=== PATIENT | male | born 1945 | race Caucasian/White ===

== ENCOUNTER 2018-04-29 06:23 | Day surgery (SDC) | payer MEDICARE ==
[2018-04-27 15:38] VITALS: BMI 41.4
[~2018-04-29 06:23] MED LIST: DEXAMETHASONE SOD PHOSPHATE 10 MG/ML 1 ML VIAL IV ONE; LIDOCAINE 1% 20 ML VIAL (10MG/ML) FOR IV START INTRADERMA PRN; ONDANSETRON 4 MG/2 ML VIAL IVP ONE; ONDANSETRON 4 MG/2 ML VIAL IVP PRN; SCOPOLAMINE 1.5MG/72HR PATCH TRANSDERM ONE
[2018-04-29] MEDS ORDERED: LACTATED RINGERS 1,000 ML IV SCH (06:30)
[2018-04-29 07:17] VITALS: RESP 18; TEMP 96.5
[2018-04-29 07:18] LABS: Glucose,Whole Blood 108 mg/dL (75-99)
[2018-04-29] MEDS ORDERED: PROPOFOL 10 MG/ML 20 ML VIAL IV ONE (08:28)
[2018-04-29] MEDS ORDERED: LIDOCAINE 1% INJ 10MG/ML (20 ML MDV) ONE (08:28)
[2018-04-29 09:01] VITALS: BP 126/77; PULSE 65
[2018-04-29 09:03] LABS: Glucose,Whole Blood 112 mg/dL (75-99)
--- NOTE | 2018-04-29 13:59 | P.PCN ---
Date of Procedure: 04/29/18 Procedure(s) Performed: Procedure: Esophagogastroduodenoscopy. Preoperative diagnosis: History of anemia and history of esophageal varices that required band ligation in the past. Postoperative diagnosis: Gastritis consistent with portal gastropathy and small sliding hiatal hernia but no evidence of gastric or esophageal varices or spontaneous bleeding. Preparation and sedation: Was provided by anesthesia. Brief clinical history: The patient is a 72-year-old male with history of diabetes mellitus, stage III chronic kidney disease and chronic congestive heart failure and bilateral lower extremity cellulitis. The patient was initially hospitalized back in early 2015 because of GI bleeding and anemia and was found to have esophageal varices and portal gastropathy. He had band ligation of his varices in August and in September 2015. He has required 5 units of packed cells transfused around the onset of that illness. An EGD and colonoscopy was performed 07/20/[address] Martinez and the patient was referred because of the finding of varices. The patient had the working diagnosis of nonalcoholic fatty liver disease although he did give history of drinking alcohol 6 or 7 years prior. This evaluation today is to assess his varices and initiate band ligation to prevent further bleeding Procedure: With the patient on his left lateral decubitus position and after informed consent and adequate sedation, I passed the Olympus GIF-140 60 video upper endoscope through the cricopharyngeus down the esophagus. The previously described esophageal varices were found well obliterated with no stigmata of bleeding. GE junction was around 42 cm from the incisors and there was a small sliding hiatal hernia. The endoscope was then passed into the stomach which was insufflated with air and inspected in detail including the retroflex view in the cardia. The antrum and immediate prepyloric area showed diffuse submucosal hemorrhages and erythema and some degree of edema as previously described but no ulcers or active bleeding. Pyloric channel, duodenal bulb, post bulbar area and descending duodenum appeared within normal limits. The patient tolerated the procedure well. Plan: The patient was reassured. Will allow regular diet. He'll follow up in the office as planned regarding his liver workup and management and we will keep you updated on his progress.
== END 2018-04-29 09:42 | disposition home or self-care (01) ==
LOC: ORWHC2ENDO 06:23
DX: K29.70 Gastritis, unspecified, without bleeding (principal); K31.89 Other diseases of stomach and duodenum; K44.9 Diaphragmatic hernia without obstruction or gangrene; D50.0 Iron deficiency anemia secondary to blood loss (chronic); I85.00 Esophageal varices without bleeding; K21.9 Gastro-esophageal reflux disease without esophagitis; E11.22 Type 2 diabetes mellitus with diabetic chronic kidney disease; I13.0 Hypertensive heart and chronic kidney disease with heart failure and stage 1 through stage 4 chronic kidney disease, or unspecified chronic kidney disease; N18.3 Chronic kidney disease, stage 3 (moderate); I50.9 Heart failure, unspecified; Z79.84 Long term (current) use of oral hypoglycemic drugs; E78.5 Hyperlipidemia, unspecified; Z79.2 Long term (current) use of antibiotics; Z79.899 Other long term (current) drug therapy; M19.90 Unspecified osteoarthritis, unspecified site; L03.116 Cellulitis of left lower limb; L03.115 Cellulitis of right lower limb
CPT/HCPCS: 43235; J2001; J2704

== ENCOUNTER 2018-08-13 22:09 | Inpatient (IN) | payer MEDICAID, MEDICARE, OTHER ==
[2018-08-13] MEDS ORDERED: SODIUM CHLORIDE 0.9% 500 ML 500 ML IV STA (22:43)
[2018-08-13] MEDS ORDERED: SODIUM CHLORIDE 0.9% 1,000 ML IV STA (22:43)
[2018-08-13] MEDS ORDERED: LACTULOSE 200 GM/300 ML (FROM 1/2 GAL JUG) RECTAL ONE (22:43)
--- NOTE | 2018-08-13 22:49 | ED ---
Altered Mental Status HPI - General Chief Complaint: Recheck/Abnormal Lab/Rx Stated Complaint: lethargic Time Seen by Provider: 08/13/18 22:13 Source: EMS, RN notes reviewed, old records reviewed Mode of arrival: EMS Limitations: altered mental status - History of Present Illness Initial Comments: This is a 72-year-old male except in transfer patient is poor historian history obtained from patient's chart as well as patient's prior medical record. EMS MD Complaint: altered mental status, confusion, weakness -: days(s) Severity: moderate Consistency of Symptoms: waxing and waning, getting worse Context: liver disease Associated Symptoms: denies other symptoms - Related Data Home Medications Medication Instructions Recorded Confirmed Acetaminophen Tab [Tylenol] 650 mg PO TID PRN 08/13/18 08/13/18 Ergocalciferol (Vitamin D2) 50,000 unit PO Q7DAYS 08/13/18 08/13/18 [Drisdol] Famotidine [Pepcid] 20 mg PO HS 08/13/18 08/13/18 HYDROcodone/APAP 5-325MG [[place] 1 tab PO DIRECTED 08/13/18 08/13/18 5-325] Midodrine HCl [ProAmatine] 10 mg PO MOWEFR 08/13/18 08/13/18 Nystatin 100,000Unit/gm Cream 1 applic TOPICAL DIRECTED 08/13/18 08/13/18 [Mycostatin Cream] Petrolatum, White [Aquaphor] 1 applic TOPICAL DAILY 08/13/18 08/13/18 Pravastatin Sodium [Pravachol] 40 mg PO HS 08/13/18 08/13/18 Propranolol HCl [Inderal] 60 mg PO TID 08/13/18 08/13/18 Simethicone 80 mg PO Q6HR 08/13/18 08/13/18 guaiFENesin [Diabetic Tussin Ex] 200 mg PO Q4HR PRN 08/13/18 08/13/18 Allergies Allergy/AdvReac Type Severity Reaction Status Date / Time No Known Allergies Allergy Verified 08/13/18 23:37 Review of Systems ROS Statement: Those systems with pertinent positive or pertinent negative responses have been documented in the HPI. ROS Other: All systems not noted in ROS Statement are negative. Past Medical History Past Medical History: Diabetes Mellitus, Eye Disorder, GERD/Reflux, GI Bleed, Hyperlipidemia, Hypertension, Osteoarthritis (OA), Skin Disorder Additional Past Medical History / Comment(s): HX GI BLEEDING. esophageal varicies History of Any Multi-Drug Resistant Organisms: None Reported Past Surgical History: Cholecystectomy, Heart Catheterization, Orthopedic Surgery, Tonsillectomy Additional Past Surgical History / Comment(s): colonoscopy, right kneerepair 3, . esophoheal varicies banding Past Anesthesia/Blood Transfusion Reactions: No Reported Reaction Past Psychological History: No Psychological Hx Reported Smoking Status: Never smoker Past Alcohol Use History: None Reported Past Drug Use History: None Reported - Past Family History Mother Family Medical History: Hypertension, Myocardial Infarction ([place]) Father Family Medical History: Hypertension, Myocardial Infarction ([place]) General Exam Limitations: altered mental status General appearance: alert, in no apparent distress, lethargic Head exam: Present: atraumatic, normocephalic, normal inspection Eye exam: Present: normal appearance, PERRL, EOMI. Absent: scleral icterus, conjunctival injection, periorbital swelling ENT exam: Present: normal exam, mucous membranes moist Neck exam: Present: normal inspection. Absent: tenderness, meningismus, lymphadenopathy Respiratory exam: Present: normal lung sounds bilaterally. Absent: respiratory distress, wheezes, rales, rhonchi, stridor Cardiovascular Exam: Present: regular rate, normal rhythm, normal heart sounds. Absent: systolic murmur, diastolic murmur, rubs, gallop, clicks GI/Abdominal exam: Present: soft, normal bowel sounds. Absent: distended, tenderness, guarding, rebound, rigid Extremities exam: Present: normal inspection, full ROM, normal capillary refill. Absent: tenderness, pedal edema, joint swelling, calf tenderness Back exam: Present: normal inspection Neurological exam: Present: alert, oriented X3, CN II-XII intact Psychiatric exam: Present: normal affect, normal mood Skin exam: Present: warm, dry, intact, normal color. Absent: rash Course Vital Signs 08/13/18 08/13/18 08/13/18 22:12 22:35 23:00 Temperature 98.2 F Pulse Rate 63 61 63 Respiratory 20 18 21 Rate Blood Pressure 109/79 88/51 91/57 O2 Sat by Pulse 98 93 L 92 L Oximetry 08/13/18 08/14/18 23:38 00:33 Temperature Pulse Rate 62 60 Respiratory 21 15 Rate Blood Pressure 96/42 102/46 O2 Sat by Pulse 96 94 L Oximetry - Reevaluation(s) Reevaluation #1: 08/13/18 22:49 Medical and transfer paperwork are reviewed Reevaluation #2: 08/13/18 22:49 Patient was accepted in transfer from [facility] Patient has multiple recurrences of similar similar complaints, encephalopathy Medical Decision Making - Medical Decision Making 73 male coming in with multiple complaints, sepsis, hepatic encephalopathy as well as chronic renal failure. Patient unresponsive which at this time is baseline. We'll admit for further evaluation management - Lab Data Result diagrams: 08/14/18 07:55 08/14/18 07:55 Disposition Clinical Impression: Weakness, Fever, UTI (urinary tract infection), Encephalopathy, Hyperammonemia , Diabetes Disposition: ADMITTED IP TO THIS HOSP Condition: Fair Is patient prescribed a controlled substance at d/c from ED?: No
[2018-08-13] MEDS: SODIUM CHLORIDE 0.9% 1,000 ML IV SCH (22:58)
[2018-08-14] MEDS: LACTULOSE 200 GM/300 ML (FROM 1/2 GAL JUG) RECTAL SCH ×5 (00:31→23:22)
[2018-08-14 01:50] LABS: Glucose,Whole Blood 108 mg/dL (75-99)
[2018-08-14 01:52] LABS: ABG Base Excess 6.1 mmol/L; ABG HCO3 32 mmol/L (21-25); ABG Oxygen Saturation 93.1 % (94-97); ABG PCO2 62 mmHg (35-45); ABG PH 7.32 (7.35-7.45); ABG PO2 67 mmHg (83-108); ABG TCO2 34 mmol/L (19-24)
[2018-08-14 02:08] LABS: Anisocytosis Slight; HCT 31.8 % (39.0-53.0); HGB 9.2 gm/dL (13.0-17.5); Hypochromasia Marked; MCH 30.8 pg (25.0-35.0); MCHC 29.1 g/dL (31.0-37.0); MCV 105.8 fL (80.0-100.0); Macrocytosis Marked; Mean Platelet Volume 7.4; Platelet Count 100 k/uL (150-450); Poikilocytosis Slight; RDW 19.6 % (11.5-15.5); WBC 4.8 k/uL (3.8-10.6)
--- NOTE | 2018-08-14 02:19 | XR ---
EXAMINATION TYPE: XR chest 1V portable DATE OF EXAM: 08/14/2018 COMPARISON: 01/17/2016 HISTORY: Congestion TECHNIQUE: Single frontal view of the chest is obtained. FINDINGS: There is pulmonary edema. Heart is enlarged. There is blunting of right costophrenic angle . There is right central venous catheter with the tip in the superior vena cava. IMPRESSION: Congestive heart failure with right pleural effusion that is new compared to old exam. C ardiomegaly unchanged.
[2018-08-14 02:20] LABS: Albumin 2.5 g/dL (3.5-5.0); Calcium 8.7 mg/dL (8.4-10.2); Magnesium 1.9 mg/dL (1.6-2.3); Phosphorus 4.7 mg/dL (2.5-4.5); Potassium 3.5 mmol/L (3.5-5.1); Total Bilirubin 1.2 mg/dL (0.2-1.3); Total Protein 7.1 g/dL (6.3-8.2)
[2018-08-14 02:36] LABS: Lactic Acid, Venous 2.4 mmol/L (0.7-2.0)
[2018-08-14 02:48] LABS: Band Neutrophils % 3 %; Eosinophils # (M) 0.19 k/uL (0-0.7); Lymphocytes # (M) 0.91 k/uL (1.0-4.8); Monocytes # (M) 0.24 k/uL (0-1.0); Neutrophils % (M) 70 %; Nucleated Red Blood Cells 1 /100 WBC (0-0); Total Cells Counted 200
[2018-08-14] MEDS ORDERED: SODIUM CHLORIDE 0.9% 1,000 ML IV ONE (03:00)
[2018-08-14] MEDS ORDERED: NALOXONE 0.4 MG/ML 1 ML VIAL IV PRN (03:51)
[2018-08-14] MEDS: SODIUM CHLORIDE 0.9% 1,000 ML IV SCH ×2 (04:00→20:19)
[2018-08-14 06:19] LABS: Glucose,Whole Blood 99 mg/dL (75-99)
--- NOTE | 2018-08-14 07:13 | XR ---
EXAMINATION TYPE: XR chest 1V DATE OF EXAM: 08/14/2018 CLINICAL HISTORY: Difficulty breathing progress study. TECHNIQUE: Single AP portable semiupright view of the chest is obtained. COMPARISON: Chest x-ray from earlier today and older studies. FINDINGS: There is stable right internal jugular dual-lumen dialysis catheter. There is persistent c ardiomegaly. There is bilateral reticulonodular change with more prominent right basilar opacity. The re is right-sided volume loss with mediastinal shift. There is ectatic thoracic aorta. IMPRESSION: Overall stable findings from x-ray earlier today, there is cardiomegaly with moderate siz e right pleural effusion and associated right basilar atelectasis and/or infiltrate. New reticular no dular opacities bilaterally could reflect background of diffuse edema and/or infiltrates but nodulari ty is concerning. Metastatic disease and septic emboli are in the differential. Correlate clinically.
[2018-08-14 08:23] LABS: Calcium 9.1 mg/dL (8.4-10.2); Potassium 3.5 mmol/L (3.5-5.1)
[2018-08-14 08:29] LABS: Anisocytosis Slight; Basophils % (A) 1 %; Eosinophils # (A) 0.1 k/uL (0-0.7); Eosinophils % (A) 3 %; HCT 31.1 % (39.0-53.0); Hypochromasia Marked; Lymphocytes # (A) 0.8 k/uL (1.0-4.8); Lymphocytes % (A) 18 %; MCH 30.1 pg (25.0-35.0); MCHC 28.9 g/dL (31.0-37.0); MCV 104.1 fL (80.0-100.0); Macrocytosis Marked; Mean Platelet Volume 7.7; Monocytes # (A) 0.4 k/uL (0-1.0); Monocytes % (A) 9 %; Neutrophils # (A) 2.8 k/uL (1.3-7.7); Neutrophils % (A) 66 %; RBC 2.99 m/uL (4.30-5.90); RDW 19.5 % (11.5-15.5); WBC 4.3 k/uL (3.8-10.6)
[2018-08-14] MEDS ORDERED: ENOXAPARIN 40 MG/0.4 ML SYRINGE SQ SCH (09:00)
[2018-08-14] MEDS: PANTOPRAZOLE 40 MG/10 ML VIAL IV SCH (09:43)
[2018-08-14] MEDS ORDERED: RX INFO: IV CONTRAST WAS GIVEN 1 EACH MISC MISCELLANE PRN (09:55)
--- NOTE | 2018-08-14 10:08 | P.CNPUL ---
History of Present Illness Consult date: 08/14/18 Requesting physician: Brandee Thrasher Reason for consult: other (Critical care management) Chief complaint: Altered mental status History of present illness: This is a 72-year-old gentleman who follows with Dr. Hayden as his primary care physician. He has a history of end-stage renal disease receiving hemodialysis on Thursday, previous alcohol abuse, previous GI bleeding, hypertension, hyperlipidemia, diabetes mellitus. He was transferred here to the regular medical floor from [facility] yesterday due to altered mental status. He was found to have a fever of unknown origin and elevated ammonia levels. He subsequently developed hypotension and respiratory distress and an A team was called and he was transferred here to the intensive care unit. He is seen today in consultation. He is currently on BiPAP 14/5 and 50% FiO2 to maintain O2 saturations in the 90s. He is currently quite weak and obtunded. Difficult to arouse. He currently has a 0.9 normal saline at 100 MLS per hour. No urine output currently. Chest x-ray shows evidence of cardiomegaly with moderate size right pleural effusion and associated right basilar atelectasis and/or infiltrate. Reticular nodular opacities bilaterally possibly reflecting diffuse edema and/or infiltrates but nodularity is concerning. Metastatic disease and septic emboli air in the differential. White count 4.8. Hemoglobin 9.2. Platelet count 100,000 and creatinine 2.05. Initial lactic acid 2.4 currently 2.1. Current ammonia level 27. He did receive lactulose. He does have multiple open wounds on the lower extremities and sacral area. He'll be initiated on Unasyn. Review of Systems ROS unobtainable: due to mental status Past Medical History Past Medical History: Diabetes Mellitus, Eye Disorder, GERD/Reflux, GI Bleed, Hyperlipidemia, Hypertension, Osteoarthritis (OA), Skin Disorder Additional Past Medical History / Comment(s): HX GI BLEEDING. esophageal varicies History of Any Multi-Drug Resistant Organisms: None Reported Past Surgical History: Cholecystectomy, Heart Catheterization, Orthopedic Surgery, Tonsillectomy Additional Past Surgical History / Comment(s): colonoscopy, right kneerepair 3, . esophoheal varicies banding Past Anesthesia/Blood Transfusion Reactions: No Reported Reaction Smoking Status: Never smoker - Past Family History Mother Family Medical History: Hypertension, Myocardial Infarction ([place]) Father Family Medical History: Hypertension, Myocardial Infarction ([place]) Medications and Allergies Home Medications Medication Instructions Recorded Confirmed Type Acetaminophen Tab [Tylenol] 650 mg PO TID PRN 08/13/18 08/13/18 History Ergocalciferol (Vitamin D2) 50,000 unit PO Q7DAYS 08/13/18 08/13/18 History [Drisdol] Famotidine [Pepcid] 20 mg PO HS 08/13/18 08/13/18 History HYDROcodone/APAP 5-325MG [[place] 1 tab PO DIRECTED 08/13/18 08/13/18 History 5-325] Midodrine HCl [ProAmatine] 10 mg PO MOWEFR 08/13/18 08/13/18 History Nystatin 100,000Unit/gm Cream 1 applic TOPICAL DIRECTED 08/13/18 08/13/18 History [Mycostatin Cream] Petrolatum, White [Aquaphor] 1 applic TOPICAL DAILY 08/13/18 08/13/18 History Pravastatin Sodium [Pravachol] 40 mg PO HS 08/13/18 08/13/18 History Propranolol HCl [Inderal] 60 mg PO TID 08/13/18 08/13/18 History Simethicone 80 mg PO Q6HR 08/13/18 08/13/18 History guaiFENesin [Diabetic Tussin Ex] 200 mg PO Q4HR PRN 08/13/18 08/13/18 History Allergies Allergy/AdvReac Type Severity Reaction Status Date / Time No Known Allergies Allergy Verified 08/13/18 23:37 Physical Exam Vitals: Vital Signs Temp Pulse Pulse Resp BP BP Pulse Ox 08/14/18 06:00 56 L 16 90/50 93 L 08/14/18 05:30 56 L 14 91/44 93 L 08/14/18 05:00 56 L 14 86/45 94 L 08/14/18 04:46 53 L 14 78/38 93 L 08/14/18 04:00 97.8 F 57 L 14 86/42 94 L 08/14/18 03:30 56 L 14 78/58 93 L 08/14/18 03:00 57 L 14 80/48 99 08/14/18 02:30 60 14 87/48 94 L 08/14/18 02:15 97.7 F 61 16 86/56 89 L 02/02/19 00:33 60 15 102/46 94 L 08/13/18 23:38 62 21 96/42 96 08/13/18 23:00 63 21 91/57 92 L 08/13/18 22:35 61 18 88/51 93 L 08/13/18 22:12 98.2 F 63 20 109/79 98 Intake and Output 08/13/18 08/14/18 08/14/18 22:59 06:59 14:59 Intake Total 1200 200 Output Total 0 0 Balance 1200 200 Intake: Intake, IV Titration 1200 200 Amount Sodium Chloride 0.9% 1, 200 200 000 ml @ 100 mls/hr IV . Q10H STA Rx#:[id number] Sodium Chloride 0.9% 1, 1000 000 ml @ 999 mls/hr IV . Q1H1M ONE Rx#:[id number] Output: Urine 0 0 Stool 0 Other: Voiding Method Indwelling Catheter Weight 127.006 kg - Constitutional General appearance: disheveled, mild distress, morbidly obese - EENT Eyes: EOMI, PERRLA ENT: hearing grossly normal Ears: bilateral: normal - Neck Neck: normal ROM Carotids: bilateral: upstroke normal Thyroid: bilateral: normal size - Respiratory Respiratory: bilateral: rales, rhonchi, prolonged expiration - Cardiovascular Rhythm: regular Heart sounds: normal: S1, S2 - Gastrointestinal General gastrointestinal: normal bowel sounds - Integumentary Integumentary: cellulitis, ulcer - Neurologic Obtunded. - Musculoskeletal Musculoskeletal: generalized weakness - Psychiatric Unable to assess. Results - Laboratory Findings CBC and BMP: 08/14/18 07:55 08/14/18 07:55 ABG ABG pH 7.32 (7.35-7.45) L 08/14/18 01:47 ABG pCO2 62 mmHg (35-45) H 08/14/18 01:47 ABG pO2 67 mmHg (83-108) L 08/14/18 01:47 ABG O2 Saturation 93.1 % (94-97) L 08/14/18 01:47 Abnormal lab findings: Abnormal Labs 08/14/18 08/14/18 08/14/18 01:38 01:47 01:53 RBC 3.00 L Hgb 9.2 L Hct 31.8 L MCV 105.8 H MCHC 29.1 L RDW 19.6 H Plt Count 100 L Lymphocytes # (Manual) 0.91 L Nucleated RBCs 1 H ABG pH 7.32 L ABG pCO2 62 H ABG pO2 67 L ABG HCO3 32 H ABG Total CO2 34 H ABG O2 Saturation 93.1 L BUN Creatinine Glucose POC Glucose (mg/dL) 108 H Plasma Lactic Acid Lucio Phosphorus AST Alkaline Phosphatase Albumin 08/14/18 08/14/18 08/14/18 01:53 01:53 05:51 RBC Hgb Hct MCV MCHC RDW Plt Count Lymphocytes # (Manual) Nucleated RBCs ABG pH ABG pCO2 ABG pO2 ABG HCO3 ABG Total CO2 ABG O2 Saturation BUN Creatinine 2.05 H Glucose 113 H POC Glucose (mg/dL) Plasma Lactic Acid Lucio 2.4 H* 2.1 H* Phosphorus 4.7 H AST 94 H Alkaline Phosphatase 252 H Albumin 2.5 L 08/14/18 08/14/18 07:55 07:55 RBC 2.99 L Hgb 9.0 L Hct 31.1 L MCV 104.1 H MCHC 28.9 L RDW 19.5 H Plt Count Lymphocytes # (Manual) Nucleated RBCs ABG pH ABG pCO2 ABG pO2 ABG HCO3 ABG Total CO2 ABG O2 Saturation BUN 21 H Creatinine 2.16 H Glucose 103 H POC Glucose (mg/dL) Plasma Lactic Acid Lucio Phosphorus 5.0 H AST Alkaline Phosphatase Albumin - Diagnostic Findings Chest x-ray: image reviewed Assessment and Plan Assessment: Impression: #1 Altered mental status of unclear etiology. Suspect metabolic encephalopathy secondary to suspected sepsis. #2 Lactic acidosis contrary to suspected sepsis possibly cellulitis from the lower extremities and coccyx area wounds. #3 Acute hypoxic/hypercapnic respiratory failure secondary to fluid volume overload and possible septic emboli, right pleural effusion with infiltrate. Currently requiring BiPAP support. #4 Morbid obesity. #5 Previous history of alcoholism. #6 Anemia secondary to above. #7 Thrombocytopenia secondary to above. #8 Acute on chronic renal failure with end-stage renal disease receiving renal replacement therapy with hemodialysis Thursday. #9 Diabetes mellitus #10 Hypertension, history of. #11 Hyperlipidemia. #12 History of GI bleed and esophageal varices status post banding. Plan: The patient was seen and evaluated by Dr. Matamoros. Chest x-ray and labs were reviewed. There is some component of fluid volume overload including a right pleural effusion and possible infiltrate with some nodular densities and possible septic emboli. We'll obtain a computed tomography scan of the chest today. Added Unasyn. Nephrology consult. He did speak with the patient's power of city attorney, his brother Daniel Morales regarding the multiple comorbidities and poor prognosis at this point. The patient is a DO NOT INTUBATE CODE STATUS. We'll continue with full supportive care for now. He may benefit from a hospice/comfort care consult once the family agrees. We will continue to follow and make further recommendations based on his clinical status. I, the cosigning physician, performed a history & physical examination of the patient. Lungs sounds with few scattered rhonchi, crackles in the right posterior base, diminished. Maintaining good O2 saturations in the 90s on BiPAP 14/5 with FiO2 at 50%. I discussed the assessment and plan of care with my nurse practitioner, Estrellita Sinha. I attest to the above consultation as dictated by her. Time with Patient: Greater than 30
--- NOTE | 2018-08-14 10:22 | P.CNNES ---
History of Present Illness Consult date: 08/14/18 Chief complaint: Altered mental status, transferred from [facility] History of Present Illness: Gentleman from [facility] currently on dialysis via right jugular permacath, unclear how long. As per paper chart started somewhere end of June 2018 and July 2018. Unable to provide any history currently on BiPAP. Hypotensive with systolics in 80s to 90s. He has elevated ammonia and wound infections. Started on antibiotics in ICU currently not on pressors. 15 mL of urine output since last night via Davies catheter. Chest x-ray shows right pleural effusion with pneumonia versus septic emboli. He takes midodrine at home. Review of Systems ROS unobtainable: due to mental status (Unable to obtain at this point) Past Medical History Past Medical History: Diabetes Mellitus, Eye Disorder, GERD/Reflux, GI Bleed, Hyperlipidemia, Hypertension, Osteoarthritis (OA), Skin Disorder Additional Past Medical History / Comment(s): HX GI BLEEDING. esophageal varicies History of Any Multi-Drug Resistant Organisms: None Reported Past Surgical History: Cholecystectomy, Heart Catheterization, Orthopedic Surgery, Tonsillectomy Additional Past Surgical History / Comment(s): colonoscopy, right kneerepair 3, . esophoheal varicies banding Past Anesthesia/Blood Transfusion Reactions: No Reported Reaction Smoking Status: Never smoker - Past Family History Mother Family Medical History: Hypertension, Myocardial Infarction ([place]) Father Family Medical History: Hypertension, Myocardial Infarction ([place]) Medications and Allergies Home Medications Medication Instructions Recorded Confirmed Type Acetaminophen Tab [Tylenol] 650 mg PO TID PRN 08/13/18 08/13/18 History Ergocalciferol (Vitamin D2) 50,000 unit PO Q7DAYS 08/13/18 08/13/18 History [Drisdol] Famotidine [Pepcid] 20 mg PO HS 08/13/18 08/13/18 History HYDROcodone/APAP 5-325MG [[place] 1 tab PO DIRECTED 08/13/18 08/13/18 History 5-325] Midodrine HCl [ProAmatine] 10 mg PO MOWEFR 08/13/18 08/13/18 History Nystatin 100,000Unit/gm Cream 1 applic TOPICAL DIRECTED 08/13/18 08/13/18 History [Mycostatin Cream] Petrolatum, White [Aquaphor] 1 applic TOPICAL DAILY 08/13/18 08/13/18 History Pravastatin Sodium [Pravachol] 40 mg PO HS 08/13/18 08/13/18 History Propranolol HCl [Inderal] 60 mg PO TID 08/13/18 08/13/18 History Simethicone 80 mg PO Q6HR 08/13/18 08/13/18 History guaiFENesin [Diabetic Tussin Ex] 200 mg PO Q4HR PRN 08/13/18 08/13/18 History Allergies Allergy/AdvReac Type Severity Reaction Status Date / Time No Known Allergies Allergy Verified 08/13/18 23:37 Physical Examination - Vital Signs Vital Signs: Vital Signs Temp Pulse Pulse Resp BP BP Pulse Ox 08/14/18 09:30 54 L 8 L 103/91 98 08/14/18 09:00 55 L 11 L 83/42 94 L 08/14/18 08:30 55 L 11 L 86/52 96 08/14/18 08:01 97.5 F L 56 L 11 L 81/45 92 L 08/14/18 07:30 53 L 9 L 87/42 95 08/14/18 06:00 56 L 16 90/50 93 L 08/14/18 05:30 56 L 14 91/44 93 L 08/14/18 05:00 56 L 14 86/45 94 L 08/14/18 04:46 53 L 14 78/38 93 L 08/14/18 04:00 97.8 F 57 L 14 86/42 94 L 08/14/18 03:30 56 L 14 78/58 93 L 08/14/18 03:00 57 L 14 80/48 99 08/14/18 02:30 60 14 87/48 94 L 08/14/18 02:15 97.7 F 61 16 86/56 89 L 08/14/18 00:33 60 15 102/46 94 L 08/13/18 23:38 62 21 96/42 96 08/13/18 23:00 63 21 91/57 92 L 08/13/18 22:35 61 18 88/51 93 L 08/13/18 22:12 98.2 F 63 20 109/79 98 Intake and Output 08/13/18 08/14/18 08/14/18 22:59 06:59 14:59 Intake Total 1200 300 Output Total 0 15 Balance 1200 285 Intake: IV 100 Sodium Chloride 0.9% 1, 100 000 ml @ 100 mls/hr IV . Q10H DANIEL Rx#:[id number] Intake, IV Titration 1200 200 Amount Sodium Chloride 0.9% 1, 200 200 000 ml @ 100 mls/hr IV . Q10H STA Rx#:[id number] Sodium Chloride 0.9% 1, 1000 000 ml @ 999 mls/hr IV . Q1H1M ONE Rx#:[id number] Output: Urine 0 15 Stool 0 Other: Voiding Method Indwelling Catheter Weight 127.006 kg No acute distress Right jugular permacath S1-S2 heard Diminished breath sounds Edema. Results - Laboratory Findings CBC and BMP: 08/14/18 07:55 08/14/18 07:55 Abnormal Lab Findings: Abnormal Labs 08/14/18 08/14/18 08/14/18 01:38 01:47 01:53 RBC 3.00 L Hgb 9.2 L Hct 31.8 L MCV 105.8 H MCHC 29.1 L RDW 19.6 H Plt Count 100 L Lymphocytes # (Manual) 0.91 L Nucleated RBCs 1 H ABG pH 7.32 L ABG pCO2 62 H ABG pO2 67 L ABG HCO3 32 H ABG Total CO2 34 H ABG O2 Saturation 93.1 L BUN Creatinine Glucose POC Glucose (mg/dL) 108 H Plasma Lactic Acid Lucio Phosphorus AST Alkaline Phosphatase Albumin 08/14/18 08/14/18 08/14/18 01:53 01:53 05:51 RBC Hgb Hct MCV MCHC RDW Plt Count Lymphocytes # (Manual) Nucleated RBCs ABG pH ABG pCO2 ABG pO2 ABG HCO3 ABG Total CO2 ABG O2 Saturation BUN Creatinine 2.05 H Glucose 113 H POC Glucose (mg/dL) Plasma Lactic Acid Lucio 2.4 H* 2.1 H* Phosphorus 4.7 H AST 94 H Alkaline Phosphatase 252 H Albumin 2.5 L 08/14/18 08/14/18 07:55 07:55 RBC 2.99 L Hgb 9.0 L Hct 31.1 L MCV 104.1 H MCHC 28.9 L RDW 19.5 H Plt Count Lymphocytes # (Manual) Nucleated RBCs ABG pH ABG pCO2 ABG pO2 ABG HCO3 ABG Total CO2 ABG O2 Saturation BUN 21 H Creatinine 2.16 H Glucose 103 H POC Glucose (mg/dL) Plasma Lactic Acid Lucio Phosphorus 5.0 H AST Alkaline Phosphatase Albumin Assessment and Plan Assessment: #1 encephalopathy suspected sepsis and hypotension. #2 ESRD/HERMELINDO on HD, unclear based on the paper chart. #3 severe sepsis with marginal blood pressures. #4 pleural effusion with septic emboli #5 anemia #6 edema Plan: #1 no acute indication for hemodialysis today. Agree with IV fluids for now. #[address] chest with contrast. #3 antibiotics per primary team #4 restart midodrine #5 prognosis guarded with multiple comorbid conditions.
[2018-08-14 10:59] LABS: Platelet Count 74 k/uL (150-450)
[2018-08-14] MEDS: AMPICILLIN-SULBACTAM 3 GM in SODIUM CHLORIDE 0.9% 100 ML IVPB SCH ×3 (11:20→23:22)
[2018-08-14] MEDS: IPRATROPIUM-ALBUTEROL 3 ML NEB INHALATION SCH ×4 (12:16→23:30)
[2018-08-14 12:21] LABS: Glucose,Whole Blood 111 mg/dL (75-99)
--- NOTE | 2018-08-14 12:32 | CT ---
EXAMINATION TYPE: CT chest w con DATE OF EXAM: 08/14/2018 COMPARISON: Chest x-ray earlier today and older studies HISTORY: Resp. failure, nodular density. Abno rmal chest x-ray. CT DLP: 846.3 mGycm. Automated Exposure Control for Dose Reduction was Utilized. TECHNIQUE: CT scan of the thorax is performed following with IV Contrast, patient injected with 100 mL of Isovue 300. FINDINGS: LUNGS: There is only small right pleural fluid collection which does not completely layer dependently . There is more prominent central right lung atelectasis and/or consolidation with relative sparing o f the right upper lobe and the anterior mid lung. Elevated right hemidiaphragm is noted. Correspondin g to chest x-ray there are scattered small nodules and nodular consolidation seen bilaterally for ref erence is 1.3 x 1.1 cm right middle lobe nodule axial image 20, nodules are seen bilaterally involvin g upper and lower lungs. Majority are subcentimeter in size. There is dependent atelectasis in the le ft lung base. No cavitary lesions are present bilaterally. MEDIASTINUM: There are no greater than 1 cm hilar or mediastinal lymph nodes. Prominent but subcentim eter lymph nodes in the paratracheal region and prevascular region are noted No pericardial effusio n is seen. Main pulmonary artery is dilated at 4.2 cm image 18, CT findings consistent with underlyi ng pulmonary artery hypertension. Right internal jugular dialysis catheter terminates in SVC. There i s right-sided volume loss with mediastinal shift to the right. Coronary artery calcification is prese nt which is noted marker for coronary artery disease. Heart size is perhaps mildly enlarged with ante rior rotation of cardiac apex. Prominence of intra-arterial fat is present in the interarterial septu m. OTHER: There is heterogeneous liver with lobulated peripheral margin with focal right hepatic dome ir regular hypodense mass measuring approximately 10 x 9.1 cm axial image 34, surrounding ascites is pre sent. Spleen is mildly enlarged 14.0 cm coronal image 72 with mild surrounding ascites. Cholecystecto my clips are present. IMPRESSION: 1. Suspect cirrhotic liver with suspicious right hepatic dome mass worrisome for focal HCC. There is hepatosplenomegaly with mild surrounding ascites. 2. Scattered bilateral pulmonary nodules suspicious for diffuse metastatic disease given suspicion fo r focal HCC. Correlate clinically. 3. Small nondependent right pleural fluid collection. No moderate-sized pleural effusion is noted.
[2018-08-14] MEDS ORDERED: SODIUM CHLORIDE 0.9% 500 ML 500 ML IV ONE ×2 (13:44)
--- NOTE | 2018-08-14 15:40 | P.HPIM ---
History of Present Illness H&P Date: 08/14/18 Chief Complaint: Altered mental status 72-year-old gentleman with a past medical history significant for ESRD on dialysis Thursday and Thursday history of hypertension, hyperlipidemia, diabetes history please GI bleed and alcohol abuse comes in to the hospital for above-mentioned complaints. Patient apparently was initially admitted to [facility] for altered mental status. His blood pressures were on the lower side and 80s and 90s and the family wanted the patient be transferred to [facility]. He was initially admitted to [facility] on Gen. medical floor but since his blood pressures were low , A team was called and patient was transferred to ICU. At the time examination the patient was awake but minimally responsive and drowsy. He is answering only one-word sentences. He opens his eyes to be calling his name tries to answer but doesn't answer much. He did not complain of any chest pain racing heart when I asked him. He was complaining of shortness of breath but no cough, no abdominal pain he was moving his upper and lower extremities to command. he is currently put on BiPAP and is managed ICU. Nephrology also consulted. Review of Systems All systems: negative Past Medical History Past Medical History: Diabetes Mellitus, Eye Disorder, GERD/Reflux, GI Bleed, Hyperlipidemia, Hypertension, Osteoarthritis (OA), Skin Disorder Additional Past Medical History / Comment(s): HX GI BLEEDING. esophageal varicies History of Any Multi-Drug Resistant Organisms: None Reported Past Surgical History: Cholecystectomy, Heart Catheterization, Orthopedic Surgery, Tonsillectomy Additional Past Surgical History / Comment(s): colonoscopy, right kneerepair 3, . esophoheal varicies banding Past Anesthesia/Blood Transfusion Reactions: No Reported Reaction Smoking Status: Never smoker - Past Family History Mother Family Medical History: Hypertension, Myocardial Infarction ([place]) Father Family Medical History: Hypertension, Myocardial Infarction ([place]) Medications and Allergies Home Medications Medication Instructions Recorded Confirmed Type Acetaminophen Tab [Tylenol] 650 mg PO TID PRN 08/13/18 08/13/18 History Ergocalciferol (Vitamin D2) 50,000 unit PO Q7DAYS 08/13/18 08/13/18 History [Drisdol] Famotidine [Pepcid] 20 mg PO HS 08/13/18 08/13/18 History HYDROcodone/APAP 5-325MG [Mentor 1 tab PO DIRECTED 08/13/18 08/13/18 History 5-325] Midodrine HCl [ProAmatine] 10 mg PO MOWEFR 08/13/18 08/13/18 History Nystatin 100,000Unit/gm Cream 1 applic TOPICAL DIRECTED 08/13/18 08/13/18 History [Mycostatin Cream] Petrolatum, White [Aquaphor] 1 applic TOPICAL DAILY 08/13/18 08/13/18 History Pravastatin Sodium [Pravachol] 40 mg PO HS 08/13/18 08/13/18 History Propranolol HCl [Inderal] 60 mg PO TID 08/13/18 08/13/18 History Simethicone 80 mg PO Q6HR 08/13/18 08/13/18 History guaiFENesin [Diabetic Tussin Ex] 200 mg PO Q4HR PRN 08/13/18 08/13/18 History Allergies Allergy/AdvReac Type Severity Reaction Status Date / Time No Known Allergies Allergy Verified 08/13/18 23:37 Physical Exam Vitals: Vital Signs Temp Pulse Pulse Resp BP BP Pulse Ox 08/14/18 13:30 57 L 8 L 81/47 95 08/14/18 13:00 59 L 9 L 85/46 90 L 08/14/18 12:30 65 11 L 102/64 91 L 08/14/18 12:00 97.8 F 70 12 114/66 100 08/14/18 11:30 64 12 91/51 96 08/14/18 11:00 54 L 11 L 85/58 93 L 08/14/18 10:30 56 L 12 87/48 92 L 08/14/18 10:00 56 L 12 103/52 93 L 08/14/18 09:30 54 L 8 L 103/91 98 08/14/18 09:00 55 L 11 L 83/42 94 L 08/14/18 08:30 55 L 11 L 86/52 96 08/14/18 08:01 97.5 F L 56 L 11 L 81/45 92 L 08/14/18 07:30 53 L 9 L 87/42 95 08/14/18 06:00 56 L 16 90/50 93 L 08/14/18 05:30 56 L 14 91/44 93 L 08/14/18 05:00 56 L 14 86/45 94 L 08/14/18 04:46 53 L 14 78/38 93 L 08/14/18 04:00 97.8 F 57 L 14 86/42 94 L 08/14/18 03:30 56 L 14 78/58 93 L 08/14/18 03:00 57 L 14 80/48 99 08/14/18 02:30 60 14 87/48 94 L 08/14/18 02:15 97.7 F 61 16 86/56 89 L 08/14/18 00:33 60 15 102/46 94 L 08/13/18 23:38 62 21 96/42 96 08/13/18 23:00 63 21 91/57 92 L 08/13/18 22:35 61 18 88/51 93 L 08/13/18 22:12 98.2 F 63 20 109/79 98 Intake and Output 08/14/18 08/14/18 08/14/18 06:59 14:59 22:59 Intake Total 1200 900 Output Total 0 15 Balance 1200 885 Intake: IV 700 Ampicillin-Sulbactam 3 gm 100 In Sodium Chloride 0.9% 100 ml @ 200 mls/hr IVPB Q6HR DANIEL Rx#:[id number] Sodium Chloride 0.9% 1, 600 000 ml @ 100 mls/hr IV . Q10H DANIEL Rx#:[id number] Intake, IV Titration 1200 200 Amount Sodium Chloride 0.9% 1, 200 200 000 ml @ 100 mls/hr IV . Q10H STA Rx#:[id number] Sodium Chloride 0.9% 1, 1000 000 ml @ 999 mls/hr IV . Q1H1M ONE Rx#:[id number] Output: Urine 0 15 Stool 0 Other: Voiding Method Indwelling Catheter On exam, he is awake but drowsy. Responding to command at this stage HEENT: Conjunctivae normal. eyes normal. NECK: No JVD. No thyroid enlargement. No LNs CARDIOVASCULAR: S1, S2 RESPIRATION: Breath sounds diminished in the bases. I'm not able to appreciate any abnormal sounds ABDOMEN: Soft, nontender . No guarding. no masses palpable. LEGS: Patient is having cellulitis bilaterally. He also has a wound VAC in his left NERVOUS SYSTEM: Patient is drowsy. He is moving all of his upper and lower extremities to command Joints: Patient is having wound VAC of the left hip. Results CBC & Chem 7: 08/14/18 07:55 08/14/18 07:55 Labs: Abnormal Lab Results - Last 24 Hours (Table) 08/14/18 08/14/18 08/14/18 Range/Units 01:38 01:47 01:53 RBC 3.00 L (4.30-5.90) m/uL Hgb 9.2 L (13.0-17.5) gm/dL Hct 31.8 L (39.0-53.0) % MCV 105.8 H (80.0-100.0) fL MCHC 29.1 L (31.0-37.0) g/dL RDW 19.6 H (11.5-15.5) % Plt Count 100 L (150-450) k/uL Lymphocytes # (1.0-4.8) k/uL Lymphocytes # (Manual) 0.91 L (1.0-4.8) k/uL Nucleated RBCs 1 H (0-0) /100 WBC ABG pH 7.32 L (7.35-7.45) ABG pCO2 62 H (35-45) mmHg ABG pO2 67 L (83-108) mmHg ABG HCO3 32 H (21-25) mmol/L ABG Total CO2 34 H (19-24) mmol/L ABG O2 Saturation 93.1 L (94-97) % BUN (9-20) mg/dL Creatinine (0.66-1.25) mg/dL Glucose (74-99) mg/dL POC Glucose (mg/dL) 108 H (75-99) mg/dL Plasma Lactic Acid Lucio (0.7-2.0) mmol/L Phosphorus (2.5-4.5) mg/dL AST (17-59) U/L Alkaline Phosphatase (38-126) U/L Albumin (3.5-5.0) g/dL 08/14/18 08/14/18 08/14/18 Range/Units 01:53 01:53 05:51 RBC (4.30-5.90) m/uL Hgb (13.0-17.5) gm/dL Hct (39.0-53.0) % MCV (80.0-100.0) fL MCHC (31.0-37.0) g/dL RDW (11.5-15.5) % Plt Count (150-450) k/uL Lymphocytes # (1.0-4.8) k/uL Lymphocytes # (Manual) (1.0-4.8) k/uL Nucleated RBCs (0-0) /100 WBC ABG pH (7.35-7.45) ABG pCO2 (35-45) mmHg ABG pO2 (83-108) mmHg ABG HCO3 (21-25) mmol/L ABG Total CO2 (19-24) mmol/L ABG O2 Saturation (94-97) % BUN (9-20) mg/dL Creatinine 2.05 H (0.66-1.25) mg/dL Glucose 113 H (74-99) mg/dL POC Glucose (mg/dL) (75-99) mg/dL Plasma Lactic Acid Lucio 2.4 H* 2.1 H* (0.7-2.0) mmol/L Phosphorus 4.7 H (2.5-4.5) mg/dL AST 94 H (17-59) U/L Alkaline Phosphatase 252 H (38-126) U/L Albumin 2.5 L (3.5-5.0) g/dL 08/14/18 08/14/18 08/14/18 Range/Units 07:55 07:55 12:18 RBC 2.99 L (4.30-5.90) m/uL Hgb 9.0 L (13.0-17.5) gm/dL Hct 31.1 L (39.0-53.0) % MCV 104.1 H (80.0-100.0) fL MCHC 28.9 L (31.0-37.0) g/dL RDW 19.5 H (11.5-15.5) % Plt Count 74 L (150-450) k/uL Lymphocytes # 0.8 L (1.0-4.8) k/uL Lymphocytes # (Manual) (1.0-4.8) k/uL Nucleated RBCs (0-0) /100 WBC ABG pH (7.35-7.45) ABG pCO2 (35-45) mmHg ABG pO2 (83-108) mmHg ABG HCO3 (21-25) mmol/L ABG Total CO2 (19-24) mmol/L ABG O2 Saturation (94-97) % BUN 21 H (9-20) mg/dL Creatinine 2.16 H (0.66-1.25) mg/dL Glucose 103 H (74-99) mg/dL POC Glucose (mg/dL) 111 H (75-99) mg/dL Plasma Lactic Acid Lucio (0.7-2.0) mmol/L Phosphorus 5.0 H (2.5-4.5) mg/dL AST (17-59) U/L Alkaline Phosphatase (38-126) U/L Albumin (3.5-5.0) g/dL Assessment and Plan Assessment: - Acute encephalopathy need to rule out the cause - Possible sepsis due to cellulitis in the lower extremities. - Hypertension - Acute respiratory failure - History of end-stage renal disease on dialysis - Anemia - History of diabetes mellitus - History of hypertension - Hyperlipidemia - History of GI bleed and esophageal paresis status post banding Plan - Patient was admitted to ICU - Discussed with the nephew regarding his grave prognosis and also the new computed tomography scan finding of possible hepatocellular carcinoma and also up pulmonary metastases. Discussed with him about his wishes as to how we wish to be treated in this situation. Nephew is to talk with the rest of the family members and let is no decision - Depending on what family decides we will discuss with the family and the nephew about a possible hospice consult which was also recommended by pulmonology - For now we'll continue the antibiotics - We'll consult infectious disease for their recommendations - Nephrology on board - Continue rest of the medical care as of now - DVT and GI prophylaxis - We will also order for lab work in the morning - Expected length of stay more than 2 midnights - Patient is DO NOT RESUSCITATE Time with Patient: Greater than 30
[2018-08-14 17:15] LABS: Amorphous Sediment,Urine Rare /hpf; Appearance,Urine Turbid (Clear); Bilirubin,Urine 1+ (Negative); Blood,Urine Large (Negative); Color,Urine Red; Glucose,Urine (UA) Negative (Negative); Hyaline Casts,Urine 31 /lpf (0-2); Ketones,Urine Negative (Negative); Leukocyte Esterase,Urine Moderate (Negative); Mucus,Urine Rare /hpf; Nitrite,Urine Negative (Negative); Protein,Urine 2+ (Negative); RBC,Urine 99 /hpf (0-5); Specific Gravity,Urine 1.024 (1.001-1.035); Urobilinogen,Urine <2.0 mg/dL (<2.0); WBC,Urine 28 /hpf (0-5)
[2018-08-14 17:50] LABS: Glucose,Whole Blood 136 mg/dL (75-99)
[2018-08-14 19:27] LABS: Hemoglobin A1C 4.8 % (4.0-6.0)
[2018-08-15 00:17] LABS: Glucose,Whole Blood 72 mg/dL (75-99)
[2018-08-15 03:21] LABS: Glucose,Whole Blood 71 mg/dL (75-99)
--- NOTE | 2018-08-15 03:22 | CONS ---
CONSULTATION DATE OF SERVICE: 08/14/2018. REASON FOR CONSULTATION: Bilateral lower extremity wound cellulitis and a sacral pressure ulcer. HISTORY OF PRESENT ILLNESS: The patient is a 72-year-old male with a past medical history significant for end-stage renal disease on hemodialysis right subclavian [id number]. The patient apparently did have a stage III wound to the left hip area that was being treated with wound VAC. Apparently for 2 weeks as per the nurse's report. However when the dressing was removed today, no wound was noticed. The patient apparently was taken to the [facility] for evaluation of mental status changes and fever with elevated ammonia levels. The patient subsequently was transferred to the [facility] for further evaluation of fever. The patient was on the medical floor. The patient did develop respiratory distress and hypertension. A-Team was called and the patient was subsequently transferred to the ICU. The patient has been started on a BiPAP and a fluid bolus. Currently not on any pressor support. He was noticed to have multiple wounds to the lower extremities. possible cellulitis. The patient was started on Unasyn. Infectious disease was consulted for further recommendation of antibiotic therapy. Most of the information has been obtained from prior review of the chart and talking to the nursing staff. The patient currently on a BiPAP and unable to provide any history. Since the patient has been admitted in the hospital, no fever has been recorded. The patient's white count has been normal at 4.8 and 4.3. Did have a UA that is positive. However, the patient is a dialysis patient and hardly makes any urine. REVIEW OF SYSTEMS: Could not be reliably obtained though the positive points have been mentioned in HPI. PAST MEDICAL HISTORY: Diabetes mellitus, CAD, gastroesophageal reflux disease, GI bleed, hypertension, hyperlipidemia, osteoarthritis, history of esophageal varices. PAST SURGERY HISTORY: Cholecystectomy, heart catheterization, tonsillectomy. SOCIAL HISTORY: No history of smoking, drinking or drug use. FAMILY HISTORY: Mother with history of hypertension and PR. Father with history of hypertension and PR as well. ALLERGIES: No known drug allergies. MEDICATION: The patient is currently on Unasyn 3 g q.6 hours, DuoNeb, Lovenox, lactulose, Narcan and Protonix. PHYSICAL EXAMINATION: Blood pressure is 93/59 with a pulse of 57, temp is 97.3. He is 94% on 50% FIO2. General description is an elderly male lying in bed in no distress. No tachypnea or accessory muscles of respiration use. HEENT: Shows pallor. No scleral icterus. Oral mucosal membranes are dry. No pharyngeal erythema or thrush. Neck: Trachea central. No thyromegaly. Lungs unlabored breathing with decreased breath sounds in the bases. No wheeze or crackles. Heart S1, S2. Regular rate and rhythm. ABDOMEN: Soft, no tenderness. No guarding or rigidity. Extremities: The patient did have some superficial laceration of the wound. No significant slough tissue. No swelling or redness. No foul smell or drainage. He also has a stage II pressure ulcer, sacral area with no significant slough tissue. Neurological: The patient is currently awake, slightly lethargic. . LABS: Hemoglobin 9, white count 4.3, BUN of 21, creatinine 2.16. Electrolytes have been normal. UA was positive. DIAGNOSTIC IMPRESSION AND PLAN: Patient currently admitted to the hospital with mental status changes. The patient also has a lower extremity wound with secondary cellulitis urinary tract infection in this patient who did have a CT of the chest that did not show any pneumonia however did show suspected cirrhotic liver with mass and carcinoma with possible diffuse metastatic disease. PLAN: 1. Local wound care with Aquacel Silver dressing followed by Ronaldo wrap to keep the swelling down. 2. Unasyn to continue, however, dose to be adjusted to 2 g q.12 because of his kidney function. 3. We will follow up on his clinical condition and culture to further adjust medication if needed. Thank you for this consultation. We will follow this patient along with you. MMODL / IJN: [id number] /
[2018-08-15] MEDS: IPRATROPIUM-ALBUTEROL 3 ML NEB INHALATION SCH ×6 (03:24→23:25)
[2018-08-15] MEDS ORDERED: DEXTROSE 50%-WATER 50 ML SYRINGE IVP STA (03:26)
[2018-08-15] MEDS: SODIUM CHLORIDE 0.9% 1,000 ML IV SCH ×2 (03:34→09:52)
[2018-08-15 04:07] LABS: Glucose,Whole Blood 150 mg/dL (75-99)
[2018-08-15 05:51] LABS: Anisocytosis Slight; Basophils % (A) 1 %; Eosinophils # (A) 0.2 k/uL (0-0.7); Eosinophils % (A) 4 %; HCT 31.5 % (39.0-53.0); HGB 9.2 gm/dL (13.0-17.5); Hypochromasia Marked; Lymphocytes % (A) 23 %; MCH 30.7 pg (25.0-35.0); MCHC 29.3 g/dL (31.0-37.0); MCV 105.1 fL (80.0-100.0); Mean Platelet Volume 7.1; Monocytes # (A) 0.4 k/uL (0-1.0); Monocytes % (A) 8 %; Neutrophils # (A) 2.7 k/uL (1.3-7.7); Neutrophils % (A) 63 %; RDW 19.8 % (11.5-15.5); WBC 4.2 k/uL (3.8-10.6)
[2018-08-15] MEDS: AMPICILLIN-SULBACTAM 3 GM in SODIUM CHLORIDE 0.9% 100 ML IVPB SCH ×3 (05:56→16:46)
[2018-08-15 06:01] LABS: Calcium 9.4 mg/dL (8.4-10.2); Phosphorus 5.5 mg/dL (2.5-4.5); Potassium 3.4 mmol/L (3.5-5.1)
[2018-08-15 06:07] LABS: Glucose,Whole Blood 81 mg/dL (75-99)
[2018-08-15 06:14] LABS: Macrocytosis Marked; Platelet Count 65 k/uL (150-450)
[2018-08-15 07:09] LABS: Polychromasia Present; Target Cells Present
[2018-08-15] MEDS: LACTULOSE 200 GM/300 ML (FROM 1/2 GAL JUG) RECTAL SCH (07:10)
--- NOTE | 2018-08-15 07:21 | XR ---
EXAMINATION TYPE: XR chest 1V DATE OF EXAM: 08/15/2018 HISTORY: Shortness of breath. COMPARISON: The second 19 TECHNIQUE: Single view of the chest is submitted. FINDINGS: Demonstrated are scattered senescent parenchymal change. Diffuse reticulonodular pattern persists. Stable right lower lobe atelectasis or pneumonia. Central v enous line unchanged in position. The heart is stable. Hilar and mediastinal structures are within normal limits. Degenerative changes are seen of the dorsal spine. IMPRESSION: 1. Stable chest.
--- NOTE | 2018-08-15 08:30 | P.PN ---
Subjective Progress Note Date: 08/15/18 Principal diagnosis: Altered mental status, lactic acidosis, suspect sepsis, acute hypoxic/ hypercapnic respiratory failure, hepatocellular carcinoma with metastases This is a 72-year-old gentleman who follows with Dr. Hayden as his primary care physician. He has a history of end-stage renal disease receiving hemodialysis on Thursday, previous alcohol abuse, previous GI bleeding, hypertension, hyperlipidemia, diabetes mellitus. He was transferred here to the regular medical floor from [facility] yesterday due to altered mental status. He was found to have a fever of unknown origin and elevated ammonia levels. He subsequently developed hypotension and respiratory distress and an A team was called and he was transferred here to the intensive care unit. He is seen today in consultation. He is currently on BiPAP 14/5 and 50% FiO2 to maintain O2 saturations in the 90s. He is currently quite weak and obtunded. Difficult to arouse. He currently has a 0.9 normal saline at 100 MLS per hour. No urine output currently. Chest x-ray shows evidence of cardiomegaly with moderate size right pleural effusion and associated right basilar atelectasis and/or infiltrate. Reticular nodular opacities bilaterally possibly reflecting diffuse edema and/or infiltrates but nodularity is concerning. Metastatic disease and septic emboli air in the differential. White count 4.8. Hemoglobin 9.2. Platelet count 100,000 and creatinine 2.05. Initial lactic acid 2.4 currently 2.1. Current ammonia level 27. He did receive lactulose. He does have multiple open wounds on the lower extremities and sacral area. He'll be initiated on Unasyn. On 08/15/2018 patient seen in follow-up in the intensive care unit. He is awake and alert, oriented 2, to person and place, extremely weak, he had been on BiPAP with pressures of 14 and 5 and FiO2 of 50%, and he has been given a trial of nasal cannula, and is currently on 15 L high flow. No fever, no chills , hemodynamically patient is stable, IV fluids 0.9 normal saline at a rate of 100 ML per hour, no other drips. CT chest was done yesterday, and showed a spec cirrhotic liver with suspicious right hepatic dome mass, possible hepatocellular carcinoma, hepatosplenomegaly with mild surrounding ascites. There were scattered bilateral pulmonary nodules suspicious for diffuse metastatic disease, small right pleural fluid collection. Patient had elevated ammonia, and bilateral lower extremity wound infections. Blood and urine cultures show no growth to date. Final cultures are pending, patient was fluid resuscitated, his blood pressures have improved, today's lab work shows white blood cell count of 4.2, hemoglobin of 9.2, serum sodium is 138, potassium is 3.4, chloride is 104, B1 is 27 and creatinine is 2.54. Nephrology is following , hemodialysis had been held in view of patient's hypotension, patient is on Midrin. And his extremely weak, has a weak congested nonproductive cough. Lung sounds are positive for diffuse rhonchi. Abdomen is obese, but nontender and soft. There is lower extremity edema, lower extremities are wrapped with dressings. ID service is following, and current antibiotic coverage includes Unasyn. We'll status has been discussed with the patient, patient's CODE STATUS is DO NOT RESUSCITATE. Objective - Vital Signs Vital signs: Vital Signs Temp 97.3 F L 08/15/18 04:00 Pulse 63 08/15/18 07:30 Resp 15 08/15/18 07:00 BP 117/55 08/15/18 07:00 Pulse Ox 94 L 08/15/18 07:00 Intake & Output 08/14/18 08/15/18 08/15/18 18:59 06:59 18:59 Intake Total 1400 1400 100 Output Total 21 39 0 Balance 1379 1361 100 Weight 140.6 kg Intake: IV 1200 1400 100 Ampicillin-Sulbactam 3 gm 100 200 In Sodium Chloride 0.9% 100 ml @ 200 mls/hr IVPB Q6HR DANIEL Rx#:[id number] Sodium Chloride 0.9% 1, 1100 1200 100 000 ml @ 100 mls/hr IV . Q10H DANIEL Rx#:[id number] Intake, IV Titration 200 Amount Sodium Chloride 0.9% 1, 200 000 ml @ 100 mls/hr IV . Q10H STA Rx#:[id number] Output: Urine 21 39 0 Other: Voiding Method Indwelling Catheter Indwelling Catheter # Bowel Movements 1 - Exam GENERAL EXAM: Alert, 72-year-old obese white male, and 15 L per high flow nasal cannula comfortable in no apparent distress. HEAD: Normocephalic/atraumatic. EYES: Normal reaction of pupils, equal size. Conjunctiva pink, sclera white. NOSE: Clear with pink turbinates. THROAT: No erythema or exudates. NECK: No masses, no JVD, no thyroid enlargement, no adenopathy. CHEST: No chest wall deformity. Symmetrical expansion. LUNGS: Equal air entry with diffuse rhonchi, patient has a weak nonproductive congested cough CVS: Regular rate and rhythm, normal S1 and S2, no gallops, no murmurs, no rubs ABDOMEN: Soft, nontender. No hepatosplenomegaly, normal bowel sounds, no guarding or rigidity. EXTREMITIES: No clubbing, 2+ lower extremity edema, bilateral lower extremity wounds, covered with dressings, no cyanosis, 2+ pulses and upper and lower extremities. MUSCULOSKELETAL: Muscle strength and tone normal. SPINE: No scoliosis or deformity SKIN: No rashes CENTRAL NERVOUS SYSTEM: Alert and oriented -2. No focal deficits, tone is normal in all 4 extremities. - Labs CBC & Chem 7: 08/15/18 05:34 08/15/18 05:34 Labs: Abnormal Lab Results - Last 24 Hours (Table) 08/14/18 08/14/18 08/14/18 Range/Units 07:55 07:55 12:18 RBC 2.99 L (4.30-5.90) m/uL Hgb 9.0 L (13.0-17.5) gm/dL Hct 31.1 L (39.0-53.0) % MCV 104.1 H (80.0-100.0) fL MCHC 28.9 L (31.0-37.0) g/dL RDW 19.5 H (11.5-15.5) % Plt Count 74 L (150-450) k/uL Lymphocytes # 0.8 L (1.0-4.8) k/uL Potassium (3.5-5.1) mmol/L BUN 21 H (9-20) mg/dL Creatinine 2.16 H (0.66-1.25) mg/dL Glucose 103 H (74-99) mg/dL POC Glucose (mg/dL) 111 H (75-99) mg/dL Phosphorus 5.0 H (2.5-4.5) mg/dL Ammonia (<30) umol/L Urine Protein (Negative) Urine Blood (Negative) Urine Bilirubin (Negative) Ur Leukocyte Esterase (Negative) Urine RBC (0-5) /hpf Urine WBC (0-5) /hpf Amorphous Sediment (None) /hpf Hyaline Casts (0-2) /lpf Urine Mucus (None) /hpf 08/14/18 08/14/18 08/14/18 Range/Units 16:48 17:22 18:35 RBC (4.30-5.90) m/uL Hgb (13.0-17.5) gm/dL Hct (39.0-53.0) % MCV (80.0-100.0) fL MCHC (31.0-37.0) g/dL RDW (11.5-15.5) % Plt Count (150-450) k/uL Lymphocytes # (1.0-4.8) k/uL Potassium (3.5-5.1) mmol/L BUN (9-20) mg/dL Creatinine (0.66-1.25) mg/dL Glucose (74-99) mg/dL POC Glucose (mg/dL) 136 H (75-99) mg/dL Phosphorus (2.5-4.5) mg/dL Ammonia 46 H (<30) umol/L Urine Protein 2+ H (Negative) Urine Blood Large H (Negative) Urine Bilirubin 1+ H (Negative) Ur Leukocyte Esterase Moderate H (Negative) Urine RBC 99 H (0-5) /hpf Urine WBC 28 H (0-5) /hpf Amorphous Sediment Rare H (None) /hpf Hyaline Casts 31 H (0-2) /lpf Urine Mucus Rare H (None) /hpf 08/15/18 08/15/18 08/15/18 Range/Units 00:05 03:10 03:55 RBC (4.30-5.90) m/uL Hgb (13.0-17.5) gm/dL Hct (39.0-53.0) % MCV (80.0-100.0) fL MCHC (31.0-37.0) g/dL RDW (11.5-15.5) % Plt Count (150-450) k/uL Lymphocytes # (1.0-4.8) k/uL Potassium (3.5-5.1) mmol/L BUN (9-20) mg/dL Creatinine (0.66-1.25) mg/dL Glucose (74-99) mg/dL POC Glucose (mg/dL) 72 L 71 L 150 H (75-99) mg/dL Phosphorus (2.5-4.5) mg/dL Ammonia (<30) umol/L Urine Protein (Negative) Urine Blood (Negative) Urine Bilirubin (Negative) Ur Leukocyte Esterase (Negative) Urine RBC (0-5) /hpf Urine WBC (0-5) /hpf Amorphous Sediment (None) /hpf Hyaline Casts (0-2) /lpf Urine Mucus (None) /hpf 08/15/18 08/15/18 08/15/18 Range/Units 05:34 05:34 05:34 RBC 3.00 L (4.30-5.90) m/uL Hgb 9.2 L (13.0-17.5) gm/dL Hct 31.5 L (39.0-53.0) % MCV 105.1 H (80.0-100.0) fL MCHC 29.3 L (31.0-37.0) g/dL RDW 19.8 H (11.5-15.5) % Plt Count 65 L (150-450) k/uL Lymphocytes # (1.0-4.8) k/uL Potassium 3.4 L (3.5-5.1) mmol/L BUN 27 H (9-20) mg/dL Creatinine 2.54 H (0.66-1.25) mg/dL Glucose (74-99) mg/dL POC Glucose (mg/dL) (75-99) mg/dL Phosphorus 5.5 H (2.5-4.5) mg/dL Ammonia 39 H (<30) umol/L Urine Protein (Negative) Urine Blood (Negative) Urine Bilirubin (Negative) Ur Leukocyte Esterase (Negative) Urine RBC (0-5) /hpf Urine WBC (0-5) /hpf Amorphous Sediment (None) /hpf Hyaline Casts (0-2) /lpf Urine Mucus (None) /hpf Microbiology - Last 24 Hours (Table) 08/14/18 01:53 Blood Culture - Preliminary Blood No Growth after 24 hours 08/14/18 16:48 Urine Culture - Preliminary Urine,Catheterized Assessment and Plan Plan: #1 Altered mental status of unclear etiology. Suspect metabolic encephalopathy secondary to suspected sepsis. The source could be related to wounds, urinary tract infection #2 Lactic acidosis contrary to suspected sepsis possibly cellulitis from the lower extremities and coccyx area wounds. #3 Acute hypoxic/hypercapnic respiratory failure secondary to fluid volume overload and possible septic emboli, right pleural effusion with infiltrate. Currently requiring BiPAP support. #4 Cirrhotic of liver with suspicious right hepatic dome mass, suspected hepatocellular carcinoma, with scattered bilateral pulmonary nodules suspicious for diffuse metastatic disease #5 Morbid obesity. #6 Previous history of alcoholism. #7 Anemia secondary to above. #8 Thrombocytopenia secondary to above. #9 Acute on chronic renal failure with end-stage renal disease receiving renal replacement therapy with hemodialysis Thursday. #10 Diabetes mellitus #11 Hypertension, history of. #12 Hyperlipidemia. #13 History of GI bleed and esophageal varices status post banding. Plan: Continue current abiotic coverage, patient was given a trial of nasal cannula, tolerating it well so far, extremely weak, is unable to clear secretions. Continue with nebulized bronchodilators, CT of the chest showed possibility of hepatocellular carcinoma with diffuse metastatic disease to the lungs. Overall patient is quite debilitated, with multiple comorbidities, as well as acute medical problems. Hemodynamically he is more stable, nephrology is on the case , infectious disease following. Overall prognosis is poor, patient's CODE STATUS is DO NOT RESUSCITATE. We'll continue with supportive adequate treatment I performed a history & physical examination of the patient and discussed their management with my nurse practitioner, Erica Wyman. I reviewed the nurse practitioner's note and agree with the documented findings and plan of care. Lung sounds are positive for diffuse rhonchi. The findings and the impression was discussed with the patient. I attest to the documentation by the nurse practitioner. Time with Patient: Greater than 30
[2018-08-15] MEDS: PANTOPRAZOLE 40 MG/10 ML VIAL IV SCH (08:38)
[2018-08-15] MEDS: ACETAMINOPHEN TAB 325 MG TAB PO PRN ×2 (10:21→22:01)
--- NOTE | 2018-08-15 10:27 | P.PN ---
Subjective Progress Note Date: 08/15/18 Seen and examined for the follow-up of HERMELINDO on hemodialysis. Admitted to the hospital with altered mental status from [facility]. He was on BiPAP yesterday today off BiPAP but high flow oxygen. Workup including CAT scan of the abdomen and chest showed suspicious for hepatocellular carcinoma with metastases to the lung. Also on antibiotic for cellulitis. Blood pressure is still soft. Oliguric with 15 ML's of urine output in the last 24 hours. Objective - Vital Signs Vital signs: Vital Signs Temp 97.6 F 08/15/18 08:00 Pulse 66 08/15/18 08:00 Resp 21 08/15/18 08:00 BP 126/63 08/15/18 08:00 Pulse Ox 93 L 08/15/18 08:00 Intake & Output 08/14/18 08/15/18 08/15/18 18:59 06:59 18:59 Intake Total 1400 1400 200 Output Total 21 39 10 Balance 1379 1361 190 Weight 140.6 kg Intake: IV 1200 1400 200 Ampicillin-Sulbactam 3 gm 100 200 In Sodium Chloride 0.9% 100 ml @ 200 mls/hr IVPB Q6HR DANIEL Rx#:[id number] Sodium Chloride 0.9% 1, 1100 1200 200 000 ml @ 100 mls/hr IV . Q10H DANIEL Rx#:[id number] Intake, IV Titration 200 Amount Sodium Chloride 0.9% 1, 200 000 ml @ 100 mls/hr IV . Q10H STA Rx#:[id number] Output: Urine 21 39 10 Other: Voiding Method Indwelling Catheter Indwelling Catheter # Bowel Movements 1 - Exam No acute distress S1-S2 heard Right jugular permacath Abdomen distended Edema. - Labs CBC & Chem 7: 08/15/18 05:34 08/15/18 05:34 Labs: Abnormal Lab Results - Last 24 Hours (Table) 08/14/18 08/14/18 08/14/18 Range/Units 07:55 12:18 16:48 RBC 2.99 L (4.30-5.90) m/uL Hgb 9.0 L (13.0-17.5) gm/dL Hct 31.1 L (39.0-53.0) % MCV 104.1 H (80.0-100.0) fL MCHC 28.9 L (31.0-37.0) g/dL RDW 19.5 H (11.5-15.5) % Plt Count 74 L (150-450) k/uL Lymphocytes # 0.8 L (1.0-4.8) k/uL Potassium (3.5-5.1) mmol/L BUN (9-20) mg/dL Creatinine (0.66-1.25) mg/dL POC Glucose (mg/dL) 111 H (75-99) mg/dL Phosphorus (2.5-4.5) mg/dL Ammonia (<30) umol/L Urine Protein 2+ H (Negative) Urine Blood Large H (Negative) Urine Bilirubin 1+ H (Negative) Ur Leukocyte Esterase Moderate H (Negative) Urine RBC 99 H (0-5) /hpf Urine WBC 28 H (0-5) /hpf Amorphous Sediment Rare H (None) /hpf Hyaline Casts 31 H (0-2) /lpf Urine Mucus Rare H (None) /hpf 08/14/18 08/14/18 08/15/18 Range/Units 17:22 18:35 00:05 RBC (4.30-5.90) m/uL Hgb (13.0-17.5) gm/dL Hct (39.0-53.0) % MCV (80.0-100.0) fL MCHC (31.0-37.0) g/dL RDW (11.5-15.5) % Plt Count (150-450) k/uL Lymphocytes # (1.0-4.8) k/uL Potassium (3.5-5.1) mmol/L BUN (9-20) mg/dL Creatinine (0.66-1.25) mg/dL POC Glucose (mg/dL) 136 H 72 L (75-99) mg/dL Phosphorus (2.5-4.5) mg/dL Ammonia 46 H (<30) umol/L Urine Protein (Negative) Urine Blood (Negative) Urine Bilirubin (Negative) Ur Leukocyte Esterase (Negative) Urine RBC (0-5) /hpf Urine WBC (0-5) /hpf Amorphous Sediment (None) /hpf Hyaline Casts (0-2) /lpf Urine Mucus (None) /hpf 08/15/18 08/15/18 08/15/18 Range/Units 03:10 03:55 05:34 RBC 3.00 L (4.30-5.90) m/uL Hgb 9.2 L (13.0-17.5) gm/dL Hct 31.5 L (39.0-53.0) % MCV 105.1 H (80.0-100.0) fL MCHC 29.3 L (31.0-37.0) g/dL RDW 19.8 H (11.5-15.5) % Plt Count 65 L (150-450) k/uL Lymphocytes # (1.0-4.8) k/uL Potassium (3.5-5.1) mmol/L BUN (9-20) mg/dL Creatinine (0.66-1.25) mg/dL POC Glucose (mg/dL) 71 L 150 H (75-99) mg/dL Phosphorus (2.5-4.5) mg/dL Ammonia (<30) umol/L Urine Protein (Negative) Urine Blood (Negative) Urine Bilirubin (Negative) Ur Leukocyte Esterase (Negative) Urine RBC (0-5) /hpf Urine WBC (0-5) /hpf Amorphous Sediment (None) /hpf Hyaline Casts (0-2) /lpf Urine Mucus (None) /hpf 08/15/18 08/15/18 Range/Units 05:34 05:34 RBC (4.30-5.90) m/uL Hgb (13.0-17.5) gm/dL Hct (39.0-53.0) % MCV (80.0-100.0) fL MCHC (31.0-37.0) g/dL RDW (11.5-15.5) % Plt Count (150-450) k/uL Lymphocytes # (1.0-4.8) k/uL Potassium 3.4 L (3.5-5.1) mmol/L BUN 27 H (9-20) mg/dL Creatinine 2.54 H (0.66-1.25) mg/dL POC Glucose (mg/dL) (75-99) mg/dL Phosphorus 5.5 H (2.5-4.5) mg/dL Ammonia 39 H (<30) umol/L Urine Protein (Negative) Urine Blood (Negative) Urine Bilirubin (Negative) Ur Leukocyte Esterase (Negative) Urine RBC (0-5) /hpf Urine WBC (0-5) /hpf Amorphous Sediment (None) /hpf Hyaline Casts (0-2) /lpf Urine Mucus (None) /hpf Microbiology - Last 24 Hours (Table) 08/14/18 01:53 Blood Culture - Preliminary Blood No Growth after 24 hours 08/14/18 16:48 Urine Culture - Preliminary Urine,Catheterized Assessment and Plan Assessment: #1 encephalopathy suspected sepsis and hypotension. #2 HERMELINDO on HD, at [facility] unit under the care of Dr. Esposito. #3 severe sepsis with marginal blood pressures. #4 pleural effusion #5 CT scan suspicious for hepatocellular carcinoma with lung metastases #6 anemia multifactorial Plan: #1 no acute indication for hemodialysis today. Continue with IV fluids and decrease the rate to 50 ML's per hour. #2 antibiotics per infectious disease #3 restart midodrine 10 mg 3 times a day for hemodynamic support #4 consider oncology evaluation.
[2018-08-15] MEDS: MIDODRINE 5 MG TAB PO SCH ×3 (11:56→16:47)
[2018-08-15 12:02] LABS: Glucose,Whole Blood 82 mg/dL (75-99)
--- NOTE | 2018-08-15 14:01 | P.PN ---
Subjective Progress Note Date: 08/15/18 72-year-old gentleman with a past medical history significant for end-stage renal disease on dialysis comes in for altered mental status 08/15/2018 Patient was more awake and oriented today and he was interacting much better. He says that he feels better. He does not complain of any chest pain racing heart, no cough no shortness of breath Does complain of abdominal pain in the right upper quadrant. Objective - Vital Signs Vital signs: Vital Signs Temp 97.6 F 08/15/18 08:00 Pulse 68 08/15/18 11:11 Resp 19 08/15/18 11:00 BP 114/90 08/15/18 11:00 Pulse Ox 96 08/15/18 11:00 Intake & Output 08/14/18 08/15/18 08/15/18 18:59 06:59 18:59 Intake Total 1400 1400 400 Output Total 21 39 10 Balance 1379 1361 390 Weight 140.6 kg Intake: IV 1200 1400 400 Ampicillin-Sulbactam 3 gm 100 200 In Sodium Chloride 0.9% 100 ml @ 200 mls/hr IVPB Q6HR DANIEL Rx#:[id number] Sodium Chloride 0.9% 1, 1100 1200 400 000 ml @ 100 mls/hr IV . Q10H DANIEL Rx#:[id number] Intake, IV Titration 200 Amount Sodium Chloride 0.9% 1, 200 000 ml @ 100 mls/hr IV . Q10H STA Rx#:[id number] Output: Urine 21 39 10 Other: Voiding Method Indwelling Catheter Indwelling Catheter Indwelling Catheter # Bowel Movements 1 - Exam On exam, alert and oriented x3. HEENT: Conjunctivae normal. eyes normal. NECK: No JVD. No thyroid enlargement. No LNs CARDIOVASCULAR: S1, S2 muffled. No murmur RESPIRATION: Breath sounds diminished in the bases. No rhonchi or crackles. No bronchial breathing. ABDOMEN: Soft, tenderness in the right upper quadrant . No guarding. LEGS: No edema. no swelling NERVOUS SYSTEM: Cranial N 2-12 grossly normal. Moves all 4 limbs. No focal deficits. No sensory deficit. No signs of cerebellar dysfucntion. Skin: no ulcer no rash Joints: No active swelling. No inflammation. Lymphatic system. No LN neck axilla or groin. - Labs CBC & Chem 7: 08/15/18 05:34 08/15/18 05:34 Labs: Abnormal Lab Results - Last 24 Hours (Table) 08/14/18 08/14/18 08/14/18 Range/Units 16:48 17:22 18:35 RBC (4.30-5.90) m/uL Hgb (13.0-17.5) gm/dL Hct (39.0-53.0) % MCV (80.0-100.0) fL MCHC (31.0-37.0) g/dL RDW (11.5-15.5) % Plt Count (150-450) k/uL Potassium (3.5-5.1) mmol/L BUN (9-20) mg/dL Creatinine (0.66-1.25) mg/dL POC Glucose (mg/dL) 136 H (75-99) mg/dL Phosphorus (2.5-4.5) mg/dL Ammonia 46 H (<30) umol/L Urine Protein 2+ H (Negative) Urine Blood Large H (Negative) Urine Bilirubin 1+ H (Negative) Ur Leukocyte Esterase Moderate H (Negative) Urine RBC 99 H (0-5) /hpf Urine WBC 28 H (0-5) /hpf Amorphous Sediment Rare H (None) /hpf Hyaline Casts 31 H (0-2) /lpf Urine Mucus Rare H (None) /hpf 08/15/18 08/15/18 08/15/18 Range/Units 00:05 03:10 03:55 RBC (4.30-5.90) m/uL Hgb (13.0-17.5) gm/dL Hct (39.0-53.0) % MCV (80.0-100.0) fL MCHC (31.0-37.0) g/dL RDW (11.5-15.5) % Plt Count (150-450) k/uL Potassium (3.5-5.1) mmol/L BUN (9-20) mg/dL Creatinine (0.66-1.25) mg/dL POC Glucose (mg/dL) 72 L 71 L 150 H (75-99) mg/dL Phosphorus (2.5-4.5) mg/dL Ammonia (<30) umol/L Urine Protein (Negative) Urine Blood (Negative) Urine Bilirubin (Negative) Ur Leukocyte Esterase (Negative) Urine RBC (0-5) /hpf Urine WBC (0-5) /hpf Amorphous Sediment (None) /hpf Hyaline Casts (0-2) /lpf Urine Mucus (None) /hpf 08/15/18 08/15/18 08/15/18 Range/Units 05:34 05:34 05:34 RBC 3.00 L (4.30-5.90) m/uL Hgb 9.2 L (13.0-17.5) gm/dL Hct 31.5 L (39.0-53.0) % MCV 105.1 H (80.0-100.0) fL MCHC 29.3 L (31.0-37.0) g/dL RDW 19.8 H (11.5-15.5) % Plt Count 65 L (150-450) k/uL Potassium 3.4 L (3.5-5.1) mmol/L BUN 27 H (9-20) mg/dL Creatinine 2.54 H (0.66-1.25) mg/dL POC Glucose (mg/dL) (75-99) mg/dL Phosphorus 5.5 H (2.5-4.5) mg/dL Ammonia 39 H (<30) umol/L Urine Protein (Negative) Urine Blood (Negative) Urine Bilirubin (Negative) Ur Leukocyte Esterase (Negative) Urine RBC (0-5) /hpf Urine WBC (0-5) /hpf Amorphous Sediment (None) /hpf Hyaline Casts (0-2) /lpf Urine Mucus (None) /hpf Microbiology - Last 24 Hours (Table) 08/14/18 01:53 Blood Culture - Preliminary Blood No Growth after 24 hours 08/14/18 16:48 Urine Culture - Preliminary Urine,Catheterized Assessment and Plan Assessment: - Acute encephalopathy need to rule out the cause- improved - Possible sepsis due to cellulitis in the lower extremities. - Hypertension - Acute respiratory failure - History of end-stage renal disease on dialysis - Anemia - History of diabetes mellitus - History of hypertension - Hyperlipidemia - History of GI bleed and esophageal paresis status post banding Plan - Patient was admitted to ICU - Patient much more alert oriented today - Continue antivirals as per pulmonology and ID recommendations - Nephrology on board for ESRD. Midodrine added by nephrology - Computed tomography scan of the chest done yesterday showed a similar liver mass and lung metastases. Patient wants to pursue further diagnosis and management of this. We'll consult Dr. Saenz - DVT and GI prophylaxis - We'll order for lab work in the morning - We'll continue to follow the patient Time with Patient: Greater than 30
[2018-08-15] MEDS: LACTULOSE 20 GM/30 ML CUP PO SCH ×2 (16:46→21:02)
[2018-08-15 17:23] LABS: Glucose,Whole Blood 152 mg/dL (75-99)
[2018-08-15] MEDS: INSULIN ASPART (NovoLOG) 100 UNIT/ML VIAL SQ SCH ×2 (17:45→21:01)
[2018-08-15 21:03] LABS: Glucose,Whole Blood 176 mg/dL (75-99)
--- NOTE | 2018-08-15 23:29 | PN ---
PROGRESS NOTE DATE OF SERVICE: 08/15/2018. REASON FOR FOLLOW UP: Wound and cellulitis with possible UTI. INTERVAL HISTORY: The patient is afebrile. He is more awake and oriented today. The patient is currently not requiring BiPAP and is on significant oxygen. Remains to be slightly lethargic, but did not produce significant . No nausea, no vomiting or diarrhea according to nursing staff. EXAMINATION: Blood pressure 124/58 with a pulse of 61, temperature 97.7. He is 94% on 7 liters nasal cannula. GENERAL DESCRIPTION: An elderly male lying in bed in no distress. RESPIRATORY SYSTEM: Unlabored breathing. Clear to auscultation anteriorly. HEART: S1, S2. Regular rate and rhythm. ABDOMEN: Soft, no tenderness. EXTREMITIES: No obvious drainage on the dressing. LABS: Hemoglobin 9.1, . BUN of 27, creatinine 0.54. DIAGNOSTIC IMPRESSION AND PLAN: Patient with bilateral lower extremity secondary cellulitis, patient is currently on Unasyn dose adjusted to kidney function every 12 hours. Local wound care with Aquacel Silver dressing and an Ronaldo wrap to keep the swelling down. Reevaluate the patient tomorrow. Continue supportive care. MMODL / IJN: [id number] /
[2018-08-16] MEDS: IPRATROPIUM-ALBUTEROL 3 ML NEB INHALATION SCH ×5 (03:24→20:43)
[2018-08-16] MEDS: SODIUM CHLORIDE 0.9% 1,000 ML IV SCH (03:56)
[2018-08-16 05:24] LABS: Anisocytosis Slight; HCT 30.9 % (39.0-53.0); HGB 9.2 gm/dL (13.0-17.5); Hypochromasia Marked; MCH 31.4 pg (25.0-35.0); MCHC 29.9 g/dL (31.0-37.0); MCV 105.2 fL (80.0-100.0); Macrocytosis Marked; Mean Platelet Volume 7.8; RBC 2.93 m/uL (4.30-5.90); RDW 19.6 % (11.5-15.5); WBC 4.8 k/uL (3.8-10.6)
[2018-08-16 05:28] LABS: Platelet Count 76 k/uL (150-450)
[2018-08-16 05:44] LABS: Calcium 9.7 mg/dL (8.4-10.2); Magnesium 2.2 mg/dL (1.6-2.3); Phosphorus 6.1 mg/dL (2.5-4.5); Potassium 3.5 mmol/L (3.5-5.1)
[2018-08-16 06:02] LABS: Band Neutrophils % 2 %; Eosinophils # (M) 0.58 k/uL (0-0.7); Lymphocytes # (M) 0.72 k/uL (1.0-4.8); Monocytes # (M) 0.48 k/uL (0-1.0); Myelocytes # (M) 0.05 k/uL (0); Myelocytes % 1 %; Neutrophils % (M) 61 %; Nucleated Red Blood Cells 0 /100 WBC (0-0); Total Cells Counted 200
[2018-08-16 07:15] LABS: Glucose,Whole Blood 83 mg/dL (75-99)
[2018-08-16] MEDS: INSULIN ASPART (NovoLOG) 100 UNIT/ML VIAL SQ SCH ×4 (08:01→21:45)
[2018-08-16] MEDS: AMPICILLIN-SULBACTAM 3 GM in SODIUM CHLORIDE 0.9% 100 ML IVPB SCH ×2 (08:06→21:42)
[2018-08-16] MEDS: MIDODRINE 5 MG TAB PO SCH ×3 (08:06→17:34)
[2018-08-16] MEDS: PANTOPRAZOLE 40 MG/10 ML VIAL IV SCH (08:09)
--- NOTE | 2018-08-16 09:02 | XR ---
EXAMINATION TYPE: XR chest 1V DATE OF EXAM: 08/16/2018 COMPARISON: 08/15/2018 HISTORY: Shortness of breath TECHNIQUE: Single frontal view of the chest is obtained. FINDINGS: Demonstrated are scattered senescent parenchymal change. Diffuse reticulonodular pattern p ersists. Stable right lower lobe atelectasis or pneumonia. Central venous line unchanged in position. The heart is stable. Hilar and mediastinal structures are within normal limits. Degenerative changes are seen of the dorsal spine. IMPRESSION: Stable right-sided consolidation and pleural effusion with diffuse interstitial pattern. Bilateral pulmonary nodules may represent interstitial pattern with small numerous pulmonary nodules .
[2018-08-16] MEDS: LACTULOSE 20 GM/30 ML CUP PO SCH ×3 (12:09→22:40)
[2018-08-16 12:11] LABS: Glucose,Whole Blood 90 mg/dL (75-99)
--- NOTE | 2018-08-16 15:30 | PN ---
PROGRESS NOTE Patient is seen for followup for hemodialysis dependent acute kidney injury. He is maintained on a Thursday, Thursday, Thursday schedule. Patient does not have much urine output. He is currently maintained on BiPAP. The Davies catheter was removed this morning. PHYSICAL EXAMINATION: This afternoon, blood pressure was 117/63, heart rate about 72 per minute. Patient is afebrile. Examination of the heart S1, S2. Examination of the lungs, bilateral breath sounds are heard. Decreased breath sounds bases. Abdomen is soft, nontender. Examination of the lower extremities shows significant edema with significant chronic skin changes. Bilateral extremities are wrapped. INCLUSION SPECIALIST examination, patient is lethargic. He has been moving all 4 extremities. LAB: Show sodium 138, potassium 3.5, chloride 105, BUN 30, serum creatinine 3.03, hemoglobin 9.2 g/per dL, phosphorus. 6.1.ASSESSMENT: 1. Hemodialysis dependent acute kidney injury. Will maintain patient on a Thursday, Thursday, Thursday schedule for dialysis. 2. Volume overload. Expect improvement with dialysis. Chest x-ray shows interstitial pattern which may be partly fluid and partly related to infection versus metastasis. 3. Liver mass suspicious for hepatocellular carcinoma with metastasis and diffuse metastatic disease. 4. Acute hypoxic hypercapnic respiratory failure, currently on BiPAP. 5. Previous history of gastroinsetinal bleed. 6. Lower extremity cellulitis, maintained on antibiotics. PLAN: Continue with midodrine. I will discontinue the IV fluids. We will plan for hemodialysis today. Repeat labs in a.m. Continue to encourage increased oral intake. MMODL / IJN: [id number] /
--- NOTE | 2018-08-16 16:09 | P.PN ---
Subjective Progress Note Date: 08/16/18 Altered mental status, lactic acidosis, suspect sepsis, acute hypoxic/ hypercapnic respiratory failure, hepatocellular carcinoma with metastases This is a 72-year-old gentleman who follows with Dr. Hayden as his primary care physician. He has a history of end-stage renal disease receiving hemodialysis on Thursday, previous alcohol abuse, previous GI bleeding, hypertension, hyperlipidemia, diabetes mellitus. He was transferred here to the regular medical floor from [facility] yesterday due to altered mental status. He was found to have a fever of unknown origin and elevated ammonia levels. He subsequently developed hypotension and respiratory distress and an A team was called and he was transferred here to the intensive care unit. He is seen today in consultation. He is currently on BiPAP 14/5 and 50% FiO2 to maintain O2 saturations in the 90s. He is currently quite weak and obtunded. Difficult to arouse. He currently has a 0.9 normal saline at 100 MLS per hour. No urine output currently. Chest x-ray shows evidence of cardiomegaly with moderate size right pleural effusion and associated right basilar atelectasis and/or infiltrate. Reticular nodular opacities bilaterally possibly reflecting diffuse edema and/or infiltrates but nodularity is concerning. Metastatic disease and septic emboli air in the differential. White count 4.8. Hemoglobin 9.2. Platelet count 100,000 and creatinine 2.05. Initial lactic acid 2.4 currently 2.1. Current ammonia level 27. He did receive lactulose. He does have multiple open wounds on the lower extremities and sacral area. He'll be initiated on Unasyn. On 08/15/2018 patient seen in follow-up in the intensive care unit. He is awake and alert, oriented 2, to person and place, extremely weak, he had been on BiPAP with pressures of 14 and 5 and FiO2 of 50%, and he has been given a trial of nasal cannula, and is currently on 15 L high flow. No fever, no chills , hemodynamically patient is stable, IV fluids 0.9 normal saline at a rate of 100 ML per hour, no other drips. CT chest was done yesterday, and showed a spec cirrhotic liver with suspicious right hepatic dome mass, possible hepatocellular carcinoma, hepatosplenomegaly with mild surrounding ascites. There were scattered bilateral pulmonary nodules suspicious for diffuse metastatic disease, small right pleural fluid collection. Patient had elevated ammonia, and bilateral lower extremity wound infections. Blood and urine cultures show no growth to date. Final cultures are pending, patient was fluid resuscitated, his blood pressures have improved, today's lab work shows white blood cell count of 4.2, hemoglobin of 9.2, serum sodium is 138, potassium is 3.4, chloride is 104, B1 is 27 and creatinine is 2.54. Nephrology is following , hemodialysis had been held in view of patient's hypotension, patient is on Midrin. And his extremely weak, has a weak congested nonproductive cough. Lung sounds are positive for diffuse rhonchi. Abdomen is obese, but nontender and soft. There is lower extremity edema, lower extremities are wrapped with dressings. ID service is following, and current antibiotic coverage includes Unasyn. We'll status has been discussed with the patient, patient's CODE STATUS is DO NOT RESUSCITATE. On 08/16/2098 seeing this patient for a follow-up. His condition is essentially unchanged. He is doing poorly. He seems to be more so BiPAP dependent and BiPAP was restarted at a pressure of 14/5 cm of water with an FiO2 of 50%. The patient was unable to tolerate the high flow oxygen. Meanwhile, I reviewed his CAT scan of the chest and there is obviously metastatic pulmonary deposits which makes me think that is very much likely the patient has metastatic liver cancer, probably of a hepatocellular carcinoma type knowing that his previous alpha fetoprotein level was quite elevated and this was from 2015. A repeat FLP total protein level will be obtained. Meanwhile, the patient chest x-ray from today shows stable consolidation and pleural effusion and increased interstitial markings bilaterally. There is also small and multiple pulmonary nodules consistent with metastases. The patient was also started hemodialysis regarding an acute kidney injury. He is receiving hemodialysis Thursday and Thursday. He has some signs of volume overload. This is supposed improved with hemodialysis. Davies catheter has been removed this morning. No fever. No chills. No hematemesis. He is quite lethargic and his C-reactive significant amount of motor weakness related to his above-mentioned comorbidities. There may be an underlying component of encephalopathy knowing that the patient's ammonia level was also elevated. He is currently on lactulose 20 mg 3 times a day. He is on midodrine for blood pressure control. IV antibiotics with Unasyn Objective - Vital Signs Vital signs: Vital Signs Temp 97.8 F 08/16/18 12:00 Pulse 74 08/16/18 14:00 Resp 11 L 08/16/18 14:00 BP 124/62 08/16/18 14:00 Pulse Ox 94 L 08/16/18 14:00 Intake & Output 08/15/18 08/16/18 08/16/18 18:59 06:59 18:59 Intake Total 1570 600 500 Output Total 11 1 Balance 1559 599 500 Weight 141.3 kg 141.3 kg Intake: IV 850 600 500 Ampicillin-Sulbactam 3 gm 100 100 In Sodium Chloride 0.9% 100 ml @ 200 mls/hr IVPB Q6HR [facility] Rx#:[id number] Sodium Chloride 0.9% 1, 750 600 400 000 ml @ 50 mls/hr IV . Q20H [facility] Rx#:[id number] Oral 720 Output: Urine 10 0 Stool 1 Urine/Stool Mix 1 Other: Voiding Method Indwelling Catheter Incontinent Incontinent # Voids 1 # Bowel Movements 1 1 - Exam GENERAL EXAM: Alert, 72-year-old obese white male, currently on BiPAP for respiratory support and the patient seems to be synchronous with the BiPAP mask. He is lethargic and sleepy yet arousable. There may be an underlying component of encephalopathy. HEAD: Normocephalic/atraumatic. EYES: Normal reaction of pupils, equal size. Conjunctiva pink, sclera white. NOSE: Clear with pink turbinates. THROAT: No erythema or exudates. NECK: No masses, no JVD, no thyroid enlargement, no adenopathy. CHEST: No chest wall deformity. Symmetrical expansion. LUNGS: Equal air entry with diffuse rhonchi, patient has a weak nonproductive congested cough CVS: Regular rate and rhythm, normal S1 and S2, no gallops, no murmurs, no rubs ABDOMEN: Soft, nontender. No hepatosplenomegaly, normal bowel sounds, no guarding or rigidity. EXTREMITIES: No clubbing, 2+ lower extremity edema, bilateral lower extremity wounds, covered with dressings, no cyanosis, 2+ pulses and upper and lower extremities. MUSCULOSKELETAL: Muscle strength and tone normal. SPINE: No scoliosis or deformity SKIN: No rashes CENTRAL NERVOUS SYSTEM: Alert and oriented -2. No focal deficits, tone is normal in all 4 extremities, however there is considerable amount of motor weakness in all 4 extremities. - Labs CBC & Chem 7: 08/16/18 04:25 08/16/18 04:25 Labs: Abnormal Lab Results - Last 24 Hours (Table) 08/15/18 08/15/18 08/16/18 Range/Units 17:10 20:52 04:25 RBC 2.93 L (4.30-5.90) m/uL Hgb 9.2 L (13.0-17.5) gm/dL Hct 30.9 L (39.0-53.0) % MCV 105.2 H (80.0-100.0) fL MCHC 29.9 L (31.0-37.0) g/dL RDW 19.6 H (11.5-15.5) % Plt Count 76 L (150-450) k/uL Lymphocytes # (Manual) 0.72 L (1.0-4.8) k/uL Myelocytes # (Manual) 0.05 H (0) k/uL BUN (9-20) mg/dL Creatinine (0.66-1.25) mg/dL POC Glucose (mg/dL) 152 H 176 H (75-99) mg/dL Phosphorus (2.5-4.5) mg/dL Ammonia (<30) umol/L 08/16/18 08/16/18 Range/Units 04:25 04:25 RBC (4.30-5.90) m/uL Hgb (13.0-17.5) gm/dL Hct (39.0-53.0) % MCV (80.0-100.0) fL MCHC (31.0-37.0) g/dL RDW (11.5-15.5) % Plt Count (150-450) k/uL Lymphocytes # (Manual) (1.0-4.8) k/uL Myelocytes # (Manual) (0) k/uL BUN 30 H (9-20) mg/dL Creatinine 3.03 H (0.66-1.25) mg/dL POC Glucose (mg/dL) (75-99) mg/dL Phosphorus 6.1 H (2.5-4.5) mg/dL Ammonia 53 H (<30) umol/L Microbiology - Last 24 Hours (Table) 08/14/18 01:53 Blood Culture - Preliminary Blood No Growth after 48 hours 08/14/18 16:48 Urine Culture - Final Urine,Catheterized Assessment and Plan Plan: #1 Altered mental status of unclear etiology. This is likely an encephalopathy which is probably a combination of metabolic and septic encephalopathy. The patient's ammonia level was elevated and this obviously raises the concern for hepatic insufficiency and patient is currently on lactulose. Patient is also on broad-spectrum antibiotics with Unasyn. #2 Lactic acidosis contrary to suspected sepsis possibly cellulitis from the lower extremities and coccyx area wounds. The patient remains on IV Unasyn. #3 Acute hypoxic/hypercapnic respiratory failure secondary to fluid volume overload , right pleural effusion with infiltrate. Currently requiring BiPAP support. The patient is to undergo hemodialysis today. #4 Cirrhotic of liver with suspicious right hepatic dome mass, suspected hepatocellular carcinoma, with scattered bilateral pulmonary nodules suspicious for diffuse metastatic disease, with a previous alpha-fetoprotein levels being quite elevated supporting the diagnosis. The patient will need a hematology oncology evaluation. #5 Morbid obesity. #6 Previous history of alcoholism. #7 Anemia secondary to above. #8 Thrombocytopenia secondary to above. #9 Acute on chronic renal failure with end-stage renal disease receiving renal replacement therapy with hemodialysis Thursday. #10 Diabetes mellitus #11 Hypertension, history of. #12 Hyperlipidemia. #13 History of GI bleed and esophageal varices status post banding. Plan This is an extremely debilitated 72-year-old male patient with multiple medical problems and comorbidities most significant of which is the liver finding which is highly suggestive of the sella carcinoma. I'm going to repeat alpha- fetoprotein level. I reviewed the CAT scan of the abdomen and the chest and there is a liver mass with multiple pulmonary nodules scattered throughout the lung his bilaterally. I'm going to discuss the findings with hematology oncology and get their opinion regarding prognosis regarding this issue. Meanwhile, continue hemodialysis, continue lactulose, continue IV Unasyn, continue BiPAP for respiratory support, and the prognosis remains poor baseline above-mentioned comorbidities. This evaluation was done and more than 30 minutes including time down to discussed the findings with the power of utilization engineer Is to be a nephew. Time with Patient: Greater than 30
[2018-08-16 17:42] LABS: Glucose,Whole Blood 89 mg/dL (75-99)
--- NOTE | 2018-08-16 18:29 | P.CONS ---
History of Present Illness - Reason for Consult Consult date: 08/16/18 liver mass Requesting physician: Jose Vázquez - Chief Complaint AMS - History of Present Illness Pt has bi-pap on, lethargic, not responding to questions. Information taken from the chart, case discussed with nephew at bedside who is POA, unfortunately he does not know much of the medical history. Case reviewed with Pulmonary Pt was seen a few years ago by Dr. Saenz for anemia secondary to bleeding esophageal varices. At that time pt was diagnosed with cirrhosis and was referred to Branch Office Administrator but, he was unable to keep those appts. He was lost to any f/u. Pt presents now with AMS, he has large liver mass and bilateral lung nodules on imaging, he is in real failure requiring dialysis. Review of Systems ROS unobtainable: due to mental status Past Medical History Past Medical History: Diabetes Mellitus, Eye Disorder, GERD/Reflux, GI Bleed, Hyperlipidemia, Hypertension, Osteoarthritis (OA), Skin Disorder Additional Past Medical History / Comment(s): HX GI BLEEDING. esophageal varicies History of Any Multi-Drug Resistant Organisms: None Reported Past Surgical History: Cholecystectomy, Heart Catheterization, Orthopedic Surgery, Tonsillectomy Additional Past Surgical History / Comment(s): colonoscopy, right kneerepair 3, . esophoheal varicies banding Past Anesthesia/Blood Transfusion Reactions: No Reported Reaction Past Psychological History: No Psychological Hx Reported Smoking Status: Never smoker Past Alcohol Use History: None Reported Past Drug Use History: None Reported - Past Family History Mother Family Medical History: Hypertension, Myocardial Infarction (AL) Father Family Medical History: Hypertension, Myocardial Infarction (AL) Medications and Allergies Home Medications Medication Instructions Recorded Confirmed Type Acetaminophen Tab [Tylenol] 650 mg PO TID PRN 08/13/18 08/13/18 History Ergocalciferol (Vitamin D2) 50,000 unit PO Q7DAYS 08/13/18 08/13/18 History [Drisdol] Famotidine [Pepcid] 20 mg PO HS 08/13/18 08/13/18 History HYDROcodone/APAP 5-325MG [Lamar 1 tab PO DIRECTED 08/13/18 08/13/18 History 5-325] Midodrine HCl [ProAmatine] 10 mg PO MOWEFR 08/13/18 08/13/18 History Nystatin 100,000Unit/gm Cream 1 applic TOPICAL DIRECTED 08/13/18 08/13/18 History [Mycostatin Cream] Petrolatum, White [Aquaphor] 1 applic TOPICAL DAILY 08/13/18 08/13/18 History Pravastatin Sodium [Pravachol] 40 mg PO HS 08/13/18 08/13/18 History Propranolol HCl [Inderal] 60 mg PO TID 08/13/18 08/13/18 History Simethicone 80 mg PO Q6HR 08/13/18 08/13/18 History guaiFENesin [Diabetic Tussin Ex] 200 mg PO Q4HR PRN 08/13/18 08/13/18 History Allergies Allergy/AdvReac Type Severity Reaction Status Date / Time No Known Allergies Allergy Verified 08/13/18 23:37 Physical Exam Vitals: Vital Signs Temp Pulse Resp BP Pulse Ox 08/16/18 17:30 75 08/16/18 17:00 78 18 126/115 93 L 08/16/18 16:00 97.8 F 78 21 97/70 95 08/16/18 15:00 70 10 L 92/56 95 08/16/18 14:00 74 11 L 124/62 94 L 08/16/18 13:00 64 15 125/64 96 08/16/18 12:08 72 08/16/18 12:00 97.8 F 72 41 H 117/63 95 08/16/18 11:56 70 08/16/18 11:00 61 17 111/59 92 L 08/16/18 10:00 64 16 105/53 93 L 08/16/18 09:00 65 12 131/61 92 L 08/16/18 08:43 66 08/16/18 08:31 68 90 L 08/16/18 08:00 97.6 F 71 15 107/52 91 L 08/16/18 07:00 65 10 L 117/71 92 L 08/16/18 06:00 69 16 114/59 92 L 08/16/18 05:00 72 18 123/58 92 L 08/16/18 04:00 96.9 F L 73 19 107/59 92 L 08/16/18 03:38 69 08/16/18 03:24 71 08/16/18 03:00 68 16 130/70 92 L 08/16/18 02:00 70 28 H 131/69 92 L 08/16/18 01:00 69 18 117/61 91 L 08/16/18 00:00 97.8 F 69 14 127/69 92 L 08/15/18 23:37 68 08/15/18 23:25 68 08/15/18 23:00 70 15 113/56 93 L 08/15/18 22:00 67 15 116/61 94 L 08/15/18 21:00 61 12 124/58 94 L 08/15/18 20:09 66 08/15/18 20:00 97.7 F 70 15 112/69 98 08/15/18 19:58 70 08/15/18 19:00 73 20 103/68 93 L Intake and Output 08/16/18 08/16/18 08/16/18 06:59 14:59 22:59 Intake Total 350 500 150 Output Total 1 Balance 349 500 150 Intake: IV 350 500 150 Ampicillin-Sulbactam 3 gm 100 In Sodium Chloride 0.9% 100 ml @ 200 mls/hr IVPB Q6HR [facility] Rx#:[id number] Sodium Chloride 0.9% 1, 350 400 150 000 ml @ 50 mls/hr IV . Q20H [facility] Rx#:[id number] Output: Stool 1 Other: Voiding Method Incontinent Incontinent Incontinent # Voids 1 # Bowel Movements 1 1 Weight 141.3 kg 141.3 kg - Constitutional General appearance: mild distress, morbidly obese - EENT Eyes: anicteric sclerae, EOMI - Neck Neck: no lymphadenopathy - Respiratory Respiratory: bilateral: diminished - Cardiovascular Heart sounds: normal: S1, S2 leg Peripheral Edema: bilateral: 1+ - Gastrointestinal General gastrointestinal: no absent bowel sounds, no decreased bowel sounds, distended, no hyperactive bowel sounds, normal bowel sounds, organomegaly, no rigid, no scaphoid, soft, no tenderness, no umbilical hernia, no ventral hernia - Integumentary BLE bronzing of skin suggestive of venous statsis, PVD - Musculoskeletal Musculoskeletal: generalized weakness - Psychiatric opens eyes to voice, drifts off to sleep, did not answer any questions Psychiatric: no appropriate affect, no intact judgment & insight Results CBC & Chem 7: 08/16/18 04:25 08/16/18 04:25 Labs: Abnormal Lab Results - Last 24 Hours (Table) 08/15/18 08/16/18 08/16/18 Range/Units 20:52 04:25 04:25 RBC 2.93 L (4.30-5.90) m/uL Hgb 9.2 L (13.0-17.5) gm/dL Hct 30.9 L (39.0-53.0) % MCV 105.2 H (80.0-100.0) fL MCHC 29.9 L (31.0-37.0) g/dL RDW 19.6 H (11.5-15.5) % Plt Count 76 L (150-450) k/uL Lymphocytes # (Manual) 0.72 L (1.0-4.8) k/uL Myelocytes # (Manual) 0.05 H (0) k/uL BUN 30 H (9-20) mg/dL Creatinine 3.03 H (0.66-1.25) mg/dL POC Glucose (mg/dL) 176 H (75-99) mg/dL Phosphorus 6.1 H (2.5-4.5) mg/dL Ammonia (<30) umol/L 08/16/18 Range/Units 04:25 RBC (4.30-5.90) m/uL Hgb (13.0-17.5) gm/dL Hct (39.0-53.0) % MCV (80.0-100.0) fL MCHC (31.0-37.0) g/dL RDW (11.5-15.5) % Plt Count (150-450) k/uL Lymphocytes # (Manual) (1.0-4.8) k/uL Myelocytes # (Manual) (0) k/uL BUN (9-20) mg/dL Creatinine (0.66-1.25) mg/dL POC Glucose (mg/dL) (75-99) mg/dL Phosphorus (2.5-4.5) mg/dL Ammonia 53 H (<30) umol/L Microbiology - Last 24 Hours (Table) 08/14/18 01:53 Blood Culture - Preliminary Blood No Growth after 48 hours 08/14/18 16:48 Urine Culture - Final Urine,Catheterized CT scan - chest: report reviewed, image reviewed Assessment and Plan (1) Liver mass Current Visit: Yes Status: Acute Priority: High Code(s): R16.0 - HEPATOMEGALY, NOT ELSEWHERE CLASSIFIED SNOMED Code(s): 477867045 (2) Lung nodules Current Visit: Yes Status: Acute Priority: High Code(s): R91.8 - OTHER NONSPECIFIC ABNORMAL FINDING OF LUNG FIELD SNOMED Code(s): 131519684 Plan: In 2016 pt had an AFP>3000, AFP has been ordered Case discussed with Pulmonary and POA. Concern is for risk to pt trying to perform a biopsy for diagnosis. The liver is risky as pt is a bleeding risk due to liver disease. Biopsy of the lung nodules is risky because of poor respiratory status. Pt is currently on dialysis with other co-morbid conditions, all of which make him a very challenging, high risk patient for biopsy at this time. No biopsies planned for now. The diagnosis of HCC can be made clinically-suspicious imaging, history of diagnosed liver disease/cirrhosis and a significantly elevated AFP. If the pt clinically has HCC he is in no condition to tolerate therapy at this time. Unfortunately, the treatment options are very limited to begin with and most are hard to tolerate but, we will cont to follow and monitor pt progress. For now, goal is to stabilize pt, give dialysis and see if his condition improves. Attests: I have performed H&P and developed impression and plan of care of patient, discussed with dictator. I agree with dictated note, documented as a scribe.
[2018-08-16 20:57] LABS: Glucose,Whole Blood 100 mg/dL (75-99)
--- NOTE | 2018-08-16 21:44 | P.PN ---
Subjective this is a pleasant 72 yo M with pmh of diabetes mellitus, hypertension and hyperlipidemia , Gi bleed and esophageal varices , he is more awake today , he denies chest pain or dyspnea, his oxygen saturation is 92% on 12 L oxygen via high flow [place] pt is currently on bipap. rest of vitals are stable. hemoglobin 9.2, creatinine 3.0 which is slightly increased from 2.5 , glucose at 100 mg/dl. chest xray showing stable right side consolidation and pleural effusion with multiple bilateral pulmonary nodules . pt is currently on unasyn and lactulose 20 mg three times a day. CONSTITUTIONAL: No fever, no malaise, no fatigue. HEENT: No recent visual problems or hearing problems. Denied any sore throat. CARDIOVASCULAR: No orthopnea, PND, no palpitations, no syncope. PULMONARY: No shortness of breath, no cough, no hemoptysis. GASTROINTESTINAL: No diarrhea, no nausea, no vomiting, no abdominal pain. Normoactive bowel sounds. NEUROLOGICAL: No headaches, no weakness, no numbness. HEMATOLOGICAL: Denies any bleeding or petechiae. GENITOURINARY: Denies any burning micturition, frequency, or urgency. MUSCULOSKELETAL/RHEUMATOLOGICAL: Denies any joint pain, swelling, or any muscle pain. ENDOCRINE: Denies any polyuria or polydipsia. medication: Tylenol , unasyn , protonix, insulin, ultram , lactulose, midodrine , and albuterol Objective - Vital Signs Vital signs: Vital Signs Temp 97.8 F 08/16/18 12:00 Pulse 72 08/16/18 12:08 Resp 41 H 08/16/18 12:00 BP 117/63 08/16/18 12:00 Pulse Ox 95 08/16/18 12:00 Intake & Output 08/15/18 08/16/18 08/16/18 18:59 06:59 18:59 Intake Total 1570 600 350 Output Total 11 1 Balance 1559 599 350 Weight 141.3 kg 141.3 kg Intake: IV 850 600 350 Ampicillin-Sulbactam 3 gm 100 100 In Sodium Chloride 0.9% 100 ml @ 200 mls/hr IVPB Q6HR DANIEL Rx#:[id number] Sodium Chloride 0.9% 1, 750 600 250 000 ml @ 50 mls/hr IV . Q20H DANIEL Rx#:[id number] Oral 720 Output: Urine 10 0 Stool 1 Urine/Stool Mix 1 Other: Voiding Method Indwelling Catheter Incontinent Incontinent # Voids 1 # Bowel Movements 1 1 - Exam GENERAL: The patient is alert and oriented x3, not in any acute distress. Well developed, well nourished. HEENT: Pupils are round and equally reacting to light. EOMI. No scleral icterus. No conjunctival pallor. Normocephalic, atraumatic. No pharyngeal erythema. No thyromegaly. CARDIOVASCULAR: S1 and S2 present. No murmurs, rubs, or gallops. PULMONARY: Chest is clear to auscultation, no wheezing or crackles. ABDOMEN: Soft, nontender, nondistended, normoactive bowel sounds. No palpable organomegaly. MUSCULOSKELETAL: No joint swelling or deformity. EXTREMITIES: No cyanosis, clubbing, or pedal edema. NEUROLOGICAL: Gross neurological examination did not reveal any focal deficits. SKIN: No rashes. - Labs CBC & Chem 7: 08/16/18 04:25 08/16/18 04:25 Labs: Abnormal Lab Results - Last 24 Hours (Table) 08/15/18 08/15/18 08/16/18 Range/Units 17:10 20:52 04:25 RBC 2.93 L (4.30-5.90) m/uL Hgb 9.2 L (13.0-17.5) gm/dL Hct 30.9 L (39.0-53.0) % MCV 105.2 H (80.0-100.0) fL MCHC 29.9 L (31.0-37.0) g/dL RDW 19.6 H (11.5-15.5) % Plt Count 76 L (150-450) k/uL Lymphocytes # (Manual) 0.72 L (1.0-4.8) k/uL Myelocytes # (Manual) 0.05 H (0) k/uL BUN (9-20) mg/dL Creatinine (0.66-1.25) mg/dL POC Glucose (mg/dL) 152 H 176 H (75-99) mg/dL Phosphorus (2.5-4.5) mg/dL Ammonia (<30) umol/L 08/16/18 08/16/18 Range/Units 04:25 04:25 RBC (4.30-5.90) m/uL Hgb (13.0-17.5) gm/dL Hct (39.0-53.0) % MCV (80.0-100.0) fL MCHC (31.0-37.0) g/dL RDW (11.5-15.5) % Plt Count (150-450) k/uL Lymphocytes # (Manual) (1.0-4.8) k/uL Myelocytes # (Manual) (0) k/uL BUN 30 H (9-20) mg/dL Creatinine 3.03 H (0.66-1.25) mg/dL POC Glucose (mg/dL) (75-99) mg/dL Phosphorus 6.1 H (2.5-4.5) mg/dL Ammonia 53 H (<30) umol/L Microbiology - Last 24 Hours (Table) 08/14/18 01:53 Blood Culture - Preliminary Blood No Growth after 48 hours 08/14/18 16:48 Urine Culture - Final Urine,Catheterized Assessment and Plan Assessment: metabolic encephalopathy , improving bilateral cellulitis bilateral pulmonary nodules suspicious for metastatic disease metastatic liver cancer, possible hepatocellular carcinoma. High AFP thrombcytopenia high ammonia level history of diabetes mellitus essential hypertension history of hyperlipidemia history of GI bleed and esophageal varices history of alcohol abuse Plan: this is a pleasant 72 yo M who presents with metabolic encephalopathy , continue in the ICU with pulmonary/critical care team monitoring the pt closely . contineu with unasyn antibiotic , lactulose therapy with monitoring how many bowel movements each day.hematology/oncology consult is appreciated continue with the same treatment , continue with symptomatic treatment , resume home medication , monitor lytes and vitals including glucose , c/w iv fluids, cardiology consult is appreciated. infectious disease consult is appreciated . c /w same antibioitc . GI and DVT prophylaxis , further recommendation based upon pt clinical course and progress DVT px : no heparin due to low platelet count, hematology team on the case GI px protonix Prognosis is guarded
--- NOTE | 2018-08-16 23:23 | PN ---
PROGRESS NOTE DATE OF SERVICE: 08/16/2018. REASON FOR FOLLOW UP: Lower extremity wound cellulitis. INTERVAL HISTORY: The patient is currently afebrile. He is hemodynamically stable, not on any pressor support. He is breathing comfortably. Did require a BiPAP. . No diarrhea per the nursing staff. PHYSICAL EXAMINATION: Blood pressure 97/70 with a pulse of 70, temperature 97.8, she is 95%. GENERAL DESCRIPTION: An elderly male lying in bed in no distress. RESPIRATORY SYSTEM: Unlabored breathing with decreased breath sounds at the bases. No wheezes. HEART: S1, S2. Regular rate and rhythm. ABDOMEN: Soft, no tenderness. EXTREMITIES: Minimal redness noted. LABS: Hemoglobin 9.1, white count 4.8 with a BUN of 30, creatinine 3.03. Blood cultures have been negative. DIAGNOSTIC IMPRESSION AND PLAN: Patient with bilateral lower extremity wound with secondary cellulitis. Local care to continue with Aquacel Silver dressing along with Unasyn. Reevaluate leg wound tomorrow. Continue supportive care. MMODL / IJN: [id number] /
[2018-08-17] MEDS: IPRATROPIUM-ALBUTEROL 3 ML NEB INHALATION SCH ×6 (00:16→20:57)
[2018-08-17 05:48] LABS: Calcium 9.5 mg/dL (8.4-10.2); Potassium 3.8 mmol/L (3.5-5.1)
[2018-08-17 06:05] LABS: Anisocytosis Slight; Basophils % (A) 1 %; Eosinophils # (A) 0.3 k/uL (0-0.7); Eosinophils % (A) 6 %; HCT 32.5 % (39.0-53.0); HGB 9.5 gm/dL (13.0-17.5); Lymphocytes # (A) 0.9 k/uL (1.0-4.8); Lymphocytes % (A) 16 %; MCHC 29.1 g/dL (31.0-37.0); MCV 103.2 fL (80.0-100.0); Macrocytosis Marked; Mean Platelet Volume 7.9; Monocytes # (A) 0.5 k/uL (0-1.0); Monocytes % (A) 8 %; Neutrophils # (A) 3.7 k/uL (1.3-7.7); Neutrophils % (A) 68 %; RBC 3.15 m/uL (4.30-5.90); RDW 19.8 % (11.5-15.5); WBC 5.5 k/uL (3.8-10.6)
[2018-08-17 07:20] LABS: Hypochromasia Marked; Polychromasia Present; Target Cells Present
[2018-08-17 07:21] LABS: Platelet Count 64 k/uL (150-450)
[2018-08-17 07:30] LABS: Glucose,Whole Blood 99 mg/dL (75-99)
[2018-08-17] MEDS: INSULIN ASPART (NovoLOG) 100 UNIT/ML VIAL SQ SCH ×4 (07:48→20:43)
[2018-08-17] MEDS: PANTOPRAZOLE 40 MG TABLET PO SCH (08:02)
[2018-08-17] MEDS: MIDODRINE 5 MG TAB PO SCH ×3 (08:02→18:40)
[2018-08-17] MEDS: AMPICILLIN-SULBACTAM 3 GM in SODIUM CHLORIDE 0.9% 100 ML IVPB SCH ×2 (08:02→21:35)
--- NOTE | 2018-08-17 08:21 | XR ---
EXAMINATION TYPE: XR chest 1V DATE OF EXAM: 08/17/2018 COMPARISON: Prior chest x-ray 08/16/[address] chest 08/14/2018 HISTORY: Shortness of breath TECHNIQUE: Single frontal view of the chest is obtained. FINDINGS: Right jugular central venous catheter is present, tip is overlying the region of the super ior vena cava which shows a slight bend. There is elevation of the right hemidiaphragm. Bilateral nod ularity scattered throughout the lungs. No evident pneumothorax. Heart is enlarged. Patient is rotate d, there are cardiac leads. IMPRESSION: Pleural effusion, hepatomegaly with elevated right hemidiaphragm. Cardiomegaly. Multiple pulmonary nodules suspicious for metastatic disease.
[2018-08-17] MEDS ORDERED: LACTULOSE 20 GM/30 ML CUP PO SCH (09:00)
--- NOTE | 2018-08-17 10:58 | P.PN ---
Subjective Progress Note Date: 08/17/18 Altered mental status, lactic acidosis, suspect sepsis, acute hypoxic/ hypercapnic respiratory failure, hepatocellular carcinoma with metastases This is a 72-year-old gentleman who follows with Dr. Hayden as his primary care physician. He has a history of end-stage renal disease receiving hemodialysis on Thursday, previous alcohol abuse, previous GI bleeding, hypertension, hyperlipidemia, diabetes mellitus. He was transferred here to the regular medical floor from [facility] yesterday due to altered mental status. He was found to have a fever of unknown origin and elevated ammonia levels. He subsequently developed hypotension and respiratory distress and an A team was called and he was transferred here to the intensive care unit. He is seen today in consultation. He is currently on BiPAP 14/5 and 50% FiO2 to maintain O2 saturations in the 90s. He is currently quite weak and obtunded. Difficult to arouse. He currently has a 0.9 normal saline at 100 MLS per hour. No urine output currently. Chest x-ray shows evidence of cardiomegaly with moderate size right pleural effusion and associated right basilar atelectasis and/or infiltrate. Reticular nodular opacities bilaterally possibly reflecting diffuse edema and/or infiltrates but nodularity is concerning. Metastatic disease and septic emboli air in the differential. White count 4.8. Hemoglobin 9.2. Platelet count 100,000 and creatinine 2.05. Initial lactic acid 2.4 currently 2.1. Current ammonia level 27. He did receive lactulose. He does have multiple open wounds on the lower extremities and sacral area. He'll be initiated on Unasyn. On 08/15/2018 patient seen in follow-up in the intensive care unit. He is awake and alert, oriented 2, to person and place, extremely weak, he had been on BiPAP with pressures of 14 and 5 and FiO2 of 50%, and he has been given a trial of nasal cannula, and is currently on 15 L high flow. No fever, no chills , hemodynamically patient is stable, IV fluids 0.9 normal saline at a rate of 100 ML per hour, no other drips. CT chest was done yesterday, and showed a spec cirrhotic liver with suspicious right hepatic dome mass, possible hepatocellular carcinoma, hepatosplenomegaly with mild surrounding ascites. There were scattered bilateral pulmonary nodules suspicious for diffuse metastatic disease, small right pleural fluid collection. Patient had elevated ammonia, and bilateral lower extremity wound infections. Blood and urine cultures show no growth to date. Final cultures are pending, patient was fluid resuscitated, his blood pressures have improved, today's lab work shows white blood cell count of 4.2, hemoglobin of 9.2, serum sodium is 138, potassium is 3.4, chloride is 104, B1 is 27 and creatinine is 2.54. Nephrology is following , hemodialysis had been held in view of patient's hypotension, patient is on Midrin. And his extremely weak, has a weak congested nonproductive cough. Lung sounds are positive for diffuse rhonchi. Abdomen is obese, but nontender and soft. There is lower extremity edema, lower extremities are wrapped with dressings. ID service is following, and current antibiotic coverage includes Unasyn. We'll status has been discussed with the patient, patient's CODE STATUS is DO NOT RESUSCITATE. On 08/16/2098 seeing this patient for a follow-up. His condition is essentially unchanged. He is doing poorly. He seems to be more so BiPAP dependent and BiPAP was restarted at a pressure of 14/5 cm of water with an FiO2 of 50%. The patient was unable to tolerate the high flow oxygen. Meanwhile, I reviewed his CAT scan of the chest and there is obviously metastatic pulmonary deposits which makes me think that is very much likely the patient has metastatic liver cancer, probably of a hepatocellular carcinoma type knowing that his previous alpha fetoprotein level was quite elevated and this was from 2015. A repeat FLP total protein level will be obtained. Meanwhile, the patient chest x-ray from today shows stable consolidation and pleural effusion and increased interstitial markings bilaterally. There is also small and multiple pulmonary nodules consistent with metastases. The patient was also started hemodialysis regarding an acute kidney injury. He is receiving hemodialysis Thursday and Thursday. He has some signs of volume overload. This is supposed improved with hemodialysis. Davies catheter has been removed this morning. No fever. No chills. No hematemesis. He is quite lethargic and his C-reactive significant amount of motor weakness related to his above-mentioned comorbidities. There may be an underlying component of encephalopathy knowing that the patient's ammonia level was also elevated. He is currently on lactulose 20 mg 3 times a day. He is on midodrine for blood pressure control. IV antibiotics with Unasyn On 08/17/2018, I'm seeing this patient for a follow-up. Patient is still in intensive care unit. The patient underwent dialysis yesterday and another session of ultrafiltration with him today. The patient's overall pulmonary status is stable. The patient is currently off the BiPAP. Chest x-ray findings essentially unchanged. There is pleural effusion on the right along with hepatomegaly and elevation of the right hemidiaphragm and the patient has multiple bilateral pulmonary nodules more so on the left consistent with metastatic disease. The repeat alpha-fetoprotein level is still pending for now. The overall picture is consistent with metastatic hepatocellular carcinoma. The patient also has an incisional disease and currently is on hemodialysis. He is weak. A swallow evaluation was done today and I would suggest repeating a swallow evaluation knowing that the patient is able to swallow contrary to the recommendations made by the speech pathologist. The patient is taking lactulose. Is having adequate bowel movements. Lactulose and those has been drop to once a day. The patient is on IV Unasyn as an empiric antibiotic coverage. The patient is on no pressors for now. Mental status is adequate. The patient is able to follow some simple commands and answers some simple questions. No signs of any apparent respiratory distress at this point in time. No fever. No chills. No aspiration. No leukocytosis. He was stable at 9.5. Creatinine is down to 2.49 as the patient underwent dialysis yesterday. CODE STATUS is DO NOT RESUSCITATE Objective - Vital Signs Vital signs: Vital Signs Temp 97.5 F L 08/17/18 08:00 Pulse 90 08/17/18 10:00 Resp 18 08/17/18 10:00 BP 123/85 08/17/18 10:00 Pulse Ox 93 L 08/17/18 10:00 Intake & Output 08/16/18 08/17/18 08/17/18 18:59 06:59 18:59 Intake Total 750 1010 300 Output Total 4 Balance 750 1006 300 Weight 141.3 kg 142 kg Intake: IV 750 550 300 Ampicillin-Sulbactam 3 gm 100 100 In Sodium Chloride 0.9% 100 ml @ 200 mls/hr IVPB Q6HR DANIEL Rx#:[id number] Sodium Chloride 0.9% 1, 650 550 200 000 ml @ 50 mls/hr IV . Q20H DANIEL Rx#:[id number] Intake, IV Titration 100 Amount Ampicillin-Sulbactam 3 gm 100 In Sodium Chloride 0.9% 100 ml @ 200 mls/hr IVPB Q12HR DANIEL Rx#:[id number] Oral 360 Output: Urine 0 Stool 2 Urine/Stool Mix 2 Other: Voiding Method Incontinent Incontinent Incontinent # Voids 1 # Bowel Movements 1 1 - Exam GENERAL EXAM: Alert, 72-year-old obese white male, currently on BiPAP for respiratory support and the patient seems to be more awake compared to yesterday. He is currently off the BiPAP and oxygen by nasal cannula high flow at 10 L per minute to maintain a saturation of 93%. HEAD: Normocephalic/atraumatic. EYES: Normal reaction of pupils, equal size. Conjunctiva pink, sclera white. NOSE: Clear with pink turbinates. THROAT: No erythema or exudates. NECK: No masses, no JVD, no thyroid enlargement, no adenopathy. CHEST: No chest wall deformity. Symmetrical expansion. LUNGS: Equal air entry with diffuse rhonchi, patient has a weak nonproductive congested cough CVS: Regular rate and rhythm, normal S1 and S2, no gallops, no murmurs, no rubs ABDOMEN: Soft, nontender. No hepatosplenomegaly, normal bowel sounds, no guarding or rigidity. EXTREMITIES: No clubbing, 2+ lower extremity edema, bilateral lower extremity wounds, covered with dressings, no cyanosis, 2+ pulses and upper and lower extremities. Extremity edema is improving as the patient is undergoing dialysis with ultrafiltration. MUSCULOSKELETAL: Muscle strength and tone normal. SPINE: No scoliosis or deformity SKIN: No rashes CENTRAL NERVOUS SYSTEM: Alert and oriented -2. No focal deficits, tone is normal in all 4 extremities, however there is considerable amount of motor weakness in all 4 extremities. - Labs CBC & Chem 7: 08/17/18 04:43 08/17/18 04:43 Labs: Abnormal Lab Results - Last 24 Hours (Table) 08/16/18 08/17/18 08/17/18 Range/Units 20:45 04:43 04:43 RBC 3.15 L (4.30-5.90) m/uL Hgb 9.5 L (13.0-17.5) gm/dL Hct 32.5 L (39.0-53.0) % MCV 103.2 H (80.0-100.0) fL MCHC 29.1 L (31.0-37.0) g/dL RDW 19.8 H (11.5-15.5) % Plt Count 64 L (150-450) k/uL Lymphocytes # 0.9 L (1.0-4.8) k/uL Carbon Dioxide 21 L (22-30) mmol/L BUN 22 H (9-20) mg/dL Creatinine 2.49 H (0.66-1.25) mg/dL POC Glucose (mg/dL) 100 H (75-99) mg/dL Phosphorus 5.0 H (2.5-4.5) mg/dL Microbiology - Last 24 Hours (Table) 08/14/18 01:53 Blood Culture - Preliminary Blood No Growth after 72 hours Assessment and Plan Plan: #1 Altered mental status likely secondary to metabolic encephalopathy/hepatic encephalopathy which is improved with lactulose and the dose has been drop to once a day. #2 Lactic acidosis contrary to suspected sepsis possibly cellulitis from the lower extremities and coccyx area wounds. The patient remains on IV Unasyn. #3 Acute hypoxic/hypercapnic respiratory failure secondary to fluid volume overload , right pleural effusion with infiltrate. In addition, the patient had diffuse metastatic pulmonary nodules scattered throughout the lung macario and there is also elevation of the right hemidiaphragm. The patient is currently off the BiPAP. The patient is on high flow oxygen 10 L per minute to maintain a saturation above 90%. #4 Cirrhotic of liver with suspicious right hepatic dome mass, suspected hepatocellular carcinoma, with scattered bilateral pulmonary nodules suspicious for diffuse metastatic disease, with a previous alpha-fetoprotein levels being quite elevated supporting the diagnosis. The patient had an oncology evaluation was support the findings. #5 Morbid obesity. #6 Previous history of alcoholism. #7 Anemia secondary to above. #8 Thrombocytopenia secondary to above. #9 Acute on chronic renal failure with end-stage renal disease receiving renal replacement therapy with hemodialysis Thursday. #10 Diabetes mellitus #11 Hypertension, history of. #12 Hyperlipidemia. #13 History of GI bleed and esophageal varices status post banding. Plan The prognosis extremely poor. The patient has metastatic carcinoma with seems to be better cellular carcinoma. We will going to repeat the alpha-fetoprotein level and the level is still pending for now. Continue hemodialysis to optimize the condition. The patient is currently off the BiPAP. The patient on high flow oxygen. Wean down the lactulose. I don't think that the patient cannot swallow. I'm going to repeat a swallow evaluation. He had a full breakfast this morning without any major difficulties. No signs of any GI bleed. Hemodynamically stable on no pressors. We'll discuss the case with oncology. My overall recommendation that the patient has a very poor prognosis pressure with his metastatic cancer and ultimately will need a cause status change probably due to comfort care measures and hospice. We'll discuss this again with the power of managing attorney. The patient will be kept in ICU for today.
[2018-08-17 12:32] LABS: Glucose,Whole Blood 124 mg/dL (75-99)
[2018-08-17 13:05] LABS: Reticulocyte % 3.7 % (0.5-2.0)
[2018-08-17 15:47] LABS: Iron Saturation 28.4 (15.00-50.00)
[2018-08-17 18:54] LABS: Glucose,Whole Blood 141 mg/dL (75-99)
--- NOTE | 2018-08-17 19:58 | PN ---
PROGRESS NOTE The patient is seen for followup for dialysis dependent renal failure. The patient is maintained on hemodialysis. He did have an extra treatment and mainly for ultrafiltration this morning. He is doing better. There has been discussion regarding hospice and discontinuation of renal replacement therapy. However, this is not decided yet and there will be further discussion later this evening with the rest of the other family members and the patient. PHYSICAL EXAMINATION: This morning, blood pressure was 114/89, heart rate about 80 per minute. Patient is afebrile. Examination of the heart S1, S2. Examination of the lungs, decreased breath sounds at bases. Abdomen is soft, obese, distended, nontender. Examination of lower extremity shows chronic skin changes, chronic edema about 3+ bilaterally. LAMP SHADE SEWER exam shows patient is moving all 4 extremities. LABS SHOW: Sodium 138, potassium 3.8, hemoglobin 9.5 g/dL. ASSESSMENT: 1. Dialysis dependent renal failure with poor urine output, status post hemodialysis yesterday. The patient had ultrafiltration again this morning, which he tolerated well. 2. Volume overload, somewhat improved. 3. Acute hypoxic and hypercapnic respiratory failure, maintained on BiPAP. Etiology is volume overload as well as possible metastasis or infection. 4. Liver mass suspicious for hepatocellular carcinoma with pulmonary nodules suggestive of metastatic disease. 5. Type 2 diabetes. PLAN: Hemodialysis in a.m. Overall prognosis is guarded. We will try to increase UF as tolerated. MMODL / IJN: [id number] /
[2018-08-17 20:46] LABS: Glucose,Whole Blood 105 mg/dL (75-99)
--- NOTE | 2018-08-17 23:40 | PN ---
PROGRESS NOTE DATE OF SERVICE: 08/17/2018 REASON FOR FOLLOWUP: Bilateral lower extremity venous stasis ulcer and cellulitis. INTERVAL HISTORY: The patient is currently afebrile, has been breathing comfortably. No chest pain. No cough. No abdominal pain. Only pain to the leg area. EXAMINATION: Blood pressure 130/78, pulse of 79, temperature 98.1. He is 99% on BiPAP. General description is an elderly male lying in bed in no distress. Respiratory system: Unlabored breathing. Decreased breath sounds in the bases. No wheeze. Heart S1, S2. Regular rate and rhythm. ABDOMEN: Soft, no tenderness. LUNGS: With swelling, the left leg did have two ulcers with slight bleeding at the time of dressing changes, but no slough tissue. Overall redness has decreased. LABS: Hemoglobin 9.5, white count 5.5, BUN of 22, creatinine of 2.49. Blood culture has been negative. DIAGNOSTIC IMPRESSION AND PLAN: Patient with bilateral lower extremity venous stasis ulcers and secondary cellulitis. The patient is currently covered on Unasyn. Continue local wound care with Aquacel Silver dressing and an Ronaldo wrap to keep the swelling down. Continue supportive care. MMODL / IJN: [id number] /
--- NOTE | 2018-08-17 23:50 | P.PN ---
Subjective Progress Note Date: 08/17/18 Principal diagnosis: Acute metabolic encephalopathy Hepatic encephalopathy ESRD on hemodialysis Bilateral lower extremities cellulitis this is a pleasant 72 yo M with pmh of diabetes mellitus, hypertension and hyperlipidemia , Gi bleed and esophageal varices , he is more awake today , he denies chest pain or dyspnea, his oxygen saturation is 92% on 12 L oxygen via high flow [place] pt is currently on bipap. rest of vitals are stable. hemoglobin 9.2, creatinine 3.0 which is slightly increased from 2.5 , glucose at 100 mg/dl. chest xray showing stable right side consolidation and pleural effusion with multiple bilateral pulmonary nodules . pt is currently on unasyn and lactulose 20 mg three times a day. 08/17/2018 Patient is awake alert but seems very lethargic and confused. Patient did have hemodialysis yesterday and today. Currently saturating on nausea cannula oxygen. Chest x-ray showed pleural effusion, hepatomegaly with elevated right hemidiaphragm. Cardiomegaly. Multiple pulmonary nodules suspicious for metastatic disease. Patient failed swallow evaluation as per speech pathology. Patient otherwise is taking lactulose. Patient is being continued on antibiotics in the form of Unasyn for cellulitis. Bilateral lower extremities swelling and redness is improving. No fever no chills. Hemoglobin is stable at 9.5. Creatinine trending down to 2.49. Complete review of systems could not be obtained from the patient Current medications reviewed. Objective - Vital Signs Vital signs: Vital Signs Temp 97.8 F 08/17/18 16:00 Pulse 92 08/17/18 16:00 Resp 19 08/17/18 16:00 BP 115/59 08/17/18 16:00 Pulse Ox 91 L 08/17/18 16:00 Intake & Output 08/16/18 08/17/18 08/17/18 18:59 06:59 18:59 Intake Total 750 1010 550 Output Total 4 1 Balance 750 1006 549 Weight 141.3 kg 142 kg Intake: IV 750 550 300 Ampicillin-Sulbactam 3 gm 100 100 In Sodium Chloride 0.9% 100 ml @ 200 mls/hr IVPB Q6HR [facility] Rx#:[id number] Sodium Chloride 0.9% 1, 650 550 200 000 ml @ 50 mls/hr IV . Q20H [facility] Rx#:[id number] Intake, IV Titration 100 Amount Ampicillin-Sulbactam 3 gm 100 In Sodium Chloride 0.9% 100 ml @ 200 mls/hr IVPB Q12HR [facility] Rx#:[id number] Oral 360 250 Output: Urine 0 0 Stool 2 1 Urine/Stool Mix 2 Other: Voiding Method Incontinent Incontinent Incontinent # Voids 1 # Bowel Movements 1 1 - Exam GENERAL: The patient is alert and oriented x2-3, not in any acute distress. Well developed, well nourished. Lethargic and confused HEENT: Pupils are round and equally reacting to light. EOMI. No scleral icterus. No conjunctival pallor. Normocephalic, atraumatic. No pharyngeal erythema. No thyromegaly. CARDIOVASCULAR: S1 and S2 present. No murmurs, rubs, or gallops. PULMONARY: Bibasilar diminished air entry, no wheezing or crackles. ABDOMEN: Soft, nontender, distended, normoactive bowel sounds. No palpable organomegaly. MUSCULOSKELETAL: No joint swelling or deformity. EXTREMITIES: Lower extremities 3+ edema and cellulitis with redness and warmth up to below knee area and. NEUROLOGICAL: Gross neurological examination did not reveal any focal deficits. SKIN: No rashes except above. - Labs CBC & Chem 7: 08/17/18 04:43 08/17/18 04:43 Labs: Abnormal Lab Results - Last 24 Hours (Table) 08/16/18 08/16/18 08/17/18 Range/Units 06:00 20:45 04:43 RBC 3.15 L (4.30-5.90) m/uL Hgb 9.5 L (13.0-17.5) gm/dL Hct 32.5 L (39.0-53.0) % MCV 103.2 H (80.0-100.0) fL MCHC 29.1 L (31.0-37.0) g/dL RDW 19.8 H (11.5-15.5) % Plt Count 64 L (150-450) k/uL Lymphocytes # 0.9 L (1.0-4.8) k/uL Retic Count (0.5-2.0) % Carbon Dioxide (22-30) mmol/L BUN (9-20) mg/dL Creatinine (0.66-1.25) mg/dL POC Glucose (mg/dL) 100 H (75-99) mg/dL Phosphorus (2.5-4.5) mg/dL Ferritin (22.0-322.0) ng/mL Tumor Marker AFP >382829.0 H (0.0-7.9) ng/mL Vitamin B12 (200.0-944.0) pg/mL 08/17/18 08/17/18 08/17/18 Range/Units 04:43 04:43 04:43 RBC (4.30-5.90) m/uL Hgb (13.0-17.5) gm/dL Hct (39.0-53.0) % MCV (80.0-100.0) fL MCHC (31.0-37.0) g/dL RDW (11.5-15.5) % Plt Count (150-450) k/uL Lymphocytes # (1.0-4.8) k/uL Retic Count 3.7 H (0.5-2.0) % Carbon Dioxide 21 L (22-30) mmol/L BUN 22 H (9-20) mg/dL Creatinine 2.49 H (0.66-1.25) mg/dL POC Glucose (mg/dL) (75-99) mg/dL Phosphorus 5.0 H (2.5-4.5) mg/dL Ferritin 414.5 H (22.0-322.0) ng/mL Tumor Marker AFP (0.0-7.9) ng/mL Vitamin B12 3548.0 H (200.0-944.0) pg/mL 08/17/18 Range/Units 12:21 RBC (4.30-5.90) m/uL Hgb (13.0-17.5) gm/dL Hct (39.0-53.0) % MCV (80.0-100.0) fL MCHC (31.0-37.0) g/dL RDW (11.5-15.5) % Plt Count (150-450) k/uL Lymphocytes # (1.0-4.8) k/uL Retic Count (0.5-2.0) % Carbon Dioxide (22-30) mmol/L BUN (9-20) mg/dL Creatinine (0.66-1.25) mg/dL POC Glucose (mg/dL) 124 H (75-99) mg/dL Phosphorus (2.5-4.5) mg/dL Ferritin (22.0-322.0) ng/mL Tumor Marker AFP (0.0-7.9) ng/mL Vitamin B12 (200.0-944.0) pg/mL Microbiology - Last 24 Hours (Table) 08/14/18 01:53 Blood Culture - Preliminary Blood No Growth after 72 hours Assessment and Plan Assessment: Altered mental status secondary to metabolic and hepatic encephalopathy. Ammonia level normalized now. Bilateral lower extremity cellulitis and wounds in the coccyx area. With possible sepsis Acute hypoxic and hypercapnic respiratory failure secondary to fluid overload and right pleural effusion. Metastatic pulmonary nodules Liver cirrhosis with suspicious right hepatic dome mass. Suspected hepatocellular carcinoma. Oncology on board. Morbid obesity BMI 44.9 History of alcohol abuse Chronic anemia possibly anemia of chronic disease Acute on chronic kidney disease. Currently ESRD on hemodialysis Diabetes type 2 Hypertension Hyperlipidemia History of GI bleed and is available basis status post banding Plan: Patient will be continued on antibiotics no cough Unasyn. Continued on midodrine for blood pressure. Hemodialysis as per nephrology. Bilateral lower extremity significant swelling seems to be slightly improved compared to yesterday. Pulmonary and ID is following. Oncology was consulted due to suspicious metastatic pulmonary nodules with possible hepatocellular carcinoma. Repeat AFP level is pending. Further recommendations based on the clinical course. Prognosis is poor. Time with Patient: Greater than 30
[2018-08-18] MEDS: IPRATROPIUM-ALBUTEROL 3 ML NEB INHALATION SCH ×6 (00:21→20:42)
[2018-08-18 05:02] LABS: Calcium 10.1 mg/dL (8.4-10.2); Magnesium 2.2 mg/dL (1.6-2.3); Potassium 3.6 mmol/L (3.5-5.1)
[2018-08-18 06:52] LABS: Anisocytosis Slight; HCT 32.6 % (39.0-53.0); HGB 9.5 gm/dL (13.0-17.5); Hypochromasia Marked; MCH 30.9 pg (25.0-35.0); MCHC 29.1 g/dL (31.0-37.0); MCV 106.1 fL (80.0-100.0); Macrocytosis Marked; Mean Platelet Volume 7.4; RBC 3.07 m/uL (4.30-5.90); RDW 19.5 % (11.5-15.5); WBC 4.7 k/uL (3.8-10.6)
[2018-08-18 06:53] LABS: Platelet Count 64 k/uL (150-450)
[2018-08-18] MEDS: INSULIN ASPART (NovoLOG) 100 UNIT/ML VIAL SQ SCH ×4 (07:14→20:17)
[2018-08-18 07:25] LABS: Glucose,Whole Blood 91 mg/dL (75-99)
--- NOTE | 2018-08-18 09:19 | XR ---
EXAMINATION TYPE: XR chest 1V DATE OF EXAM: 08/18/2018 COMPARISON: Prior chest x-ray 08/17/2018 HISTORY: Shortness of breath TECHNIQUE: Single frontal view of the chest is obtained. FINDINGS: Interstitium may be increased in the interval, question progression of airspace disease. H eart remains enlarged. Catheter is stable. No pneumothorax. IMPRESSION: Correlate for pulmonary edema, volume overload
[2018-08-18] MEDS: AMPICILLIN-SULBACTAM 3 GM in SODIUM CHLORIDE 0.9% 100 ML IVPB SCH ×2 (09:32→21:05)
[2018-08-18] MEDS: LACTULOSE 20 GM/30 ML CUP PO SCH (09:32)
[2018-08-18 10:37] LABS: Band Neutrophils % 1 %; Eosinophils # (M) 0.24 k/uL (0-0.7); Lymphocytes # (M) 0.42 k/uL (1.0-4.8); Monocytes # (M) 0.33 k/uL (0-1.0); Myelocytes # (M) 0.05 k/uL (0); Myelocytes % 1 %; Neutrophils % (M) 78 %; Nucleated Red Blood Cells 0 /100 WBC (0-0); Total Cells Counted 200
[2018-08-18 10:39] LABS: Polychromasia Present
[2018-08-18 10:40] LABS: Poikilocytosis (M) Present
[2018-08-18] MEDS: PANTOPRAZOLE 40 MG TABLET PO SCH (11:48)
[2018-08-18] MEDS: MIDODRINE 5 MG TAB PO SCH ×3 (11:48→17:49)
[2018-08-18 12:24] LABS: Glucose,Whole Blood 77 mg/dL (75-99)
--- NOTE | 2018-08-18 15:05 | PN ---
PROGRESS NOTE Patient is seen for followup for dialysis dependent renal failure. He was dialyzed today. Patient is awake, comfortable. He is not in any acute distress. He failed his swallowing test and currently we are waiting to get in touch with the power of [place] attorney. PHYSICAL EXAMINATION: Blood pressure was 112/78, heart rate 86 per minute. He is afebrile. Examination of the heart, S1, S2. Examination of the lungs, bilateral breath sounds are heard. Abdomen is soft, nontender, obese. Examination of the lower extremities shows chronic skin changes, chronic edema. VP MEDICAL exam is grossly intact. LABS: Show sodium 138, potassium 3.6, hemoglobin 9.5, BUN of 27, serum creatinine 3.15. ASSESSMENT: 1. Dialysis-dependent renal failure, maintained on hemodialysis. Patient had ultrafiltration done yesterday. He is on the schedule for regular dialysis today. We will assess his volume status again tomorrow for possible need for UF only. 2. Volume overload, currently improving. 3. Acute hypoxic and hypercapnic respiratory failure secondary to congestive heart failure and possible metastasis, currently improved. The patient had been maintained on BiPAP. 4. Liver mass suspicious for hepatocellular carcinoma with pulmonary nodules suggestive of metastatic disease. 5. Type 2 diabetes. PLAN: Hemodialysis today and UF only tomorrow for volume overload. MMODL / IJN: [id number] /
--- NOTE | 2018-08-18 15:14 | P.PN ---
Subjective Progress Note Date: 08/18/18 Principal diagnosis: DID, AMS, liver mass, lung nodules Today in f/u pt is getting dialysis, he shakes his head no to nausea, hunger, pain or need to go to the bathroom. Pt voice is weak and barely a whisper Objective - Vital Signs Vital signs: Vital Signs Temp 98.1 F 08/18/18 08:00 Pulse 91 08/18/18 12:05 Resp 12 08/18/18 10:00 BP 128/78 08/18/18 10:00 Pulse Ox 95 08/18/18 10:00 Intake & Output 08/17/18 08/18/18 08/18/18 18:59 06:59 18:59 Intake Total 550 100 100 Output Total 1 1 0 Balance 549 99 100 Weight 138.9 kg Intake: IV 300 100 100 Ampicillin-Sulbactam 3 gm 100 100 In Sodium Chloride 0.9% 100 ml @ 200 mls/hr IVPB Q12HR [facility] Rx#:[id number] Ampicillin-Sulbactam 3 gm 100 In Sodium Chloride 0.9% 100 ml @ 200 mls/hr IVPB Q6HR [facility] Rx#:[id number] Sodium Chloride 0.9% 1, 200 000 ml @ 50 mls/hr IV . Q20H [facility] Rx#:[id number] Oral 250 Output: Urine 0 0 0 Stool 1 1 Other: Voiding Method Incontinent Incontinent # Bowel Movements 1 ABP, PAP, CO, CI - Last Documented Cardiac Output 6.5 Cardiac Index 2.8 - Constitutional General appearance: Present: cooperative, morbidly obese, no acute distress - EENT Eyes: Present: anicteric sclerae, EOMI ENT: Present: hearing grossly normal - Respiratory Respiratory: bilateral: diminished, wheezing (scattered) - Cardiovascular Rhythm: regular Heart sounds: normal: S1, S2 Abnormal Heart Sounds: Absent: systolic murmur, diastolic murmur, rub, S3 Gallop , S4 Gallop, click, other - Peripheral edema leg Peripheral Edema: bilateral: 3+ (non-pitting) - Gastrointestinal General gastrointestinal: Present: distended, normal bowel sounds, soft - Neurologic Neurologic Comment(s): no gross unilateral deficits noted - Musculoskeletal Musculoskeletal: Present: generalized weakness - Psychiatric Psychiatric Comment(s): Alert, NAD, respirations are unlabored, on O2, no cyanosis of the mouth noted, trying to communicate, voice is weak, barely audible whisper. I do not think he understands our discussion - Labs CBC & Chem 7: 08/18/18 04:12 08/18/18 04:12 Labs: Abnormal Lab Results - Last 24 Hours (Table) 08/17/18 08/17/18 08/17/18 Range/Units 04:43 18:42 20:35 RBC (4.30-5.90) m/uL Hgb (13.0-17.5) gm/dL Hct (39.0-53.0) % MCV (80.0-100.0) fL MCHC (31.0-37.0) g/dL RDW (11.5-15.5) % Plt Count (150-450) k/uL Lymphocytes # (Manual) (1.0-4.8) k/uL Myelocytes # (Manual) (0) k/uL BUN (9-20) mg/dL Creatinine (0.66-1.25) mg/dL POC Glucose (mg/dL) 141 H 105 H (75-99) mg/dL Phosphorus (2.5-4.5) mg/dL Ferritin 414.5 H (22.0-322.0) ng/mL Ammonia (<30) umol/L Vitamin B12 3548.0 H (200.0-944.0) pg/mL 08/18/18 08/18/18 08/18/18 Range/Units 04:12 04:12 04:12 RBC 3.07 L (4.30-5.90) m/uL Hgb 9.5 L (13.0-17.5) gm/dL Hct 32.6 L (39.0-53.0) % MCV 106.1 H (80.0-100.0) fL MCHC 29.1 L (31.0-37.0) g/dL RDW 19.5 H (11.5-15.5) % Plt Count 64 L (150-450) k/uL Lymphocytes # (Manual) 0.42 L (1.0-4.8) k/uL Myelocytes # (Manual) 0.05 H (0) k/uL BUN 27 H (9-20) mg/dL Creatinine 3.15 H (0.66-1.25) mg/dL POC Glucose (mg/dL) (75-99) mg/dL Phosphorus 6.0 H (2.5-4.5) mg/dL Ferritin (22.0-322.0) ng/mL Ammonia 30 H (<30) umol/L Vitamin B12 (200.0-944.0) pg/mL Microbiology - Last 24 Hours (Table) 08/14/18 01:53 Blood Culture - Preliminary Blood No Growth after 96 hours Assessment and Plan (1) Liver mass Current Visit: Yes Status: Acute Priority: High Code(s): R16.0 - HEPATOMEGALY, NOT ELSEWHERE CLASSIFIED SNOMED Code(s): 295492530 (2) Lung nodules Current Visit: Yes Status: Acute Priority: High Code(s): R91.8 - OTHER NONSPECIFIC ABNORMAL FINDING OF LUNG FIELD SNOMED Code(s): 768080165 Plan: Patient's nephew was not available today. I discussed with pt the "tumor marker " that was just over 3,000 in 2016 that is now >100,000. I explained to him that with his history of liver disease, high AFP and mass on the liver that clinically he does have liver cancer. I told him that we think the spots in his lungs might be cancer too. I told him that he needs to be in better shape before we can do anything else about the cancer. Reviewed renal failure, dialysis and respiratory impairment. We reviewed that treatment for hepatocellular carcinoma is not an option due to poor performance status. Dr. Saenz reviewed patient records from 2016, the liver mass was present. Patient was referred at that time for further workup he did not pursue that. Surprisingly, it does not appear that the liver mass has grown substantially in almost 3 years but there are new lung nodules. The most optimal scenario would be for biopsy of the liver for diagnosis and a PET scan to evaluate the lung nodules. There is the ability to diagnose hepatocellular carcinoma with a significantly elevated AFP (patient's AFP was just over 3000 and 2016, his most recent lab draw it is greater than 100,000), positive imaging and a history of liver disease-all of which patient has. For now we will just follow pt hospital course. I was asked by Case Management if hospice is an option. Hospice is a reasonable choice especially if pt condition does not improve or deteriorates.
[2018-08-18 17:03] LABS: Glucose,Whole Blood 75 mg/dL (75-99)
--- NOTE | 2018-08-18 18:05 | P.PN ---
Subjective Progress Note Date: 08/18/18 Principal diagnosis: Altered mental status secondary to acute sepsis with acute hypoxic/hypercapnic respiratory failure. Altered mental status, lactic acidosis, suspect sepsis, acute hypoxic/ hypercapnic respiratory failure, hepatocellular carcinoma with metastases This is a 72-year-old gentleman who follows with Dr. Hayden as his primary care physician. He has a history of end-stage renal disease receiving hemodialysis on Thursday, previous alcohol abuse, previous GI bleeding, hypertension, hyperlipidemia, diabetes mellitus. He was transferred here to the regular medical floor from [facility] yesterday due to altered mental status. He was found to have a fever of unknown origin and elevated ammonia levels. He subsequently developed hypotension and respiratory distress and an A team was called and he was transferred here to the intensive care unit. He is seen today in consultation. He is currently on BiPAP 14/5 and 50% FiO2 to maintain O2 saturations in the 90s. He is currently quite weak and obtunded. Difficult to arouse. He currently has a 0.9 normal saline at 100 MLS per hour. No urine output currently. Chest x-ray shows evidence of cardiomegaly with moderate size right pleural effusion and associated right basilar atelectasis and/or infiltrate. Reticular nodular opacities bilaterally possibly reflecting diffuse edema and/or infiltrates but nodularity is concerning. Metastatic disease and septic emboli air in the differential. White count 4.8. Hemoglobin 9.2. Platelet count 100,000 and creatinine 2.05. Initial lactic acid 2.4 currently 2.1. Current ammonia level 27. He did receive lactulose. He does have multiple open wounds on the lower extremities and sacral area. He'll be initiated on Unasyn. On 08/15/2018 patient seen in follow-up in the intensive care unit. He is awake and alert, oriented 2, to person and place, extremely weak, he had been on BiPAP with pressures of 14 and 5 and FiO2 of 50%, and he has been given a trial of nasal cannula, and is currently on 15 L high flow. No fever, no chills , hemodynamically patient is stable, IV fluids 0.9 normal saline at a rate of 100 ML per hour, no other drips. CT chest was done yesterday, and showed a spec cirrhotic liver with suspicious right hepatic dome mass, possible hepatocellular carcinoma, hepatosplenomegaly with mild surrounding ascites. There were scattered bilateral pulmonary nodules suspicious for diffuse metastatic disease, small right pleural fluid collection. Patient had elevated ammonia, and bilateral lower extremity wound infections. Blood and urine cultures show no growth to date. Final cultures are pending, patient was fluid resuscitated, his blood pressures have improved, today's lab work shows white blood cell count of 4.2, hemoglobin of 9.2, serum sodium is 138, potassium is 3.4, chloride is 104, B1 is 27 and creatinine is 2.54. Nephrology is following , hemodialysis had been held in view of patient's hypotension, patient is on Midrin. And his extremely weak, has a weak congested nonproductive cough. Lung sounds are positive for diffuse rhonchi. Abdomen is obese, but nontender and soft. There is lower extremity edema, lower extremities are wrapped with dressings. ID service is following, and current antibiotic coverage includes Unasyn. We'll status has been discussed with the patient, patient's CODE STATUS is DO NOT RESUSCITATE. On 08/16/2098 seeing this patient for a follow-up. His condition is essentially unchanged. He is doing poorly. He seems to be more so BiPAP dependent and BiPAP was restarted at a pressure of 14/5 cm of water with an FiO2 of 50%. The patient was unable to tolerate the high flow oxygen. Meanwhile, I reviewed his CAT scan of the chest and there is obviously metastatic pulmonary deposits which makes me think that is very much likely the patient has metastatic liver cancer, probably of a hepatocellular carcinoma type knowing that his previous alpha fetoprotein level was quite elevated and this was from 2016. A repeat FLP total protein level will be obtained. Meanwhile, the patient chest x-ray from today shows stable consolidation and pleural effusion and increased interstitial markings bilaterally. There is also small and multiple pulmonary nodules consistent with metastases. The patient was also started hemodialysis regarding an acute kidney injury. He is receiving hemodialysis Thursday and Thursday. He has some signs of volume overload. This is supposed improved with hemodialysis. Davies catheter has been removed this morning. No fever. No chills. No hematemesis. He is quite lethargic and his C-reactive significant amount of motor weakness related to his above-mentioned comorbidities. There may be an underlying component of encephalopathy knowing that the patient's ammonia level was also elevated. He is currently on lactulose 20 mg 3 times a day. He is on midodrine for blood pressure control. IV antibiotics with Unasyn On 08/17/2018, I'm seeing this patient for a follow-up. Patient is still in intensive care unit. The patient underwent dialysis yesterday and another session of ultrafiltration with him today. The patient's overall pulmonary status is stable. The patient is currently off the BiPAP. Chest x-ray findings essentially unchanged. There is pleural effusion on the right along with hepatomegaly and elevation of the right hemidiaphragm and the patient has multiple bilateral pulmonary nodules more so on the left consistent with metastatic disease. The repeat alpha-fetoprotein level is still pending for now. The overall picture is consistent with metastatic hepatocellular carcinoma. The patient also has an incisional disease and currently is on hemodialysis. He is weak. A swallow evaluation was done today and I would suggest repeating a swallow evaluation knowing that the patient is able to swallow contrary to the recommendations made by the speech pathologist. The patient is taking lactulose. Is having adequate bowel movements. Lactulose and those has been drop to once a day. The patient is on IV Unasyn as an empiric antibiotic coverage. The patient is on no pressors for now. Mental status is adequate. The patient is able to follow some simple commands and answers some simple questions. No signs of any apparent respiratory distress at this point in time. No fever. No chills. No aspiration. No leukocytosis. He was stable at 9.5. Creatinine is down to 2.49 as the patient underwent dialysis yesterday. CODE STATUS is DO NOT RESUSCITATE The patient is seen today 08/18/2017 in follow-up in the intensive care unit. He is currently undergoing hemodialysis. He is currently awake and alert. His voice is quite weak and soft. He did not pass a swallow evaluation. There is concern regarding continued microaspiration. He is currently afebrile. Maintaining O2 saturations in the upper 90s on 4 L high flow nasal cannula. He is hemodynamically stable. Blood cultures reveal no growth. Urine culture reveals no growth. White count 4.7. Hemoglobin 9.5. Creatinine 3.15. He remains on Unasyn. Today's chest x-ray shows suspected progression of airspace disease/pulmonary edema/fluid volume overload. Objective - Vital Signs Vital signs: Vital Signs Temp 98.1 F 08/18/18 08:00 Pulse 93 08/18/18 17:19 Resp 12 08/18/18 10:00 BP 128/78 08/18/18 10:00 Pulse Ox 95 08/18/18 10:00 Intake & Output 08/17/18 08/18/18 08/18/18 18:59 06:59 18:59 Intake Total 550 100 100 Output Total 1 1 0 Balance 549 99 100 Weight 138.9 kg Intake: IV 300 100 100 Ampicillin-Sulbactam 3 gm 100 100 In Sodium Chloride 0.9% 100 ml @ 200 mls/hr IVPB Q12HR DANIEL Rx#:[id number] Ampicillin-Sulbactam 3 gm 100 In Sodium Chloride 0.9% 100 ml @ 200 mls/hr IVPB Q6HR DANIEL Rx#:[id number] Sodium Chloride 0.9% 1, 200 000 ml @ 50 mls/hr IV . Q20H DANIEL Rx#:[id number] Oral 250 Output: Urine 0 0 0 Stool 1 1 Other: Voiding Method Incontinent Incontinent # Bowel Movements 1 ABP, PAP, CO, CI - Last Documented Cardiac Output 6.5 Cardiac Index 2.8 - Exam GENERAL EXAM: Alert, 72-year-old obese white male, while off BiPAP and down to 4 L high flow nasal cannula and maintaining good O2 saturations in the 90s. HEAD: Normocephalic/atraumatic. EYES: Normal reaction of pupils, equal size. Conjunctiva pink, sclera white. NOSE: Clear with pink turbinates. THROAT: No erythema or exudates. Voices very weak and soft. NECK: No masses, no JVD, no thyroid enlargement, no adenopathy. CHEST: No chest wall deformity. Symmetrical expansion. LUNGS: Equal air entry with diffuse rhonchi, patient has a weak nonproductive congested cough CVS: Regular rate and rhythm, normal S1 and S2, no gallops, no murmurs, no rubs ABDOMEN: Soft, nontender. No hepatosplenomegaly, normal bowel sounds, no guarding or rigidity. EXTREMITIES: No clubbing, 2+ lower extremity edema, bilateral lower extremity wounds, covered with dressings, no cyanosis, 2+ pulses and upper and lower extremities. Extremity edema is improving as the patient is undergoing dialysis with ultrafiltration. MUSCULOSKELETAL: Muscle strength and tone extremely weak. SPINE: No scoliosis or deformity SKIN: No rashes CENTRAL NERVOUS SYSTEM: Alert and oriented -2. No focal deficits, tone is normal in all 4 extremities, however there is considerable amount of motor weakness in all 4 extremities. - Labs CBC & Chem 7: 08/18/18 04:12 08/18/18 04:12 Labs: Abnormal Lab Results - Last 24 Hours (Table) 08/17/18 08/17/18 08/18/18 Range/Units 18:42 20:35 04:12 RBC 3.07 L (4.30-5.90) m/uL Hgb 9.5 L (13.0-17.5) gm/dL Hct 32.6 L (39.0-53.0) % MCV 106.1 H (80.0-100.0) fL MCHC 29.1 L (31.0-37.0) g/dL RDW 19.5 H (11.5-15.5) % Plt Count 64 L (150-450) k/uL Lymphocytes # (Manual) 0.42 L (1.0-4.8) k/uL Myelocytes # (Manual) 0.05 H (0) k/uL BUN (9-20) mg/dL Creatinine (0.66-1.25) mg/dL POC Glucose (mg/dL) 141 H 105 H (75-99) mg/dL Phosphorus (2.5-4.5) mg/dL Ammonia (<30) umol/L 08/18/18 08/18/18 Range/Units 04:12 04:12 RBC (4.30-5.90) m/uL Hgb (13.0-17.5) gm/dL Hct (39.0-53.0) % MCV (80.0-100.0) fL MCHC (31.0-37.0) g/dL RDW (11.5-15.5) % Plt Count (150-450) k/uL Lymphocytes # (Manual) (1.0-4.8) k/uL Myelocytes # (Manual) (0) k/uL BUN 27 H (9-20) mg/dL Creatinine 3.15 H (0.66-1.25) mg/dL POC Glucose (mg/dL) (75-99) mg/dL Phosphorus 6.0 H (2.5-4.5) mg/dL Ammonia 30 H (<30) umol/L Microbiology - Last 24 Hours (Table) 08/14/18 01:53 Blood Culture - Preliminary Blood No Growth after 96 hours Assessment and Plan Assessment: Impression: #1 Altered mental status of unclear etiology. Suspect metabolic/hepatic encephalopathy secondary to suspected sepsis. Improved with lactulose. #2 Lactic acidosis contrary to suspected sepsis possibly cellulitis from the lower extremities and coccyx area wounds. Remains on Unasyn. #3 Acute hypoxic/hypercapnic respiratory failure secondary to fluid volume overload, right pleural effusion with infiltrate. Improved and weaned down to 4 L high flow nasal cannula. #4 Morbid obesity. #5 Chronic Liver with Suspicious Right Hepatic Dome Mass, Suspected Hepatocellular Carcinoma, Multiple Bilateral Pulmonary Nodules Suspicious for Diffuse Metastatic Disease. Alpha-Fetoprotein Levels Elevated. #6 Anemia secondary to above. #7 Thrombocytopenia secondary to above. #8 Acute on chronic renal failure with end-stage renal disease receiving renal replacement therapy with hemodialysis Thursday. #9 Diabetes mellitus #10 Hypertension, history of. #11 Hyperlipidemia. #12 History of GI bleed and esophageal varices status post banding. Plan: The patient was seen and evaluated by Dr. Gordon. Chest x-ray and labs were reviewed. He continues to receive ultra filtration for the fluid volume overload. He remains on Unasyn. Swallow eval revealed microaspiration. The patient is a DO NOT INTUBATE CODE STATUS. Oncology has seen the patient and his overall prognosis remains quite poor based on his multiple comorbidities. Not likely to be a treatment candidate. He may benefit from a hospice/comfort care consult once the family agrees. The power of caterpillar operator will be in in the morning to speak with Dr. Gordon. We will continue to follow and make further recommendations based on his clinical status. I, the cosigning physician, performed a history & physical examination of the patient. Lungs sounds with few scattered rhonchi, crackles in the right posterior base, diminished. Maintaining good O2 saturations in the 90s on 4 L high flow nasal cannula %. I discussed the assessment and plan of care with my nurse practitioner, Estrellita Sinha. I attest to the above note as dictated by her. Time with Patient: Greater than 30
[2018-08-18] MEDS: DEXTROSE 5% IN WATER 1,000 ML IV SCH (20:16)
[2018-08-18 20:27] LABS: Glucose,Whole Blood 76 mg/dL (75-99)
--- NOTE | 2018-08-18 22:01 | P.PN ---
Subjective Progress Note Date: 08/18/18 Principal diagnosis: Acute metabolic encephalopathy Hepatic encephalopathy ESRD on hemodialysis Bilateral lower extremities cellulitis this is a pleasant 72 yo M with pmh of diabetes mellitus, hypertension and hyperlipidemia , Gi bleed and esophageal varices , he is more awake today , he denies chest pain or dyspnea, his oxygen saturation is 92% on 12 L oxygen via high flow [place] pt is currently on bipap. rest of vitals are stable. hemoglobin 9.2, creatinine 3.0 which is slightly increased from 2.5 , glucose at 100 mg/dl. chest xray showing stable right side consolidation and pleural effusion with multiple bilateral pulmonary nodules . pt is currently on unasyn and lactulose 20 mg three times a day. 08/17/2018 Patient is awake alert but seems very lethargic and confused. Patient did have hemodialysis yesterday and today. Currently saturating on nausea cannula oxygen. Chest x-ray showed pleural effusion, hepatomegaly with elevated right hemidiaphragm. Cardiomegaly. Multiple pulmonary nodules suspicious for metastatic disease. Patient failed swallow evaluation as per speech pathology. Patient otherwise is taking lactulose. Patient is being continued on antibiotics in the form of Unasyn for cellulitis. Bilateral lower extremities swelling and redness is improving. No fever no chills. Hemoglobin is stable at 9.5. Creatinine trending down to 2.49. Complete review of systems could not be obtained from the patient 08/18/2018 Patient is currently in the MICU. Undergoing hemodialysis day 3. Otherwise patient is more awake and alert and oriented today. Currently saturating well on 4 L nausea cannula. Ammonia level improved. Patient otherwise failed swallow evaluation. Speech therapy is following. Patient is being continued on Unasyn for lower extremity cellulitis. Leg swelling is still significant and with only minimal improvement. No fever no chills. Chest x-ray showed correlate for pulmonary edema and volume overload. Current medications reviewed. Objective - Vital Signs Vital signs: Vital Signs Temp 97.5 F L 08/18/18 20:00 Pulse 90 08/18/18 21:00 Resp 24 08/18/18 21:00 BP 116/77 08/18/18 21:00 Pulse Ox 94 L 08/18/18 21:00 Intake & Output 08/18/18 08/18/18 08/19/18 06:59 18:59 06:59 Intake Total 100 100 300 Output Total 1 0 0 Balance 99 100 300 Weight 138.9 kg Intake: IV 100 100 300 Ampicillin-Sulbactam 3 gm 100 100 200 In Sodium Chloride 0.9% 100 ml @ 200 mls/hr IVPB Q12HR DANIEL Rx#:[id number] Dextrose 5% in Water 1, 100 000 ml @ 50 mls/hr IV . Q20H DANIEL Rx#:[id number] Output: Urine 0 0 0 Stool 1 Other: Voiding Method Incontinent # Bowel Movements 1 1 ABP, PAP, CO, CI - Last Documented Cardiac Output 6.5 Cardiac Index 2.8 - Exam GENERAL: The patient is alert and oriented x2-3, not in any acute distress. Well developed, well nourished. Lethargic and confused HEENT: Pupils are round and equally reacting to light. EOMI. No scleral icterus. No conjunctival pallor. Normocephalic, atraumatic. No pharyngeal erythema. No thyromegaly. CARDIOVASCULAR: S1 and S2 present. No murmurs, rubs, or gallops. PULMONARY: Bibasilar diminished air entry, no wheezing or crackles. ABDOMEN: Soft, nontender, distended, normoactive bowel sounds. No palpable organomegaly. MUSCULOSKELETAL: No joint swelling or deformity. EXTREMITIES: Lower extremities 3+ edema and cellulitis with redness and warmth up to below knee area and. NEUROLOGICAL: Gross neurological examination did not reveal any focal deficits. SKIN: No rashes except above. - Labs CBC & Chem 7: 08/18/18 04:12 08/18/18 04:12 Labs: Abnormal Lab Results - Last 24 Hours (Table) 08/18/18 08/18/18 08/18/18 Range/Units 04:12 04:12 04:12 RBC 3.07 L (4.30-5.90) m/uL Hgb 9.5 L (13.0-17.5) gm/dL Hct 32.6 L (39.0-53.0) % MCV 106.1 H (80.0-100.0) fL MCHC 29.1 L (31.0-37.0) g/dL RDW 19.5 H (11.5-15.5) % Plt Count 64 L (150-450) k/uL Lymphocytes # (Manual) 0.42 L (1.0-4.8) k/uL Myelocytes # (Manual) 0.05 H (0) k/uL BUN 27 H (9-20) mg/dL Creatinine 3.15 H (0.66-1.25) mg/dL Phosphorus 6.0 H (2.5-4.5) mg/dL Ammonia 30 H (<30) umol/L Microbiology - Last 24 Hours (Table) 08/14/18 01:53 Blood Culture - Preliminary Blood No Growth after 96 hours Assessment and Plan Assessment: Altered mental status secondary to metabolic and hepatic encephalopathy. Ammonia level normalized now. Bilateral lower extremity cellulitis and wounds in the coccyx area. With possible sepsis Acute hypoxic and hypercapnic respiratory failure secondary to fluid overload and right pleural effusion. Metastatic pulmonary nodules Liver cirrhosis with suspicious right hepatic dome mass. Suspected hepatocellular carcinoma. Oncology on board. Morbid obesity BMI 44.9 History of alcohol abuse Chronic anemia possibly anemia of chronic disease Acute on chronic kidney disease. Currently ESRD on hemodialysis Diabetes type 2 Hypertension Hyperlipidemia History of GI bleed and is available basis status post banding Plan: Patient will be continued on antibiotics in the form of Unasyn. Continued on midodrine for blood pressure. Hemodialysis as per nephrology. Bilateral lower extremity significant swelling seems to be slightly improved compared to yesterday. Pulmonary and ID is following. Oncology was consulted due to suspicious metastatic pulmonary nodules with possible hepatocellular carcinoma. Repeat AFP level is pending. Further recommendations based on the clinical course. Prognosis is poor. Time with Patient: Greater than 30
--- NOTE | 2018-08-18 22:05 | PN ---
PROGRESS NOTE DATE OF SERVICE: 08/18/2018. REASON FOR FOLLOWUP: Bilateral cellulitis and wound. INTERVAL HISTORY: The patient is afebrile. He is slightly more awake. He is breathing comfortably. No chest pain or any cough. No abdominal pain and no pain to the leg area. PHYSICAL EXAMINATION: Blood pressure is 116/77, with a pulse of 90, temperature 97.5. He is 94% on 8 L high- flow oxygen. General description is an elderly male lying in bed in no distress. Respiratory system: Unlabored breathing with decreased breath sounds in the base, with no wheeze. Heart S1, S2. Regular rate and rhythm. Abdomen was soft, no tenderness. Legs are currently wrapped up. No obvious drainage on the dressing. LABS: Hemoglobin 9.4, white count 4.7, BUN of 27, creatinine 3.15. DIAGNOSTIC IMPRESSION AND PLAN: Patient with bilateral lower extremity wound with secondary cellulitis. The patient is currently covered on Unasyn to continue for now along with Ronaldo wrap to keep the swelling down. Continue supportive care. MMODL / IJN: [id number] /
[2018-08-19] MEDS: IPRATROPIUM-ALBUTEROL 3 ML NEB INHALATION SCH ×6 (00:50→19:07)
[2018-08-19 06:23] LABS: Anisocytosis Slight; Basophils % (A) 0 %; Eosinophils # (A) 0.3 k/uL (0-0.7); Eosinophils % (A) 5 %; HCT 34.4 % (39.0-53.0); Hypochromasia Marked; Lymphocytes # (A) 1.1 k/uL (1.0-4.8); Lymphocytes % (A) 19 %; MCH 31.1 pg (25.0-35.0); MCHC 29.2 g/dL (31.0-37.0); MCV 106.7 fL (80.0-100.0); Macrocytosis Marked; Mean Platelet Volume 7.2; Monocytes # (A) 0.4 k/uL (0-1.0); Monocytes % (A) 6 %; Neutrophils # (A) 3.9 k/uL (1.3-7.7); Neutrophils % (A) 68 %; RBC 3.22 m/uL (4.30-5.90); RDW 19.6 % (11.5-15.5); WBC 5.7 k/uL (3.8-10.6)
[2018-08-19 06:33] LABS: Platelet Count 64 k/uL (150-450)
[2018-08-19 06:45] LABS: Calcium 10.1 mg/dL (8.4-10.2)
[2018-08-19 06:46] LABS: Magnesium 2.1 mg/dL (1.6-2.3); Phosphorus 5.2 mg/dL (2.5-4.5); Potassium 4.2 mmol/L (3.5-5.1)
[2018-08-19] MEDS: INSULIN ASPART (NovoLOG) 100 UNIT/ML VIAL SQ SCH ×4 (06:53→21:43)
[2018-08-19 07:04] LABS: Glucose,Whole Blood 92 mg/dL (75-99)
[2018-08-19] MEDS: AMPICILLIN-SULBACTAM 3 GM in SODIUM CHLORIDE 0.9% 100 ML IVPB SCH ×2 (08:06→21:47)
[2018-08-19] MEDS: PANTOPRAZOLE 40 MG TABLET PO SCH ×2 (08:06→08:18)
[2018-08-19] MEDS: LACTULOSE 20 GM/30 ML CUP PO SCH ×2 (08:06→10:32)
--- NOTE | 2018-08-19 09:20 | XR ---
EXAMINATION TYPE: XR chest 1V DATE OF EXAM: 08/19/2018 COMPARISON: 08/18/2018 HISTORY: Shortness of breath TECHNIQUE: Single frontal view of the chest is obtained. FINDINGS: Demonstrated are scattered senescent parenchymal change. Diffuse reticulonodular pattern p ersists. Stable right lower lobe atelectasis or pneumonia. Central venous line unchanged in position. The heart is stable. Hilar and mediastinal structures are within normal limits. Degenerative changes are seen of the dorsal spine. IMPRESSION: Stable consolidation and pleural effusion. Multiple bilateral pulmonary nodules are stab le. Correlate for history of malignancy.
[2018-08-19] MEDS: MIDODRINE 5 MG TAB PO SCH ×3 (10:32→18:18)
--- NOTE | 2018-08-19 10:42 | CDI ---
Documentation Clarification Form Date: 08/19/2018 10:15:00 AM From: Mariana Greenberg RN, CCDS Admit Date: 08/14/2018 12:00:00 AM Patient Name: Dillon Morales Visit Number: [id number] Discharge Date: ATTENTION: The Clinical Documentation Specialists (CDI) and [facility] Coding Staff appreciate your assistance in clarifying documentation. Please respond to the clarification below the line at the bottom and electronically sign. The CDI & [facility] Coding staff will review the response and follow-up if needed. Please note: Queries are made part of the Legal Health Record. If you have any questions, please contact the author of this message via ITS. Dr. Claudia Esposito Volume overload, currently improving.Acute hypoxic and hypercapnic respiratory failure secondary to congestive heart failure and possible metastasis, currently improved. History/Risk Factors:72 Year old male presents to the ED for Altered Mental Status. Med/Hx DM , ESRD, HTN Clinical Indicators: VS/Pulse OX: 104/64 99 94% Chest X Ray: 08/14/2018 Congestive heart failure with right pleural effusion that is new compared to old exam. Cardiomegaly unchanged. Treatment: Dialysis Dependent maintained on Hemodialysis. Pt had ultrafiltration 08/17/2018. on Bipap In your professional opinion, can you please clarify the acuity and type of CHF if known? Systolic Heart Failure: Acute Chronic Acute on Chronic Diastolic Heart Failure: Acute Chronic Acute on Chronic Systolic & Diastolic Heart Failure: Acute Chronic Acute on Chronic Heart Failure CHF ruled out volume overload POA Unable to Determine Other, please specify (Last Revision: October 2017) MTDD
--- NOTE | 2018-08-19 11:02 | P.PN ---
Subjective Progress Note Date: 08/19/18 Principal diagnosis: Altered mental status, lactic acidosis, suspect sepsis, acute hypoxic/ hypercapnic respiratory failure, hepatocellular carcinoma with metastases This is a 72-year-old gentleman who follows with Dr. Hayden as his primary care physician. He has a history of end-stage renal disease receiving hemodialysis on Thursday, previous alcohol abuse, previous GI bleeding, hypertension, hyperlipidemia, diabetes mellitus. He was transferred here to the regular medical floor from [facility] yesterday due to altered mental status. He was found to have a fever of unknown origin and elevated ammonia levels. He subsequently developed hypotension and respiratory distress and an A team was called and he was transferred here to the intensive care unit. He is seen today in consultation. He is currently on BiPAP 14/5 and 50% FiO2 to maintain O2 saturations in the 90s. He is currently quite weak and obtunded. Difficult to arouse. He currently has a 0.9 normal saline at 100 MLS per hour. No urine output currently. Chest x-ray shows evidence of cardiomegaly with moderate size right pleural effusion and associated right basilar atelectasis and/or infiltrate. Reticular nodular opacities bilaterally possibly reflecting diffuse edema and/or infiltrates but nodularity is concerning. Metastatic disease and septic emboli air in the differential. White count 4.8. Hemoglobin 9.2. Platelet count 100,000 and creatinine 2.05. Initial lactic acid 2.4 currently 2.1. Current ammonia level 27. He did receive lactulose. He does have multiple open wounds on the lower extremities and sacral area. He'll be initiated on Unasyn. On 08/15/2018 patient seen in follow-up in the intensive care unit. He is awake and alert, oriented 2, to person and place, extremely weak, he had been on BiPAP with pressures of 14 and 5 and FiO2 of 50%, and he has been given a trial of nasal cannula, and is currently on 15 L high flow. No fever, no chills , hemodynamically patient is stable, IV fluids 0.9 normal saline at a rate of 100 ML per hour, no other drips. CT chest was done yesterday, and showed a spec cirrhotic liver with suspicious right hepatic dome mass, possible hepatocellular carcinoma, hepatosplenomegaly with mild surrounding ascites. There were scattered bilateral pulmonary nodules suspicious for diffuse metastatic disease, small right pleural fluid collection. Patient had elevated ammonia, and bilateral lower extremity wound infections. Blood and urine cultures show no growth to date. Final cultures are pending, patient was fluid resuscitated, his blood pressures have improved, today's lab work shows white blood cell count of 4.2, hemoglobin of 9.2, serum sodium is 138, potassium is 3.4, chloride is 104, B1 is 27 and creatinine is 2.54. Nephrology is following , hemodialysis had been held in view of patient's hypotension, patient is on Midrin. And his extremely weak, has a weak congested nonproductive cough. Lung sounds are positive for diffuse rhonchi. Abdomen is obese, but nontender and soft. There is lower extremity edema, lower extremities are wrapped with dressings. ID service is following, and current antibiotic coverage includes Unasyn. We'll status has been discussed with the patient, patient's CODE STATUS is DO NOT RESUSCITATE. On 08/19/2018 patient seen in follow-up in intensive care unit, he is awake, alert, oriented to person and place. Remains extremely generally weak, cough is congested, and nonproductive, patient is not able to clear any phlegm. Sounds are positive for diffuse rhonchi throughout. He is currently on 8 L per nasal cannula, and his taxes 95-98%, afebrile, hemodynamically patient is stable , IV fluids include D5 W at a rate of 50 ML per hour. Patient has had a daily bedside swallow evaluation, and patient has been failing swallow evaluations on the daily basis. Patient is on nebulized bronchodilators, he is receiving lactulose, and his ammonia level this morning is less than 9. Antibiotic coverage includes Unasyn, his cultures have been negative. No fever or chills. Medical oncology is following, patient's alpha-fetoprotein levels came back greater than 100,000, and CT chest showed right hepatic dome mass worrisome for hepatocellular carcinoma, and hepatosplenomegaly, with surrounding ascites, scattered bilateral pulmonary nodules suspicious for diffuse metastatic disease. Patient functional that his is extremely debilitated, patient has been hospitalized between different facilities in [facility] and [facility] since March 2018, has had a very complicated protracted downward health trend. CODE STATUS is DO NOT RESUSCITATE, in view of patient's impaired ability to swallow, a decision needs to be made whether patient's family was to proceed with PEG tube placement and consider palliative care/comfort care. Patient has had daily dialysis. No new chest x-ray today, yesterday chest x- ray showed pulmonary edema and volume overload. Today's labs showed a white blood cell count of 5.7, hemoglobin 10.0, electrolytes were within normal limits , BUN is 20 and creatinine was 2.5, nephrology is following. Objective - Vital Signs Vital signs: Vital Signs Temp 97.5 F L 08/19/18 08:00 Pulse 85 08/19/18 10:00 Resp 12 08/19/18 10:00 BP 100/68 08/19/18 10:00 Pulse Ox 98 08/19/18 10:00 Intake & Output 08/18/18 08/19/18 08/19/18 18:59 06:59 18:59 Intake Total 100 800 250 Output Total 0 0 Balance 100 800 250 Weight 136.3 kg Intake: IV 100 800 250 Ampicillin-Sulbactam 3 gm 100 200 100 In Sodium Chloride 0.9% 100 ml @ 200 mls/hr IVPB Q12HR DANIEL Rx#:[id number] Dextrose 5% in Water 1, 600 150 000 ml @ 50 mls/hr IV . Q20H DANIEL Rx#:[id number] Output: Urine 0 0 Other: Voiding Method Incontinent Incontinent # Bowel Movements 1 ABP, PAP, CO, CI - Last Documented Cardiac Output 6.5 Cardiac Index 2.8 - Exam GENERAL EXAM: Alert, 72-year-old obese white male, and 8 L per high flow nasal cannula comfortable in no apparent distress. HEAD: Normocephalic/atraumatic. EYES: Normal reaction of pupils, equal size. Conjunctiva pink, sclera white. NOSE: Clear with pink turbinates. THROAT: No erythema or exudates. NECK: No masses, no JVD, no thyroid enlargement, no adenopathy. CHEST: No chest wall deformity. Symmetrical expansion. LUNGS: Equal air entry with diffuse rhonchi, patient has a weak nonproductive congested cough CVS: Regular rate and rhythm, normal S1 and S2, no gallops, no murmurs, no rubs ABDOMEN: Soft, nontender. No hepatosplenomegaly, normal bowel sounds, no guarding or rigidity. EXTREMITIES: No clubbing, 2+ lower extremity edema, bilateral lower extremity wounds, covered with dressings, no cyanosis, 2+ pulses and upper and lower extremities. MUSCULOSKELETAL: Muscle strength and tone normal. SPINE: No scoliosis or deformity SKIN: No rashes CENTRAL NERVOUS SYSTEM: Alert and oriented -2. No focal deficits, tone is normal in all 4 extremities. - Labs CBC & Chem 7: 08/19/18 06:01 08/19/18 06:01 Labs: Abnormal Lab Results - Last 24 Hours (Table) 08/19/18 08/19/18 Range/Units 06:01 06:01 RBC 3.22 L (4.30-5.90) m/uL Hgb 10.0 L (13.0-17.5) gm/dL Hct 34.4 L (39.0-53.0) % MCV 106.7 H (80.0-100.0) fL MCHC 29.2 L (31.0-37.0) g/dL RDW 19.6 H (11.5-15.5) % Plt Count 64 L (150-450) k/uL Creatinine 2.50 H (0.66-1.25) mg/dL Phosphorus 5.2 H (2.5-4.5) mg/dL Microbiology - Last 24 Hours (Table) 08/14/18 01:53 Blood Culture - Preliminary Blood No Growth after 120 hours Assessment and Plan Plan: #1 Altered mental status of unclear etiology. Suspect metabolic encephalopathy secondary to suspected sepsis. The source could be related to wounds, urinary tract infection #2 Lactic acidosis contrary to suspected sepsis possibly cellulitis from the lower extremities and coccyx area wounds. #3 Acute hypoxic/hypercapnic respiratory failure secondary to fluid volume overload and possible septic emboli, right pleural effusion with infiltrate. Currently requiring BiPAP support. #4 Cirrhotic of liver with suspicious right hepatic dome mass, suspected hepatocellular carcinoma, with scattered bilateral pulmonary nodules suspicious for diffuse metastatic disease #5 Morbid obesity. #6 Previous history of alcoholism. #7 Anemia secondary to above. #8 Thrombocytopenia secondary to above. #9 Acute on chronic renal failure with end-stage renal disease receiving renal replacement therapy with hemodialysis Thursday. #10 Diabetes mellitus #11 Hypertension, history of. #12 Hyperlipidemia. #13 History of GI bleed and esophageal varices status post banding. Plan: Patient remains extremely generally weak, he has been failing bedside swallow evaluations on a daily basis, he has been nothing by mouth for aspiration precautions, is unable to take deep breaths and clear secretions, his cough is ineffective and weak. Patient has had a very protracted and complicated course of illness since March 2018, been hospitalized at front facilities [facility], and [facility]. His functional capacity is extremely impaired. He has been getting hemodialysis treatments. Bili hemodynamically patient is stable, no fever or chills, culture data is negative to date, ID service is following, patient's antibiotic coverage includes a Unasyn. Medical oncology is following for what appears to be hepatocellular carcinoma with lung metastasis, and recommended hospice because patient is a poor candidate for treatment. At this point a discussion will be held with patient's nephew who is the power of resident care spec, to discuss patient's prognosis, and possible insertion of a PEG tube for nutrition, versus comfort care hospice allowing the patient to eat by mouth for pleasure feeds. Long- term prognosis is poor, and hospice enrollment would be quite reasonable at this time. I performed a history & physical examination of the patient and discussed their management with my nurse practitioner, Erica Wyman. I reviewed the nurse practitioner's note and agree with the documented findings and plan of care. Lung sounds are positive for diffuse rhonchi. The findings and the impression was discussed with the patient. I attest to the documentation by the nurse practitioner. Time with Patient: Greater than 30
--- NOTE | 2018-08-19 11:51 | XR ---
Abdomen HISTORY: Pain Frontal view of the abdomen on 2 images Comparison to chest x-ray same date Patient is rotated. Surgical clips are present in the right groin, postop change noted to the proxima l left femur. Degenerative disc changes in the visualized spine. No evident pneumoperitoneum or bowel obstruction. Entire abdomen not included on the exam. Right lower lobe atelectasis versus pneumonia, effusion note d incidentally. Multiple nodules present in the left lung. IMPRESSION: Metastatic disease. Right lower lobe atelectasis versus possible pneumonia, effusion. Pos top changes. Rotated exam, limitations as described.
[2018-08-19 11:59] LABS: Glucose,Whole Blood 91 mg/dL (75-99)
--- NOTE | 2018-08-19 12:06 | P.PN ---
Subjective Patient is seen in follow-up for acute kidney injury, currently hemodialysis dependent. He tolerated hemodialysis well yesterday. Scheduled to undergo ultrafiltration only treatment today. Remains oliguric. Still quite edematous. Vital signs are stable. General: The patient appeared well nourished and normally developed. HEENT: Head exam is unremarkable. Neck is without jugular venous distension. LUNGS: Breath sounds decreased. HEART: Rate and Rhythm are regular. First and second heart sounds normal. No murmurs, rubs or gallops. ABDOMEN: Abdominal exam reveals normal bowel sounds. Non-tender and non- distended. No evidence of peritonitis. EXTREMITITES: 2+ edema. Objective - Vital Signs Vital signs: Vital Signs Temp 97.5 F L 08/19/18 08:00 Pulse 81 08/19/18 11:01 Resp 12 08/19/18 11:00 BP 110/59 08/19/18 11:00 Pulse Ox 100 08/19/18 11:00 Intake & Output 08/18/18 08/19/18 08/19/18 18:59 06:59 18:59 Intake Total 100 800 300 Output Total 0 0 Balance 100 800 300 Weight 136.3 kg Intake: IV 100 800 300 Ampicillin-Sulbactam 3 gm 100 200 100 In Sodium Chloride 0.9% 100 ml @ 200 mls/hr IVPB Q12HR DANIEL Rx#:[id number] Dextrose 5% in Water 1, 600 200 000 ml @ 50 mls/hr IV . Q20H DANIEL Rx#:[id number] Output: Urine 0 0 Other: Voiding Method Incontinent Incontinent # Bowel Movements 1 ABP, PAP, CO, CI - Last Documented Cardiac Output 6.5 Cardiac Index 2.8 - Labs CBC & Chem 7: 08/19/18 06:01 08/19/18 06:01 Labs: Abnormal Lab Results - Last 24 Hours (Table) 08/19/18 08/19/18 Range/Units 06:01 06:01 RBC 3.22 L (4.30-5.90) m/uL Hgb 10.0 L (13.0-17.5) gm/dL Hct 34.4 L (39.0-53.0) % MCV 106.7 H (80.0-100.0) fL MCHC 29.2 L (31.0-37.0) g/dL RDW 19.6 H (11.5-15.5) % Plt Count 64 L (150-450) k/uL Creatinine 2.50 H (0.66-1.25) mg/dL Phosphorus 5.2 H (2.5-4.5) mg/dL Microbiology - Last 24 Hours (Table) 08/14/18 01:53 Blood Culture - Preliminary Blood No Growth after 120 hours Assessment and Plan Plan: Assessment: 1. Acute kidney injury secondary to ATN, currently hemodialysis dependent. Remains oliguric. 2. Volume overload. Improving with ultrafiltration. 3. Acute hypoxic respiratory failure secondary to volume overload. Better. 4. Liver carcinoma with likely metastatic disease. Multiple bilateral pulmonary nodules noted. 5. Hyperphosphatemia secondary to acute kidney injury. Expect improvement with dialysis. Plan: Ultrafiltration only today. Hemodialysis tomorrow. Nephew to arrive today. Overall prognosis guarded.
--- NOTE | 2018-08-19 12:18 | P.PN ---
Subjective Progress Note Date: 08/19/18 72-year-old gentleman with a past medical history significant for end-stage renal disease on dialysis comes in for altered mental status He's been treated for pneumonia and cellulitis and possibly sepsis secondary to that. Computed tomography scan shows that he is having liver mass and pulmonary nodules possibly metastases. He failed his swallow screen twice and is nothing by mouth for now. He still feeling weak. He is having gurgling sounds in his throat He doesn't complain of any chest pain or racing heart, does complain of right upper quadrant pain. No nausea and vomiting Objective - Vital Signs Vital signs: Vital Signs Temp 97.5 F L 08/19/18 08:00 Pulse 81 08/19/18 11:01 Resp 12 08/19/18 11:00 BP 110/59 08/19/18 11:00 Pulse Ox 100 08/19/18 11:00 Intake & Output 08/18/18 08/19/18 08/19/18 18:59 06:59 18:59 Intake Total 100 800 300 Output Total 0 0 Balance 100 800 300 Weight 136.3 kg Intake: IV 100 800 300 Ampicillin-Sulbactam 3 gm 100 200 100 In Sodium Chloride 0.9% 100 ml @ 200 mls/hr IVPB Q12HR DANIEL Rx#:[id number] Dextrose 5% in Water 1, 600 200 000 ml @ 50 mls/hr IV . Q20H DANIEL Rx#:[id number] Output: Urine 0 0 Other: Voiding Method Incontinent Incontinent # Bowel Movements 1 ABP, PAP, CO, CI - Last Documented Cardiac Output 6.5 Cardiac Index 2.8 - Exam On exam, alert and oriented x3. His lethargic HEENT: Conjunctivae normal. eyes normal. NECK: No JVD. No thyroid enlargement. No LNs CARDIOVASCULAR: S1, S2 heard RESPIRATION: He is having rhonchorous breath sounds. ABDOMEN: Soft, tenderness in the right upper quadrant . No guarding. LEGS: He is having erythema in his legs which is improving slowly and legs are wrapped in dressing NERVOUS SYSTEM: Cranial N 2-12 grossly normal. Moves all 4 limbs. No focal deficits. No sensory deficit. No signs of cerebellar dysfucntion. Skin: no ulcer no rash Joints: No active swelling. No inflammation. Lymphatic system. No LN neck axilla or groin. - Labs CBC & Chem 7: 02/07/19 06:01 08/19/18 06:01 Labs: Abnormal Lab Results - Last 24 Hours (Table) 08/19/18 08/19/18 Range/Units 06:01 06:01 RBC 3.22 L (4.30-5.90) m/uL Hgb 10.0 L (13.0-17.5) gm/dL Hct 34.4 L (39.0-53.0) % MCV 106.7 H (80.0-100.0) fL MCHC 29.2 L (31.0-37.0) g/dL RDW 19.6 H (11.5-15.5) % Plt Count 64 L (150-450) k/uL Creatinine 2.50 H (0.66-1.25) mg/dL Phosphorus 5.2 H (2.5-4.5) mg/dL Microbiology - Last 24 Hours (Table) 08/14/18 01:53 Blood Culture - Preliminary Blood No Growth after 120 hours Assessment and Plan Assessment: - Acute encephalopathy need to rule out the cause- improved - Possible sepsis due to cellulitis in the lower extremities. - Liver mass and pulmonary nodules probably due to cancer - Hypertension - Acute respiratory failure - History of end-stage renal disease on dialysis - Anemia - History of diabetes mellitus - History of hypertension - Hyperlipidemia - History of GI bleed and esophageal paresis status post banding Plan - Admitted to ICU - Fairly solid screen. He is nothing by mouth for now. Is probably aspirating as he has coarse breath sounds. - He is on Unasyn - ICU following the patient - Oncology recommended hospice as the patient is a poor candidate for any cancer treatment. - To discuss with nephew regarding goals of care - Continue the current treatment for now - We'll continue to monitor the patient
[2018-08-19] MEDS: DEXTROSE 5% IN WATER 1,000 ML IV SCH (15:13)
--- NOTE | 2018-08-19 17:57 | XR ---
EXAMINATION TYPE: XR chest 1V portable DATE OF EXAM: 08/19/2018 COMPARISON: Today HISTORY: Check tube placement TECHNIQUE: Single frontal view of the chest is obtained. FINDINGS: There is a nasogastric tube and the tip appears to be in the gastric fundus. There is no c ontrast for verification. There is a right central venous catheter with tip in the superior vena cava . There is pulmonary edema. There is blunting of the right costophrenic angle and large right pleural effusion. IMPRESSION: Congestive heart failure with large right pleural effusion. NG tube tip is probably with in the gastric fundus.
[2018-08-19 18:21] LABS: Glucose,Whole Blood 97 mg/dL (75-99)
[2018-08-19 20:49] LABS: Glucose,Whole Blood 104 mg/dL (75-99)
[2018-08-20 00:16] LABS: Glucose,Whole Blood 95 mg/dL (75-99)
[2018-08-20] MEDS: IPRATROPIUM-ALBUTEROL 3 ML NEB INHALATION SCH ×7 (00:19→23:34)
[2018-08-20 04:00] LABS: Glucose,Whole Blood 106 mg/dL (75-99)
[2018-08-20 06:07] LABS: Anisocytosis Slight; HCT 32.2 % (39.0-53.0); HGB 9.3 gm/dL (13.0-17.5); Hypochromasia Marked; MCH 30.6 pg (25.0-35.0); MCHC 28.9 g/dL (31.0-37.0); MCV 105.9 fL (80.0-100.0); Macrocytosis Marked; Mean Platelet Volume 8.8; RBC 3.05 m/uL (4.30-5.90); RDW 19.8 % (11.5-15.5); WBC 6.1 k/uL (3.8-10.6)
[2018-08-20 06:17] LABS: Calcium 10.6 mg/dL (8.4-10.2); Potassium 4.2 mmol/L (3.5-5.1)
[2018-08-20 06:45] LABS: Platelet Count 57 k/uL (150-450)
--- NOTE | 2018-08-20 07:28 | PN ---
PROGRESS NOTE DATE OF SERVICE: 08/19/2018 REASON FOR FOLLOWUP: Bilateral lower extremity cellulitis. INTERVAL HISTORY: The patient is currently afebrile. He is hemodynamically stable, breathing comfortably. The cough has decreased according to the patient. No abdominal pain or any diarrhea. PHYSICAL EXAMINATION: Blood pressure is 103/60 with a pulse of 80, temperature 98, he is 91% on high-flow oxygen. General description is an elderly male, lying in bed in no distress. RESPIRATORY SYSTEM: Unlabored breathing with decreased breath sounds at the base, no wheeze. HEART: S1, S2. Regular rate and rhythm. ABDOMEN: Soft, no tenderness. Legs are current wrapped, no obvious drainage on the dressing. LABS: Hemoglobin is 10 with a white count 5.7, BUN of 20, creatinine 2.50. DIAGNOSTIC IMPRESSION AND PLAN: Patient with bilateral lower extremity wound with secondary cellulitis. Patient seemed to be clinically improving. Local wound care to continue with Aquacel Silver dressing and Ronaldo wrap along with the IV Unasyn. Continue supportive care. MMODL / IJN: [id number] /
[2018-08-20] MEDS: INSULIN ASPART (NovoLOG) 100 UNIT/ML VIAL SQ SCH ×5 (08:10→23:42)
[2018-08-20] MEDS: MIDODRINE 5 MG TAB PO SCH ×3 (08:15→17:34)
[2018-08-20] MEDS: AMPICILLIN-SULBACTAM 3 GM in SODIUM CHLORIDE 0.9% 100 ML IVPB SCH ×2 (08:18→21:10)
[2018-08-20] MEDS: PANTOPRAZOLE 40 MG/10 ML VIAL IVP SCH (08:18)
[2018-08-20] MEDS: LACTULOSE 20 GM/30 ML CUP PO SCH (08:30)
--- NOTE | 2018-08-20 08:55 | PN ---
PROGRESS NOTE DATE OF SERVICE: 08/19/2018. REASON FOR FOLLOWUP: Bilateral lower extremity cellulitis. INTERVAL HISTORY: The patient is currently afebrile. He is hemodynamically stable. He is breathing comfortably. for nutrition. No abdominal pain or any diarrhea. PHYSICAL EXAMINATION: On examination, blood pressure is 103/60 with a pulse of 85, temperature . He is 91% on high-flow. General description is an elderly male lying in bed in no distress. RESPIRATORY SYSTEM: Unlabored breathing with decreased breath sounds at the bases, no wheeze. HEART: S1, S2, regular rate and rhythm. ABDOMEN: Soft, no tenderness. Legs are currently wrapped up, no obvious drainage on the dressing. LABS: Hemoglobin is 10 with white count 5.7, BUN of 20, creatinine 2.50. DIAGNOSTIC IMPRESSION AND PLAN: Patient with bilateral lower extremity with secondary cellulitis. The patient seemed to be clinically improving. Local wound care to continue with Aquacel Silver dressing and Ronaldo wrap along with the IV Unasyn. Continue with supportive care. MMODL / IJN: [id number] /
[2018-08-20 09:19] LABS: Glucose,Whole Blood 105 mg/dL (75-99)
[2018-08-20] MEDS: DEXTROSE 5% IN WATER 1,000 ML IV SCH (11:40)
--- NOTE | 2018-08-20 11:40 | P.PN ---
Subjective Progress Note Date: 08/20/18 Principal diagnosis: Altered mental status secondary to acute sepsis with acute hypoxic/hypercapnic respiratory failure. Altered mental status, lactic acidosis, suspect sepsis, acute hypoxic/ hypercapnic respiratory failure, hepatocellular carcinoma with metastases This is a 72-year-old gentleman who follows with Dr. Hayden as his primary care physician. He has a history of end-stage renal disease receiving hemodialysis on Thursday, previous alcohol abuse, previous GI bleeding, hypertension, hyperlipidemia, diabetes mellitus. He was transferred here to the regular medical floor from [facility] yesterday due to altered mental status. He was found to have a fever of unknown origin and elevated ammonia levels. He subsequently developed hypotension and respiratory distress and an A team was called and he was transferred here to the intensive care unit. He is seen today in consultation. He is currently on BiPAP 14/5 and 50% FiO2 to maintain O2 saturations in the 90s. He is currently quite weak and obtunded. Difficult to arouse. He currently has a 0.9 normal saline at 100 MLS per hour. No urine output currently. Chest x-ray shows evidence of cardiomegaly with moderate size right pleural effusion and associated right basilar atelectasis and/or infiltrate. Reticular nodular opacities bilaterally possibly reflecting diffuse edema and/or infiltrates but nodularity is concerning. Metastatic disease and septic emboli air in the differential. White count 4.8. Hemoglobin 9.2. Platelet count 100,000 and creatinine 2.05. Initial lactic acid 2.4 currently 2.1. Current ammonia level 27. He did receive lactulose. He does have multiple open wounds on the lower extremities and sacral area. He'll be initiated on Unasyn. On 08/15/2018 patient seen in follow-up in the intensive care unit. He is awake and alert, oriented 2, to person and place, extremely weak, he had been on BiPAP with pressures of 14 and 5 and FiO2 of 50%, and he has been given a trial of nasal cannula, and is currently on 15 L high flow. No fever, no chills , hemodynamically patient is stable, IV fluids 0.9 normal saline at a rate of 100 ML per hour, no other drips. CT chest was done yesterday, and showed a spec cirrhotic liver with suspicious right hepatic dome mass, possible hepatocellular carcinoma, hepatosplenomegaly with mild surrounding ascites. There were scattered bilateral pulmonary nodules suspicious for diffuse metastatic disease, small right pleural fluid collection. Patient had elevated ammonia, and bilateral lower extremity wound infections. Blood and urine cultures show no growth to date. Final cultures are pending, patient was fluid resuscitated, his blood pressures have improved, today's lab work shows white blood cell count of 4.2, hemoglobin of 9.2, serum sodium is 138, potassium is 3.4, chloride is 104, B1 is 27 and creatinine is 2.54. Nephrology is following , hemodialysis had been held in view of patient's hypotension, patient is on Midrin. And his extremely weak, has a weak congested nonproductive cough. Lung sounds are positive for diffuse rhonchi. Abdomen is obese, but nontender and soft. There is lower extremity edema, lower extremities are wrapped with dressings. ID service is following, and current antibiotic coverage includes Unasyn. We'll status has been discussed with the patient, patient's CODE STATUS is DO NOT RESUSCITATE. On 08/16/2098 seeing this patient for a follow-up. His condition is essentially unchanged. He is doing poorly. He seems to be more so BiPAP dependent and BiPAP was restarted at a pressure of 14/5 cm of water with an FiO2 of 50%. The patient was unable to tolerate the high flow oxygen. Meanwhile, I reviewed his CAT scan of the chest and there is obviously metastatic pulmonary deposits which makes me think that is very much likely the patient has metastatic liver cancer, probably of a hepatocellular carcinoma type knowing that his previous alpha fetoprotein level was quite elevated and this was from 2016. A repeat FLP total protein level will be obtained. Meanwhile, the patient chest x-ray from today shows stable consolidation and pleural effusion and increased interstitial markings bilaterally. There is also small and multiple pulmonary nodules consistent with metastases. The patient was also started hemodialysis regarding an acute kidney injury. He is receiving hemodialysis Thursday and Thursday. He has some signs of volume overload. This is supposed improved with hemodialysis. Davies catheter has been removed this morning. No fever. No chills. No hematemesis. He is quite lethargic and his C-reactive significant amount of motor weakness related to his above-mentioned comorbidities. There may be an underlying component of encephalopathy knowing that the patient's ammonia level was also elevated. He is currently on lactulose 20 mg 3 times a day. He is on midodrine for blood pressure control. IV antibiotics with Unasyn On 08/17/2018, I'm seeing this patient for a follow-up. Patient is still in intensive care unit. The patient underwent dialysis yesterday and another session of ultrafiltration with him today. The patient's overall pulmonary status is stable. The patient is currently off the BiPAP. Chest x-ray findings essentially unchanged. There is pleural effusion on the right along with hepatomegaly and elevation of the right hemidiaphragm and the patient has multiple bilateral pulmonary nodules more so on the left consistent with metastatic disease. The repeat alpha-fetoprotein level is still pending for now. The overall picture is consistent with metastatic hepatocellular carcinoma. The patient also has an incisional disease and currently is on hemodialysis. He is weak. A swallow evaluation was done today and I would suggest repeating a swallow evaluation knowing that the patient is able to swallow contrary to the recommendations made by the speech pathologist. The patient is taking lactulose. Is having adequate bowel movements. Lactulose and those has been drop to once a day. The patient is on IV Unasyn as an empiric antibiotic coverage. The patient is on no pressors for now. Mental status is adequate. The patient is able to follow some simple commands and answers some simple questions. No signs of any apparent respiratory distress at this point in time. No fever. No chills. No aspiration. No leukocytosis. He was stable at 9.5. Creatinine is down to 2.49 as the patient underwent dialysis yesterday. CODE STATUS is DO NOT RESUSCITATE The patient is seen today 08/18/2017 in follow-up in the intensive care unit. He is currently undergoing hemodialysis. He is currently awake and alert. His voice is quite weak and soft. He did not pass a swallow evaluation. There is concern regarding continued microaspiration. He is currently afebrile. Maintaining O2 saturations in the upper 90s on 4 L high flow nasal cannula. He is hemodynamically stable. Blood cultures reveal no growth. Urine culture reveals no growth. White count 4.7. Hemoglobin 9.5. Creatinine 3.15. He remains on Unasyn. Today's chest x-ray shows suspected progression of airspace disease/pulmonary edema/fluid volume overload. On 08/19/2018 patient seen in follow-up in intensive care unit, he is awake, alert, oriented to person and place. Remains extremely generally weak, cough is congested, and nonproductive, patient is not able to clear any phlegm. Sounds are positive for diffuse rhonchi throughout. He is currently on 8 L per nasal cannula, and his taxes 95-98%, afebrile, hemodynamically patient is stable , IV fluids include D5 W at a rate of 50 ML per hour. Patient has had a daily bedside swallow evaluation, and patient has been failing swallow evaluations on the daily basis. Patient is on nebulized bronchodilators, he is receiving lactulose, and his ammonia level this morning is less than 9. Antibiotic coverage includes Unasyn, his cultures have been negative. No fever or chills. Medical oncology is following, patient's alpha-fetoprotein levels came back greater than 100,000, and CT chest showed right hepatic dome mass worrisome for hepatocellular carcinoma, and hepatosplenomegaly, with surrounding ascites, scattered bilateral pulmonary nodules suspicious for diffuse metastatic disease. Patient functional that his is extremely debilitated, patient has been hospitalized between different facilities in [facility] since March 2018, has had a very complicated protracted downward health trend. CODE STATUS is DO NOT RESUSCITATE, in view of patient's impaired ability to swallow, a decision needs to be made whether patient's family was to proceed with PEG tube placement and consider palliative care/comfort care. Patient has had daily dialysis. No new chest x-ray today, yesterday chest x- ray showed pulmonary edema and volume overload. Today's labs showed a white blood cell count of 5.7, hemoglobin 10.0, electrolytes were within normal limits , BUN is 20 and creatinine was 2.5, nephrology is following. The patient is seen again today 08/20/2018 in follow-up in the intensive care unit. He remains awake and alert. His voice is still quite soft and weak. He has not passed any swallow evaluations thus far. He is going down again for a barium swallow today. A Dobbhoff tube was inserted yesterday. He has been initiated on Nepro and free water flushes. His oxygen requirements have gone up in the past 24 hours. Currently on 10 L high flow nasal cannula to maintain O2 saturations in the low 90s. He's been afebrile. Hemodynamically stable. A culture reveals no growth. Urine culture reveals no growth. White count 6.1. Hemoglobin 9.3. Creatinine 3.04. Yesterday's chest x-ray revealed congestive heart failure with a right pleural effusion. He remains on bronchodilators and Unasyn. He remains overall quite weak. He is receiving hemodialysis again today. Objective - Vital Signs Vital signs: Vital Signs Temp 97.4 F L 08/20/18 08:00 Pulse 90 08/20/18 09:00 Resp 22 08/20/18 09:00 BP 126/80 08/20/18 09:00 Pulse Ox 90 L 08/20/18 09:00 Intake & Output 08/19/18 08/20/18 08/20/18 18:59 06:59 18:59 Intake Total 650 700 250 Balance 650 700 250 Weight 134.6 kg 134.6 kg Intake: IV 650 700 250 Ampicillin-Sulbactam 3 gm 100 100 100 In Sodium Chloride 0.9% 100 ml @ 200 mls/hr IVPB Q12HR DANIEL Rx#:[id number] Dextrose 5% in Water 1, 550 600 150 000 ml @ 50 mls/hr IV . Q20H DANIEL Rx#:[id number] Other: Voiding Method Incontinent Incontinent Incontinent ABP, PAP, CO, CI - Last Documented Cardiac Output 6.5 Cardiac Index 2.8 - Exam GENERAL EXAM: Alert, 72-year-old obese white male, very debilitated and weak. Currently on 10 L high flow nasal cannula. HEAD: Normocephalic/atraumatic. EYES: Normal reaction of pupils, equal size. Conjunctiva pink, sclera white. NOSE: Clear with pink turbinates. THROAT: No erythema or exudates. Voices very weak and soft. NECK: No masses, no JVD, no thyroid enlargement, no adenopathy. CHEST: No chest wall deformity. Symmetrical expansion. LUNGS: Equal air entry with diffuse rhonchi, patient has a weak nonproductive congested cough CVS: Regular rate and rhythm, normal S1 and S2, no gallops, no murmurs, no rubs ABDOMEN: Soft, nontender. No hepatosplenomegaly, normal bowel sounds, no guarding or rigidity. EXTREMITIES: No clubbing, 2+ lower extremity edema, bilateral lower extremity wounds, covered with dressings, no cyanosis, 2+ pulses and upper and lower extremities. Extremity edema is improving as the patient is undergoing dialysis with ultrafiltration. MUSCULOSKELETAL: Muscle strength and tone extremely weak. SPINE: No scoliosis or deformity SKIN: No rashes CENTRAL NERVOUS SYSTEM: Alert and oriented -2. No focal deficits, tone is normal in all 4 extremities, however there is considerable amount of motor weakness in all 4 extremities. - Labs CBC & Chem 7: 08/20/18 05:10 08/20/18 05:10 Labs: Abnormal Lab Results - Last 24 Hours (Table) 08/19/18 08/20/18 08/20/18 Range/Units 20:37 03:48 05:10 RBC 3.05 L (4.30-5.90) m/uL Hgb 9.3 L (13.0-17.5) gm/dL Hct 32.2 L (39.0-53.0) % MCV 105.9 H (80.0-100.0) fL MCHC 28.9 L (31.0-37.0) g/dL RDW 19.8 H (11.5-15.5) % Plt Count 57 L (150-450) k/uL BUN (9-20) mg/dL Creatinine (0.66-1.25) mg/dL Glucose (74-99) mg/dL POC Glucose (mg/dL) 104 H 106 H (75-99) mg/dL Calcium (8.4-10.2) mg/dL Phosphorus (2.5-4.5) mg/dL 08/20/18 08/20/18 Range/Units 05:10 09:08 RBC (4.30-5.90) m/uL Hgb (13.0-17.5) gm/dL Hct (39.0-53.0) % MCV (80.0-100.0) fL MCHC (31.0-37.0) g/dL RDW (11.5-15.5) % Plt Count (150-450) k/uL BUN 25 H (9-20) mg/dL Creatinine 3.04 H (0.66-1.25) mg/dL Glucose 101 H (74-99) mg/dL POC Glucose (mg/dL) 105 H (75-99) mg/dL Calcium 10.6 H (8.4-10.2) mg/dL Phosphorus 6.0 H (2.5-4.5) mg/dL Microbiology - Last 24 Hours (Table) 08/14/18 01:53 Blood Culture - Final Blood No Growth after 144 hours Assessment and Plan Assessment: Impression: #1 Altered mental status of unclear etiology. Suspect metabolic/hepatic encephalopathy secondary to suspected sepsis. Improved with lactulose. #2 Lactic acidosis contrary to suspected sepsis possibly cellulitis from the lower extremities and coccyx area wounds. Remains on Unasyn. #3 Acute hypoxic/hypercapnic respiratory failure secondary to fluid volume overload, right pleural effusion with infiltrate. Improved and weaned down to 4 L high flow nasal cannula. #4 Morbid obesity. #5 Chronic Liver with Suspicious Right Hepatic Dome Mass, Suspected Hepatocellular Carcinoma, Multiple Bilateral Pulmonary Nodules Suspicious for Diffuse Metastatic Disease. Alpha-Fetoprotein Levels Elevated. #6 Anemia secondary to above. #7 Thrombocytopenia secondary to above. #8 Acute on chronic renal failure with end-stage renal disease receiving renal replacement therapy with hemodialysis Thursday. #9 Diabetes mellitus #10 Hypertension, history of. #11 Hyperlipidemia. #12 History of GI bleed and esophageal varices status post banding. Plan: The patient was seen and evaluated by Dr. Gordon. The patient has been slow to progress. Barium swallow planned for this morning. The patient is a DO NOT RESUSCITATE/DO NOT INTUBATE. Oncology has seen the patient and his overall prognosis remains quite poor based on his multiple comorbidities. Not likely to be a treatment candidate. He may benefit from a hospice/comfort care consult once the family agrees. Dr. Gordon has been speaking with them daily. We will continue to follow and make further recommendations based on his clinical status. I, the cosigning physician, performed a history & physical examination of the patient. Lungs sounds with few scattered rhonchi, crackles in the right posterior base, diminished. Maintaining good O2 saturations in the 90s on 4 L high flow nasal cannula %. I discussed the assessment and plan of care with my nurse practitioner, Estrellita Sinha. I attest to the above note as dictated by her.
[2018-08-20 11:49] LABS: Glucose,Whole Blood 88 mg/dL (75-99)
--- NOTE | 2018-08-20 12:58 | PN ---
PROGRESS NOTE Patient is seen for followup for dialysis dependent renal failure. Patient is maintained on a Thursday, Thursday, Thursday schedule. However, he has been getting daily dialysis, mainly for fluid overload. He is currently seen on dialysis, tolerating his treatment well. Patient is awake. He has an NG tube in place as he is not able to swallow. However, he is going down for a repeat swallowing study this morning. PHYSICAL EXAMINATION: This morning blood pressure was 88/66, heart rate 94 per minute, patient is afebrile. Examination of the heart, S1, S2. Examination of the lungs, bilateral breath sounds are heard. Abdomen is soft, nontender, obese. Examination of the lower extremities shows chronic skin changes, chronic edema bilaterally. [employer] exam shows patient moving all 4 extremities. LABS: Show sodium 137, potassium 4.2, BUN of 25, serum creatinine 3.04, phosphorus was 6.0, calcium at 10.6. ASSESSMENT: 1. Acute kidney injury. Hemodialysis dependent. Currently oliguric, maintained on daily dialysis mainly for fluid overload. Will plan to dialyze again tomorrow. 2. Fluid overload, slowly improving. 3. Bilateral lower extremity cellulitis, maintained on antibiotics. 4. Mild hypercalcemia, currently not on any calcium supplements. We will decrease the calcium bath with dialysis and check a PTH level and vitamin D level. Patient does have underlying liver cancer with metastatic disease, which is also contributing to the hypercalcemia. 5. Acute hypoxic respiratory failure, secondary to volume overload. 6. Hyperphosphatemia. Will start phosphate binders. PLAN: Add Renvela. We will repeat hemodialysis in a.m. Low calcium bath with dialysis. Check PTH level and start Sensipar if PTH is elevated. Overall prognosis is guarded. MMODL / IJN: [id number] /
--- NOTE | 2018-08-20 14:01 | FL ---
EXAMINATION TYPE: FL barium swallow w video DATE OF EXAM: 08/20/2018 MODIFIED SWALLOW / DEGLUTITION STUDY CLINICAL HISTORY: Dysphagia. TECHNIQUE: Deglutition study is performed utilizing thin liquid barium, honey and nectar thick liqui d barium and barium thick pudding. COMPARISON: None. FINDINGS: Exam is nondiagnostic with thin barium as the exam is overall suboptimal due to unavoidable patient positioning despite multiple attempts and repositioning. The oral and pharyngeal phases show delayed initiation and poor bolus formation modalities tested. Tr sher penetration is suspected with the nectar thick consistency. There is no son evidence of penetr ation or aspiration with any modality tested. No significant pharyngeal residue was appreciated. IMPRESSION: Trace penetration suspected with the nectar thick consistency and nondiagnostic exam with the thin barium consistency secondary to unavoidable suboptimal patient positioning. Please refer t o speech therapist notes for further details if necessary.
[2018-08-20] MEDS: CINACALCET 30 MG TAB PO SCH (15:10)
--- NOTE | 2018-08-20 16:04 | P.NPCON ---
History of Present Illness - Reason for Consult Consult date: 08/14/18 (copied from old note as it was in neurology format.) - History of Present Illness *Live* [address] [address] Neurology - Consult Note Patient Name: Dillon Morales Date of : 1945 Patient Status: Inpatient Attending Provider: Brandee Thrasher Date: 08/14/18 10:13 Initialization Date: 08/14/18 10:13 History of Present Illness Consult date: 08/14/18 Chief complaint: Altered mental status, transferred from [facility] History of Present Illness: Gentleman from [facility] currently on dialysis via right jugular permacath, unclear how long. As per paper chart started somewhere end of June 2018 and July 2018. Unable to provide any history currently on BiPAP. Hypotensive with systolics in 80s to 90s. He has elevated ammonia and wound infections. Started on antibiotics in ICU currently not on pressors. 15 mL of urine output since last night via Davies catheter. Chest x-ray shows right pleural effusion with pneumonia versus septic emboli. He takes midodrine at home. Review of Systems ROS unobtainable: due to mental status (Unable to obtain at this point) Past Medical History Past Medical History: Diabetes Mellitus, Eye Disorder, GERD/Reflux, GI Bleed, Hyperlipidemia, Hypertension, Osteoarthritis (OA), Skin Disorder Additional Past Medical History / Comment(s): HX GI BLEEDING. esophageal varicies History of Any Multi-Drug Resistant Organisms: None Reported Past Surgical History: Cholecystectomy, Heart Catheterization, Orthopedic Surgery, Tonsillectomy Additional Past Surgical History / Comment(s): colonoscopy, right kneerepair 3, . esophoheal varicies banding Past Anesthesia/Blood Transfusion Reactions: No Reported Reaction Smoking Status: Never smoker - Past Family History Mother Family Medical History: Hypertension, Myocardial Infarction ([place]) Father Family Medical History: Hypertension, Myocardial Infarction ([place]) Medications and Allergies Home Medications Medication Instructions Recorded Confirmed Type Acetaminophen Tab [Tylenol] 650 mg PO TID PRN 08/13/18 08/13/18 History Ergocalciferol (Vitamin D2) 50,000 unit PO Q7DAYS 08/13/18 08/13/18 History [Drisdol] Famotidine [Pepcid] 20 mg PO HS 08/13/18 08/13/18 History HYDROcodone/APAP 5-325MG [Olivet 1 tab PO DIRECTED 08/13/18 08/13/18 History 5-325] Midodrine HCl [ProAmatine] 10 mg PO MOWEFR 08/13/18 08/13/18 History Nystatin 100,000Unit/gm Cream 1 applic TOPICAL DIRECTED 08/13/18 08/13/18 History [Mycostatin Cream] Petrolatum, White [Aquaphor] 1 applic TOPICAL DAILY 08/13/18 08/13/18 History Pravastatin Sodium [Pravachol] 40 mg PO HS 08/13/18 08/13/18 History Propranolol HCl [Inderal] 60 mg PO TID 08/13/18 08/13/18 History Simethicone 80 mg PO Q6HR 08/13/18 08/13/18 History guaiFENesin [Diabetic Tussin Ex] 200 mg PO Q4HR PRN 08/13/18 08/13/18 History Allergies Allergy/AdvReac Type Severity Reaction Status Date / Time No Known Allergies Allergy Verified 08/13/18 23:37 Physical Examination - Vital Signs Vital Signs: Vital Signs Temp Pulse Pulse Resp BP BP Pulse Ox 08/14/18 09:30 54 L 8 L 103/91 98 08/14/18 09:00 55 L 11 L 83/42 94 L 08/14/18 08:30 55 L 11 L 86/52 96 08/14/18 08:01 97.5 F L 56 L 11 L 81/45 92 L 08/14/18 07:30 53 L 9 L 87/42 95 08/14/18 06:00 56 L 16 90/50 93 L 08/14/18 05:30 56 L 14 91/44 93 L 08/14/18 05:00 56 L 14 86/45 94 L 08/14/18 04:46 53 L 14 78/38 93 L 08/14/18 04:00 97.8 F 57 L 14 86/42 94 L 08/14/18 03:30 56 L 14 78/58 93 L 08/14/18 03:00 57 L 14 80/48 99 08/14/18 02:30 60 14 87/48 94 L 08/14/18 02:15 97.7 F 61 16 86/56 89 L 08/14/18 00:33 60 15 102/46 94 L 08/13/18 23:38 62 21 96/42 96 08/13/18 23:00 63 21 91/57 92 L 08/13/18 22:35 61 18 88/51 93 L 08/13/18 22:12 98.2 F 63 20 109/79 98 Intake and Output 08/13/18 08/14/18 08/14/18 22:59 06:59 14:59 Intake Total 1200 300 Output Total 0 15 Balance 1200 285 Intake: IV 100 Sodium Chloride 0.9% 1, 100 000 ml @ 100 mls/hr IV . Q10H [facility] Rx#:[id number] Intake, IV Titration 1200 200 Amount Sodium Chloride 0.9% 1, 200 200 000 ml @ 100 mls/hr IV . Q10H [facility] Rx#:[id number] Sodium Chloride 0.9% 1, 1000 000 ml @ 999 mls/hr IV . Q1H1M [facility] Rx#:[id number] Output: Urine 0 15 Stool 0 Other: Voiding Method Indwelling Catheter Weight 127.006 kg No acute distress Right jugular permacath S1-S2 heard Diminished breath sounds Edema. Results - Laboratory Findings CBC and BMP: 08/14/18 07:55 08/14/18 07:55 Abnormal Lab Findings: Abnormal Labs 08/14/18 08/14/18 08/14/18 01:38 01:47 01:53 RBC 3.00 L Hgb 9.2 L Hct 31.8 L MCV 105.8 H MCHC 29.1 L RDW 19.6 H Plt Count 100 L Lymphocytes # (Manual) 0.91 L Nucleated RBCs 1 H ABG pH 7.32 L ABG pCO2 62 H ABG pO2 67 L ABG HCO3 32 H ABG Total CO2 34 H ABG O2 Saturation 93.1 L BUN Creatinine Glucose POC Glucose (mg/dL) 108 H Plasma Lactic Acid Lucio Phosphorus AST Alkaline Phosphatase Albumin 08/14/18 08/14/18 08/14/18 01:53 01:53 05:51 RBC Hgb Hct MCV MCHC RDW Plt Count Lymphocytes # (Manual) Nucleated RBCs ABG pH ABG pCO2 ABG pO2 ABG HCO3 ABG Total CO2 ABG O2 Saturation BUN Creatinine 2.05 H Glucose 113 H POC Glucose (mg/dL) Plasma Lactic Acid Lucio 2.4 H* 2.1 H* Phosphorus 4.7 H AST 94 H Alkaline Phosphatase 252 H Albumin 2.5 L 08/14/18 08/14/18 07:55 07:55 RBC 2.99 L Hgb 9.0 L Hct 31.1 L MCV 104.1 H MCHC 28.9 L RDW 19.5 H Plt Count Lymphocytes # (Manual) Nucleated RBCs ABG pH ABG pCO2 ABG pO2 ABG HCO3 ABG Total CO2 ABG O2 Saturation BUN 21 H Creatinine 2.16 H Glucose 103 H POC Glucose (mg/dL) Plasma Lactic Acid Lucio Phosphorus 5.0 H AST Alkaline Phosphatase Albumin Assessment and Plan Assessment: #1 encephalopathy suspected sepsis and hypotension. #2 ESRD/HERMELINDO on HD, unclear based on the paper chart. #3 severe sepsis with marginal blood pressures. #4 pleural effusion with septic emboli #5 anemia #6 edema Plan: #1 no acute indication for hemodialysis today. Agree with IV fluids for now. #[address] chest with contrast. #3 antibiotics per primary team #4 restart midodrine #5 prognosis guarded with multiple comorbid conditions. Past Medical History Past Medical History: Diabetes Mellitus, Eye Disorder, GERD/Reflux, GI Bleed, Hyperlipidemia, Hypertension, Osteoarthritis (OA), Skin Disorder Additional Past Medical History / Comment(s): HX GI BLEEDING. esophageal varicies History of Any Multi-Drug Resistant Organisms: None Reported Past Surgical History: Cholecystectomy, Heart Catheterization, Orthopedic Surgery, Tonsillectomy Additional Past Surgical History / Comment(s): colonoscopy, right kneerepair 3, . esophoheal varicies banding Past Anesthesia/Blood Transfusion Reactions: No Reported Reaction Past Psychological History: No Psychological Hx Reported Smoking Status: Never smoker Past Alcohol Use History: None Reported Past Drug Use History: None Reported - Past Family History Mother Family Medical History: Hypertension, Myocardial Infarction ([place]) Father Family Medical History: Hypertension, Myocardial Infarction ([place]) Medications and Allergies Home Medications Medication Instructions Recorded Confirmed Type Acetaminophen Tab [Tylenol] 650 mg PO TID PRN 08/13/18 08/13/18 History Ergocalciferol (Vitamin D2) 50,000 unit PO Q7DAYS 08/13/18 08/13/18 History [Drisdol] Famotidine [Pepcid] 20 mg PO HS 08/13/18 08/13/18 History HYDROcodone/APAP 5-325MG [Olivet 1 tab PO DIRECTED 08/13/18 08/13/18 History 5-325] Midodrine HCl [ProAmatine] 10 mg PO MOWEFR 08/13/18 08/13/18 History Nystatin 100,000Unit/gm Cream 1 applic TOPICAL DIRECTED 08/13/18 08/13/18 History [Mycostatin Cream] Petrolatum, White [Aquaphor] 1 applic TOPICAL DAILY 08/13/18 08/13/18 History Pravastatin Sodium [Pravachol] 40 mg PO HS 08/13/18 08/13/18 History Propranolol HCl [Inderal] 60 mg PO TID 08/13/18 08/13/18 History Simethicone 80 mg PO Q6HR 08/13/18 08/13/18 History guaiFENesin [Diabetic Tussin Ex] 200 mg PO Q4HR PRN 08/13/18 08/13/18 History Allergies Allergy/AdvReac Type Severity Reaction Status Date / Time No Known Allergies Allergy Verified 08/13/18 23:37 Physical Exam Vitals: Vital Signs Temp Pulse Resp BP Pulse Ox 08/20/18 15:00 96 11 L 116/75 93 L 08/20/18 14:00 105 H 20 128/76 90 L 08/20/18 13:00 101 H 21 129/78 93 L 08/20/18 12:05 91 08/20/18 12:00 97.4 F L 91 16 116/81 97 08/20/18 11:52 93 08/20/18 11:00 94 18 88/66 92 L 08/20/18 10:00 90 14 91/65 92 L 08/20/18 09:00 90 22 126/80 90 L 08/20/18 08:16 89 08/20/18 08:02 92 08/20/18 08:00 97.4 F L 90 20 131/79 91 L 08/20/18 07:00 89 11 L 128/71 93 L 08/20/18 06:00 86 11 L 129/76 93 L 08/20/18 05:00 91 14 126/74 91 L 08/20/18 04:03 84 08/20/18 04:00 97.7 F 87 10 L 132/71 98 08/20/18 03:52 95 08/20/18 03:51 86 08/20/18 03:00 87 11 L 123/76 96 08/20/18 02:00 89 16 125/81 95 08/20/18 01:00 87 25 H 117/73 96 08/20/18 00:34 81 08/20/18 00:22 82 08/20/18 00:14 85 13 117/73 93 L 08/20/18 00:00 97.7 F 84 19 125/65 93 L 08/19/18 23:00 85 11 L 96/70 94 L 08/19/18 22:00 85 14 103/60 91 L 08/19/18 21:00 87 14 103/60 92 L 08/19/18 20:00 85 13 106/64 95 08/19/18 19:15 85 08/19/18 19:07 86 08/19/18 19:00 85 15 109/68 93 L 08/19/18 18:00 89 14 112/64 88 L 08/19/18 17:00 76 12 108/61 94 L Intake and Output 08/20/18 08/20/18 08/20/18 06:59 14:59 22:59 Intake Total 400 500 50 Balance 400 500 50 Intake: IV 400 500 50 Ampicillin-Sulbactam 3 gm 100 In Sodium Chloride 0.9% 100 ml @ 200 mls/hr IVPB Q12HR [facility] Rx#:[id number] Dextrose 5% in Water 1, 400 400 50 000 ml @ 50 mls/hr IV . Q20H [facility] Rx#:[id number] Other: Voiding Method Incontinent Incontinent Weight 134.6 kg 134.6 kg Results - Lab Results Most recent lab results ABG pH 7.32 (7.35-7.45) L 08/14/18 01:47 ABG pCO2 62 mmHg (35-45) H 08/14/18 01:47 ABG pO2 67 mmHg (83-108) L 08/14/18 01:47 ABG HCO3 32 mmol/L (21-25) H 08/14/18 01:47 ABG O2 Saturation 93.1 % (94-97) L 08/14/18 01:47 Calcium 10.6 mg/dL (8.4-10.2) H 08/20/18 05:10 Phosphorus 6.0 mg/dL (2.5-4.5) H 08/20/18 05:10 Magnesium 2.0 mg/dL (1.6-2.3) 08/20/18 05:10 08/20/18 05:10 08/20/18 05:10
[2018-08-20 16:09] LABS: Glucose,Whole Blood 96 mg/dL (75-99)
[2018-08-20] MEDS: SEVELAMER 800 MG TAB PO SCH (17:34)
--- NOTE | 2018-08-20 19:04 | P.PN ---
Subjective 72-year-old gentleman with a past medical history significant for end-stage renal disease on dialysis comes in for altered mental status He's been treated for pneumonia and cellulitis and possibly sepsis secondary to that. Computed tomography scan shows that he is having liver mass and pulmonary nodules possibly metastases. He failed his swallow screen twice and is nothing by mouth for now. 08/19 He still feeling weak. He is having gurgling sounds in his throat He doesn't complain of any chest pain or racing heart, does complain of right upper quadrant pain. No nausea and vomiting 08/20 Pt awake today Is NPO now as he failed swallow screen repeatedly. One for a repeat swa;llow study today again seems to be feeling weak says abd pain better Objective - Vital Signs Vital signs: Vital Signs Temp 98.4 F 08/20/18 16:00 Pulse 97 08/20/18 18:00 Resp 20 08/20/18 18:00 BP 124/80 08/20/18 18:00 Pulse Ox 92 L 08/20/18 18:00 Intake & Output 08/19/18 08/20/18 08/20/18 18:59 06:59 18:59 Intake Total 650 700 790 Balance 650 700 790 Weight 134.6 kg 134.6 kg Intake: IV 650 700 700 Ampicillin-Sulbactam 3 gm 100 100 100 In Sodium Chloride 0.9% 100 ml @ 200 mls/hr IVPB Q12HR [facility] Rx#:[id number] Dextrose 5% in Water 1, 550 600 600 000 ml @ 50 mls/hr IV . Q20H [facility] Rx#:[id number] Tube Feeding 60 Other 30 Other: Voiding Method Incontinent Incontinent Incontinent # Bowel Movements 1 ABP, PAP, CO, CI - Last Documented Cardiac Output 6.5 Cardiac Index 2.8 - Exam On exam, alert and oriented x3. His lethargic HEENT: Conjunctivae normal. eyes normal. NECK: No JVD. No thyroid enlargement. No LNs CARDIOVASCULAR: S1, S2 heard RESPIRATION: He is having rhonchorous breath sounds. ABDOMEN: Soft, says no abd pain today . No guarding. LEGS: He is having erythema in his legs which is improving slowly and legs are wrapped in dressing NERVOUS SYSTEM: Cranial N 2-12 grossly normal. Moves all 4 limbs. No focal deficits. No sensory deficit. No signs of cerebellar dysfucntion. Skin: no ulcer no rash Joints: No active swelling. No inflammation. - Labs CBC & Chem 7: 08/20/18 05:10 08/20/18 05:10 Labs: Abnormal Lab Results - Last 24 Hours (Table) 08/19/18 08/20/18 08/20/18 Range/Units 20:37 03:48 05:10 RBC 3.05 L (4.30-5.90) m/uL Hgb 9.3 L (13.0-17.5) gm/dL Hct 32.2 L (39.0-53.0) % MCV 105.9 H (80.0-100.0) fL MCHC 28.9 L (31.0-37.0) g/dL RDW 19.8 H (11.5-15.5) % Plt Count 57 L (150-450) k/uL BUN (9-20) mg/dL Creatinine (0.66-1.25) mg/dL Glucose (74-99) mg/dL POC Glucose (mg/dL) 104 H 106 H (75-99) mg/dL Calcium (8.4-10.2) mg/dL Phosphorus (2.5-4.5) mg/dL 08/20/18 08/20/18 Range/Units 05:10 09:08 RBC (4.30-5.90) m/uL Hgb (13.0-17.5) gm/dL Hct (39.0-53.0) % MCV (80.0-100.0) fL MCHC (31.0-37.0) g/dL RDW (11.5-15.5) % Plt Count (150-450) k/uL BUN 25 H (9-20) mg/dL Creatinine 3.04 H (0.66-1.25) mg/dL Glucose 101 H (74-99) mg/dL POC Glucose (mg/dL) 105 H (75-99) mg/dL Calcium 10.6 H (8.4-10.2) mg/dL Phosphorus 6.0 H (2.5-4.5) mg/dL Microbiology - Last 24 Hours (Table) 08/14/18 01:53 Blood Culture - Final Blood No Growth after 144 hours Assessment and Plan Assessment: - Acute encephalopathy need to rule out the cause- improved - Possible sepsis due to cellulitis in the lower extremities. - Liver mass and pulmonary nodules probably due to cancer - Hypertension - Acute respiratory failure - History of end-stage renal disease on dialysis - Anemia - History of diabetes mellitus - History of hypertension - Hyperlipidemia - History of GI bleed and esophageal paresis status post banding Plan - Admitted to ICU - Failed swallow screen previously. Going for repaet swallow screen today - ICU following the patient. - Hem/onc following the paltient. Not a good candidate for any treatment as he has multiple comorbidities. - HD as per Nephro - Comfort /hospice care remommended. Nephew is the DPOA - Will follow up Time with Patient: Greater than 30
[2018-08-20 21:22] LABS: Glucose,Whole Blood 111 mg/dL (75-99)
[2018-08-20 23:24] LABS: Glucose,Whole Blood 111 mg/dL (75-99)
--- NOTE | 2018-08-20 23:57 | PN ---
PROGRESS NOTE DATE OF SERVICE: 08/20/2018. REASON FOR FOLLOW UP: Bilateral lower extremity venous stasis ulcer cellulitis. INTERVAL HISTORY: The patient is currently afebrile. He is breathing more comfortably. Denies having any chest pain or any cough. He is more awake, alert, with abdominal pain. No diarrhea. He had a pressure 128/72 with a pulse of 96, temperature 98. He is 90% GENERAL DESCRIPTION is an elderly male lying in bed in no distress. Respiratory system: Unlabored breathing with decreased breath sounds in the bases. No wheeze. Heart S1, S2. Regular rate abdomen soft no tenderness. LABS: Hemoglobin 9.1, white count 6.8 with hematocrit of 10.2 with a creatinine of 3.404. DIAGNOSTIC IMPRESSION AND PLAN: Patient with bilateral lower extremity with extensive with secondary cellulitis. Patient at this time is covered with Unasyn. Local wound care with Aquacel Silver dressing and Ronaldo wrap. Continue supportive care. MMODL / IJN: [id number] /
[2018-08-21] MEDS: traMADol 50 MG TAB PO PRN (03:20)
[2018-08-21] MEDS: IPRATROPIUM-ALBUTEROL 3 ML NEB INHALATION SCH ×6 (03:33→23:40)
[2018-08-21 06:33] LABS: Anisocytosis Slight; Basophils % (A) 1 %; Eosinophils # (A) 0.4 k/uL (0-0.7); Eosinophils % (A) 5 %; HCT 32.9 % (39.0-53.0); HGB 9.5 gm/dL (13.0-17.5); Hypochromasia Marked; Lymphocytes # (A) 1.1 k/uL (1.0-4.8); Lymphocytes % (A) 15 %; MCHC 28.9 g/dL (31.0-37.0); MCV 104.1 fL (80.0-100.0); Macrocytosis Marked; Mean Platelet Volume 8.3; Monocytes # (A) 0.4 k/uL (0-1.0); Monocytes % (A) 6 %; Neutrophils # (A) 5.1 k/uL (1.3-7.7); Neutrophils % (A) 72 %; RBC 3.16 m/uL (4.30-5.90); RDW 19.8 % (11.5-15.5); WBC 7.1 k/uL (3.8-10.6)
[2018-08-21 06:40] LABS: Platelet Count 70 k/uL (150-450)
[2018-08-21 06:52] LABS: Calcium 10.2 mg/dL (8.4-10.2); Magnesium 1.9 mg/dL (1.6-2.3); Phosphorus 4.6 mg/dL (2.5-4.5); Potassium 3.4 mmol/L (3.5-5.1)
[2018-08-21 06:58] LABS: Glucose,Whole Blood 157 mg/dL (75-99)
[2018-08-21] MEDS: INSULIN ASPART (NovoLOG) 100 UNIT/ML VIAL SQ SCH ×3 (07:02→18:10)
[2018-08-21] MEDS: SEVELAMER 800 MG TAB PO SCH ×3 (07:02→17:25)
[2018-08-21] MEDS: MIDODRINE 5 MG TAB PO SCH ×3 (07:02→17:39)
[2018-08-21] MEDS ORDERED: POTASSIUM BICARBONATE/CIT AC 20 MEQ TABLET.EFF PO ONE (07:19)
--- NOTE | 2018-08-21 07:24 | XR ---
EXAMINATION TYPE: XR chest 1V DATE OF EXAM: 08/21/2018 CLINICAL HISTORY: Difficulty breathing progress study. TECHNIQUE: Single AP portable upright view of the chest is obtained. COMPARISON: Chest x-ray from one day earlier FINDINGS: The cardiomediastinal silhouette silhouette is enlarged but stable. Enteric tube is appropriately pos itioned. Right IJ central line is stable. Large right pleural effusion is stable. A component of righ t lung atelectasis is also suspected as there is rightward shift of the mediastinum. Patchy bilateral alveolar opacities are seen diffusely. Osseous structures are unchanged. IMPRESSION: 1. Stable support lines and tubes. 2. Sequela of findings which are most consistent with congestive heart failure. These are essentially stable in the interval.
[2018-08-21 08:16] LABS: Glucose,Whole Blood 152 mg/dL (75-99)
[2018-08-21] MEDS: AMPICILLIN-SULBACTAM 3 GM in SODIUM CHLORIDE 0.9% 100 ML IVPB SCH ×2 (08:54→21:30)
[2018-08-21] MEDS: PANTOPRAZOLE 40 MG/10 ML VIAL IVP SCH (08:55)
[2018-08-21] MEDS: LACTULOSE 20 GM/30 ML CUP PO SCH (08:55)
[2018-08-21] MEDS: DEXTROSE 5% IN WATER 1,000 ML IV SCH (08:55)
[2018-08-21] MEDS: CINACALCET 30 MG TAB PO SCH (08:55)
--- NOTE | 2018-08-21 09:39 | P.PN ---
Subjective Patient is seen in follow-up for acute kidney injury, currently hemodialysis dependent. He tolerated hemodialysis well yesterday. Scheduled to undergo ultrafiltration only treatment today. Remains oliguric. Still quite edematous. Potassium is low which was replaced. Vital signs are stable. General: The patient appeared well nourished and normally developed. HEENT: Head exam is unremarkable. Neck is without jugular venous distension. LUNGS: Breath sounds decreased. HEART: Rate and Rhythm are regular. First and second heart sounds normal. No murmurs, rubs or gallops. ABDOMEN: Abdominal exam reveals normal bowel sounds. Non-tender and non- distended. No evidence of peritonitis. EXTREMITITES: 2+ edema. Objective - Vital Signs Vital signs: Vital Signs Temp 97.3 F L 08/21/18 08:00 Pulse 94 08/21/18 09:00 Resp 14 08/21/18 09:00 BP 128/76 08/21/18 09:00 Pulse Ox 96 08/21/18 09:00 Intake & Output 08/20/18 08/21/18 08/21/18 18:59 06:59 18:59 Intake Total 790 811 100 Output Total 205 0 Balance 790 606 100 Weight 134.6 kg Intake: IV 700 550 100 Ampicillin-Sulbactam 3 gm 100 In Sodium Chloride 0.9% 100 ml @ 200 mls/hr IVPB Q12HR [facility] Rx#:[id number] Dextrose 5% in Water 1, 600 550 100 000 ml @ 50 mls/hr IV . Q20H [facility] Rx#:[id number] Tube Feeding 60 231 Other 30 30 Output: Urine 205 0 Other: Voiding Method Incontinent Incontinent # Bowel Movements 1 ABP, PAP, CO, CI - Last Documented Cardiac Output 6.5 Cardiac Index 2.8 - Labs CBC & Chem 7: 08/21/18 06:01 08/21/18 06:01 Labs: Abnormal Lab Results - Last 24 Hours (Table) 08/20/18 08/20/18 08/21/18 Range/Units 21:10 23:13 06:01 RBC (4.30-5.90) m/uL Hgb (13.0-17.5) gm/dL Hct (39.0-53.0) % MCV (80.0-100.0) fL MCHC (31.0-37.0) g/dL RDW (11.5-15.5) % Plt Count (150-450) k/uL Sodium 134 L (137-145) mmol/L Potassium 3.4 L (3.5-5.1) mmol/L Creatinine 2.64 H (0.66-1.25) mg/dL Glucose 160 H (74-99) mg/dL POC Glucose (mg/dL) 111 H 111 H (75-99) mg/dL Phosphorus 4.6 H (2.5-4.5) mg/dL 08/21/18 08/21/18 08/21/18 Range/Units 06:01 06:47 08:05 RBC 3.16 L (4.30-5.90) m/uL Hgb 9.5 L (13.0-17.5) gm/dL Hct 32.9 L (39.0-53.0) % MCV 104.1 H (80.0-100.0) fL MCHC 28.9 L (31.0-37.0) g/dL RDW 19.8 H (11.5-15.5) % Plt Count 70 L (150-450) k/uL Sodium (137-145) mmol/L Potassium (3.5-5.1) mmol/L Creatinine (0.66-1.25) mg/dL Glucose (74-99) mg/dL POC Glucose (mg/dL) 157 H 152 H (75-99) mg/dL Phosphorus (2.5-4.5) mg/dL Assessment and Plan Plan: Assessment: 1. Acute kidney injury secondary to ATN, currently hemodialysis dependent. Remains oliguric. 2. Volume overload. Improving with ultrafiltration. 3. Acute hypoxic respiratory failure secondary to volume overload. Better. 4. Liver carcinoma with likely metastatic disease. Multiple bilateral pulmonary nodules noted. 5. Hyperphosphatemia secondary to acute kidney injury. Better. Maintain on Renvela. Plan: Ultrafiltration only today. Hemodialysis on a Thursday schedule. Patient is receiving tube feeding. Discontinue D5W.
--- NOTE | 2018-08-21 10:39 | P.PN ---
Subjective Progress Note Date: 08/20/18 Patient is somewhat more awake and responsive. However he remains quite lethargic. There is marked generalized weakness. He continues on dialysis. Objective - Vital Signs Vital signs: Vital Signs Temp 97.3 F L 08/21/18 08:00 Pulse 93 08/21/18 10:00 Resp 13 08/21/18 10:00 BP 123/73 08/21/18 10:00 Pulse Ox 98 08/21/18 10:00 Intake & Output 08/20/18 08/21/18 08/21/18 18:59 06:59 18:59 Intake Total 790 811 200 Output Total 205 10 Balance 790 606 190 Weight 134.6 kg 135.6 kg Intake: IV 700 550 200 Ampicillin-Sulbactam 3 gm 100 In Sodium Chloride 0.9% 100 ml @ 200 mls/hr IVPB Q12HR [facility] Rx#:[id number] Dextrose 5% in Water 1, 600 550 200 000 ml @ 50 mls/hr IV . Q20H [facility] Rx#:[id number] Tube Feeding 60 231 Other 30 30 Output: Urine 205 10 Other: Voiding Method Incontinent Incontinent # Bowel Movements 1 ABP, PAP, CO, CI - Last Documented Cardiac Output 6.5 Cardiac Index 2.8 - Constitutional General appearance: Present: no acute distress - EENT Eyes: Present: EOMI ENT: Present: hearing grossly normal - Respiratory Respiratory: bilateral: diminished - Cardiovascular Rhythm: regular Heart sounds: normal: S1, S2 - Gastrointestinal General gastrointestinal: Present: decreased bowel sounds, soft - Integumentary Integumentary Comment(s): Bilateral lower extremities bandaged below knee, with active wound - Neurologic Neurologic: Present: CNII-XII intact - Musculoskeletal Musculoskeletal: Present: generalized weakness, strength equal bilaterally - Psychiatric Psychiatric Comment(s): Lethargic, appropriately responsive intermittently. Other times, comprehension appears to be diminished - Labs CBC & Chem 7: 08/21/18 06:01 08/21/18 06:01 Labs: Abnormal Lab Results - Last 24 Hours (Table) 08/20/18 08/20/18 08/21/18 Range/Units 21:10 23:13 06:01 RBC (4.30-5.90) m/uL Hgb (13.0-17.5) gm/dL Hct (39.0-53.0) % MCV (80.0-100.0) fL MCHC (31.0-37.0) g/dL RDW (11.5-15.5) % Plt Count (150-450) k/uL Sodium 134 L (137-145) mmol/L Potassium 3.4 L (3.5-5.1) mmol/L Creatinine 2.64 H (0.66-1.25) mg/dL Glucose 160 H (74-99) mg/dL POC Glucose (mg/dL) 111 H 111 H (75-99) mg/dL Phosphorus 4.6 H (2.5-4.5) mg/dL 08/21/18 08/21/18 08/21/18 Range/Units 06:01 06:47 08:05 RBC 3.16 L (4.30-5.90) m/uL Hgb 9.5 L (13.0-17.5) gm/dL Hct 32.9 L (39.0-53.0) % MCV 104.1 H (80.0-100.0) fL MCHC 28.9 L (31.0-37.0) g/dL RDW 19.8 H (11.5-15.5) % Plt Count 70 L (150-450) k/uL Sodium (137-145) mmol/L Potassium (3.5-5.1) mmol/L Creatinine (0.66-1.25) mg/dL Glucose (74-99) mg/dL POC Glucose (mg/dL) 157 H 152 H (75-99) mg/dL Phosphorus (2.5-4.5) mg/dL Assessment and Plan (1) Liver mass Narrative/Plan: Based on clinical criteria, the patient appears to have hepatocellular cancer which is at least multifocal in the liver, and probably metastatic and bilateral lung nodules noted. Alpha-fetoprotein is markedly elevated, greater than upper limit of the measurement scale. This has been discussed previously with the patient, and his nephew. At this time other family members were not available in the room, and the patient's comprehension appears to be definitely compromise. Case was discussed in detail with the pulmonary and critical care service. From the cancer standpoint itself, the patient's prognosis is quite guarded. His disease is not resectable. The standard of care would be systemic targeted therapy with an objective of prolonging life in palliating symptoms. However effectiveness of the therapy ( Nexavar) is doubtful in patients with significant hepatic compromise, which the patient appears to have. At this time, anyway, the patient is not a candidate for any active treatment because of his very poor performance status, and other major ongoing medical issues. Even if his performance status were to improve in the short-term to a point where systemic therapy can be considered, overall prognosis would still remained quite poor given his underlying liver disease, and multiple other medical issues. Therefore, in our opinion, unless there is major improvement noted, consideration of comfort care would be quite appropriate Current Visit: Yes Status: Acute Priority: High Code(s): R16.0 - HEPATOMEGALY, NOT ELSEWHERE CLASSIFIED SNOMED Code(s): 407016679 Plan: Defer to the admitting service and other consultants for management of his multiple other medical problems
--- NOTE | 2018-08-21 11:09 | P.PN ---
Subjective 72-year-old gentleman with a past medical history significant for end-stage renal disease on dialysis comes in for altered mental status He's been treated for pneumonia and cellulitis and possibly sepsis secondary to that. Computed tomography scan shows that he is having liver mass and pulmonary nodules possibly metastases. He failed his swallow screen twice and is nothing by mouth for now. 08/19 He still feeling weak. He is having gurgling sounds in his throat He doesn't complain of any chest pain or racing heart, does complain of right upper quadrant pain. No nausea and vomiting 08/20 Pt awake today Is NPO now as he failed swallow screen repeatedly. One for a repeat swa;llow study today again seems to be feeling weak says abd pain better 08/21 Patient on nonrebreather his breathing seems to be course. His swallow screen that was done yesterday was inconclusive Looks very weak Objective - Vital Signs Vital signs: Vital Signs Temp 97.3 F L 08/21/18 08:00 Pulse 93 08/21/18 10:00 Resp 13 08/21/18 10:00 BP 123/73 08/21/18 10:00 Pulse Ox 98 08/21/18 10:00 Intake & Output 08/20/18 08/21/18 08/21/18 18:59 06:59 18:59 Intake Total 790 811 200 Output Total 205 10 Balance 790 606 190 Weight 134.6 kg 135.6 kg Intake: IV 700 550 200 Ampicillin-Sulbactam 3 gm 100 In Sodium Chloride 0.9% 100 ml @ 200 mls/hr IVPB Q12HR [facility] Rx#:[id number] Dextrose 5% in Water 1, 600 550 200 000 ml @ 50 mls/hr IV . Q20H [facility] Rx#:[id number] Tube Feeding 60 231 Other 30 30 Output: Urine 205 10 Other: Voiding Method Incontinent Incontinent # Bowel Movements 1 ABP, PAP, CO, CI - Last Documented Cardiac Output 6.5 Cardiac Index 2.8 - Exam On exam, alert and oriented x3. His lethargic HEENT: Conjunctivae normal. eyes normal. NECK: No JVD. No thyroid enlargement. No LNs CARDIOVASCULAR: S1, S2 heard RESPIRATION: He is having rhonchorous breath sounds. ABDOMEN: Soft, says no abd pain today . No guarding. LEGS: He is having erythema in his legs which is improving slowly and legs are wrapped in dressing NERVOUS SYSTEM: Cranial N 2-12 grossly normal. Moves all 4 limbs. No focal deficits. No sensory deficit. No signs of cerebellar dysfucntion. Skin: no ulcer no rash Joints: No active swelling. No inflammation. - Labs CBC & Chem 7: 08/21/18 06:01 08/21/18 06:01 Labs: Abnormal Lab Results - Last 24 Hours (Table) 08/20/18 08/20/18 08/21/18 Range/Units 21:10 23:13 06:01 RBC (4.30-5.90) m/uL Hgb (13.0-17.5) gm/dL Hct (39.0-53.0) % MCV (80.0-100.0) fL MCHC (31.0-37.0) g/dL RDW (11.5-15.5) % Plt Count (150-450) k/uL Sodium 134 L (137-145) mmol/L Potassium 3.4 L (3.5-5.1) mmol/L Creatinine 2.64 H (0.66-1.25) mg/dL Glucose 160 H (74-99) mg/dL POC Glucose (mg/dL) 111 H 111 H (75-99) mg/dL Phosphorus 4.6 H (2.5-4.5) mg/dL 08/21/18 08/21/18 08/21/18 Range/Units 06:01 06:47 08:05 RBC 3.16 L (4.30-5.90) m/uL Hgb 9.5 L (13.0-17.5) gm/dL Hct 32.9 L (39.0-53.0) % MCV 104.1 H (80.0-100.0) fL MCHC 28.9 L (31.0-37.0) g/dL RDW 19.8 H (11.5-15.5) % Plt Count 70 L (150-450) k/uL Sodium (137-145) mmol/L Potassium (3.5-5.1) mmol/L Creatinine (0.66-1.25) mg/dL Glucose (74-99) mg/dL POC Glucose (mg/dL) 157 H 152 H (75-99) mg/dL Phosphorus (2.5-4.5) mg/dL Assessment and Plan Assessment: - Acute encephalopathy need to rule out the cause- improved - Possible sepsis due to cellulitis in the lower extremities. - Liver mass and pulmonary nodules probably due to cancer - Hypertension - Acute respiratory failure - History of end-stage renal disease on dialysis - Anemia - History of diabetes mellitus - History of hypertension - Hyperlipidemia - History of GI bleed and esophageal paresis status post banding Plan - Admitted to ICU. Appreciated ICU recommendations - Swallow screen done yesterday was inconclusive - Patient was very weak and lethargic but is alert today. - Continue current management - Need to discuss with nephew who is the the POA about the plan of care. His overall prognosis guarded. He also has liver mass and pulmonary nodules. Hematology oncology was consulted who suggested that there is likelihood of cancer of the liver and that at this test is not resectable. Also looking at his comorbidities and has poor performance status, at this time is not a candidate for chemotherapy. They recommended hospice versus comfort care. - Continue hemodialysis last ultrafiltration as per nephrology recommendations -Antibiotics as per infectious disease Time with Patient: Greater than 30
[2018-08-21 12:18] LABS: Glucose,Whole Blood 142 mg/dL (75-99)
--- NOTE | 2018-08-21 14:57 | P.PN ---
Subjective Progress Note Date: 08/21/18 Altered mental status, lactic acidosis, suspect sepsis, acute hypoxic/ hypercapnic respiratory failure, hepatocellular carcinoma with metastases This is a 72-year-old gentleman who follows with Dr. Hadyen as his primary care physician. He has a history of end-stage renal disease receiving hemodialysis on Thursday, previous alcohol abuse, previous GI bleeding, hypertension, hyperlipidemia, diabetes mellitus. He was transferred here to the regular medical floor from [facility] yesterday due to altered mental status. He was found to have a fever of unknown origin and elevated ammonia levels. He subsequently developed hypotension and respiratory distress and an A team was called and he was transferred here to the intensive care unit. He is seen today in consultation. He is currently on BiPAP 14/5 and 50% FiO2 to maintain O2 saturations in the 90s. He is currently quite weak and obtunded. Difficult to arouse. He currently has a 0.9 normal saline at 100 MLS per hour. No urine output currently. Chest x-ray shows evidence of cardiomegaly with moderate size right pleural effusion and associated right basilar atelectasis and/or infiltrate. Reticular nodular opacities bilaterally possibly reflecting diffuse edema and/or infiltrates but nodularity is concerning. Metastatic disease and septic emboli air in the differential. White count 4.8. Hemoglobin 9.2. Platelet count 100,000 and creatinine 2.05. Initial lactic acid 2.4 currently 2.1. Current ammonia level 27. He did receive lactulose. He does have multiple open wounds on the lower extremities and sacral area. He'll be initiated on Unasyn. On 08/15/2018 patient seen in follow-up in the intensive care unit. He is awake and alert, oriented 2, to person and place, extremely weak, he had been on BiPAP with pressures of 14 and 5 and FiO2 of 50%, and he has been given a trial of nasal cannula, and is currently on 15 L high flow. No fever, no chills , hemodynamically patient is stable, IV fluids 0.9 normal saline at a rate of 100 ML per hour, no other drips. CT chest was done yesterday, and showed a spec cirrhotic liver with suspicious right hepatic dome mass, possible hepatocellular carcinoma, hepatosplenomegaly with mild surrounding ascites. There were scattered bilateral pulmonary nodules suspicious for diffuse metastatic disease, small right pleural fluid collection. Patient had elevated ammonia, and bilateral lower extremity wound infections. Blood and urine cultures show no growth to date. Final cultures are pending, patient was fluid resuscitated, his blood pressures have improved, today's lab work shows white blood cell count of 4.2, hemoglobin of 9.2, serum sodium is 138, potassium is 3.4, chloride is 104, B1 is 27 and creatinine is 2.54. Nephrology is following , hemodialysis had been held in view of patient's hypotension, patient is on Midrin. And his extremely weak, has a weak congested nonproductive cough. Lung sounds are positive for diffuse rhonchi. Abdomen is obese, but nontender and soft. There is lower extremity edema, lower extremities are wrapped with dressings. ID service is following, and current antibiotic coverage includes Unasyn. We'll status has been discussed with the patient, patient's CODE STATUS is DO NOT RESUSCITATE. On 08/16/2098 seeing this patient for a follow-up. His condition is essentially unchanged. He is doing poorly. He seems to be more so BiPAP dependent and BiPAP was restarted at a pressure of 14/5 cm of water with an FiO2 of 50%. The patient was unable to tolerate the high flow oxygen. Meanwhile, I reviewed his CAT scan of the chest and there is obviously metastatic pulmonary deposits which makes me think that is very much likely the patient has metastatic liver cancer, probably of a hepatocellular carcinoma type knowing that his previous alpha fetoprotein level was quite elevated and this was from 2015. A repeat FLP total protein level will be obtained. Meanwhile, the patient chest x-ray from today shows stable consolidation and pleural effusion and increased interstitial markings bilaterally. There is also small and multiple pulmonary nodules consistent with metastases. The patient was also started hemodialysis regarding an acute kidney injury. He is receiving hemodialysis Thursday and Thursday. He has some signs of volume overload. This is supposed improved with hemodialysis. Davies catheter has been removed this morning. No fever. No chills. No hematemesis. He is quite lethargic and his C-reactive significant amount of motor weakness related to his above-mentioned comorbidities. There may be an underlying component of encephalopathy knowing that the patient's ammonia level was also elevated. He is currently on lactulose 20 mg 3 times a day. He is on midodrine for blood pressure control. IV antibiotics with Unasyn On 08/17/2018, I'm seeing this patient for a follow-up. Patient is still in intensive care unit. The patient underwent dialysis yesterday and another session of ultrafiltration with him today. The patient's overall pulmonary status is stable. The patient is currently off the BiPAP. Chest x-ray findings essentially unchanged. There is pleural effusion on the right along with hepatomegaly and elevation of the right hemidiaphragm and the patient has multiple bilateral pulmonary nodules more so on the left consistent with metastatic disease. The repeat alpha-fetoprotein level is still pending for now. The overall picture is consistent with metastatic hepatocellular carcinoma. The patient also has an incisional disease and currently is on hemodialysis. He is weak. A swallow evaluation was done today and I would suggest repeating a swallow evaluation knowing that the patient is able to swallow contrary to the recommendations made by the speech pathologist. The patient is taking lactulose. Is having adequate bowel movements. Lactulose and those has been drop to once a day. The patient is on IV Unasyn as an empiric antibiotic coverage. The patient is on no pressors for now. Mental status is adequate. The patient is able to follow some simple commands and answers some simple questions. No signs of any apparent respiratory distress at this point in time. No fever. No chills. No aspiration. No leukocytosis. He was stable at 9.5. Creatinine is down to 2.49 as the patient underwent dialysis yesterday. CODE STATUS is DO NOT RESUSCITATE The patient is seen today 08/18/2017 in follow-up in the intensive care unit. He is currently undergoing hemodialysis. He is currently awake and alert. His voice is quite weak and soft. He did not pass a swallow evaluation. There is concern regarding continued microaspiration. He is currently afebrile. Maintaining O2 saturations in the upper 90s on 4 L high flow nasal cannula. He is hemodynamically stable. Blood cultures reveal no growth. Urine culture reveals no growth. White count 4.7. Hemoglobin 9.5. Creatinine 3.15. He remains on Unasyn. Today's chest x-ray shows suspected progression of airspace disease/pulmonary edema/fluid volume overload. On 08/19/2018 patient seen in follow-up in intensive care unit, he is awake, alert, oriented to person and place. Remains extremely generally weak, cough is congested, and nonproductive, patient is not able to clear any phlegm. Sounds are positive for diffuse rhonchi throughout. He is currently on 8 L per nasal cannula, and his taxes 95-98%, afebrile, hemodynamically patient is stable , IV fluids include D5 W at a rate of 50 ML per hour. Patient has had a daily bedside swallow evaluation, and patient has been failing swallow evaluations on the daily basis. Patient is on nebulized bronchodilators, he is receiving lactulose, and his ammonia level this morning is less than 9. Antibiotic coverage includes Unasyn, his cultures have been negative. No fever or chills. Medical oncology is following, patient's alpha-fetoprotein levels came back greater than 100,000, and CT chest showed right hepatic dome mass worrisome for hepatocellular carcinoma, and hepatosplenomegaly, with surrounding ascites, scattered bilateral pulmonary nodules suspicious for diffuse metastatic disease. Patient functional that his is extremely debilitated, patient has been hospitalized between different facilities in [facility] and [facility] since March 2018, has had a very complicated protracted downward health trend. CODE STATUS is DO NOT RESUSCITATE, in view of patient's impaired ability to swallow, a decision needs to be made whether patient's family was to proceed with PEG tube placement and consider palliative care/comfort care. Patient has had daily dialysis. No new chest x-ray today, yesterday chest x- ray showed pulmonary edema and volume overload. Today's labs showed a white blood cell count of 5.7, hemoglobin 10.0, electrolytes were within normal limits , BUN is 20 and creatinine was 2.5, nephrology is following. The patient is seen again today 08/20/2018 in follow-up in the intensive care unit. He remains awake and alert. His voice is still quite soft and weak. He has not passed any swallow evaluations thus far. He is going down again for a barium swallow today. A Dobbhoff tube was inserted yesterday. He has been initiated on Nepro and free water flushes. His oxygen requirements have gone up in the past 24 hours. Currently on 10 L high flow nasal cannula to maintain O2 saturations in the low 90s. He's been afebrile. Hemodynamically stable. A culture reveals no growth. Urine culture reveals no growth. White count 6.1. Hemoglobin 9.3. Creatinine 3.04. Yesterday's chest x-ray revealed congestive heart failure with a right pleural effusion. He remains on bronchodilators and Unasyn. He remains overall quite weak. He is receiving hemodialysis again today. On today's evaluation of 08/21/2018, the patient is awake. He is following simple commands. He speaks in a very soft voice. Another swallow evaluation was done and the patient failed again. He has a Dobbhoff and the patient is receiving enteral feeding without any major difficulties. He is tolerating the Nepro and the free water flushes without any major difficulties and without residuals. His oxygenation and pulse ox is been fluctuating. He was a high flow oxygen. Earlier this morning he was placed on the percent nonrebreather facemask as the patient was having some desaturation. He has a deep congested cough. Chest x-ray findings are unchanged. He'll be undergoing another session of hemodialysis today. He remains extremely debilitated. We have changed his CODE STATUS to DNR/DNI. We have also made some recommendations for the guardian to consider hospice care knowing that his condition is very much grade and his comorbidities and none recovered well especially with a metastatic liver cancer and extreme debility and motor weakness. His elevated as well as also becoming impaired and the patient is currently receiving enteral feeding for nutrition. He is afebrile for now. His hemoglobin is stable. He remains on empiric antibiotic coverage with IV Unasyn. No hypoglycemic events. Is receiving lactulose regarding chronic liver disease/ cirrhosis with hepatic encephalopathy. Objective - Vital Signs Vital signs: Vital Signs Temp 98 F 08/21/18 12:00 Pulse 93 08/21/18 14:00 Resp 10 L 08/21/18 14:00 BP 107/70 08/21/18 14:00 Pulse Ox 97 08/21/18 14:00 Intake & Output 08/20/18 08/21/18 08/21/18 18:59 06:59 18:59 Intake Total 790 811 650 Output Total 205 10 Balance 790 606 640 Weight 134.6 kg 135.6 kg Intake: IV 700 550 360 Ampicillin-Sulbactam 3 gm 100 100 In Sodium Chloride 0.9% 100 ml @ 200 mls/hr IVPB Q12HR [facility] Rx#:[id number] Dextrose 5% in Water 1, 600 550 200 000 ml @ 50 mls/hr IV . Q20H [facility] Rx#:[id number] KVO 60 Tube Feeding 60 231 190 Other 30 30 100 Output: Urine 205 10 Other: Voiding Method Incontinent Incontinent Incontinent # Bowel Movements 1 ABP, PAP, CO, CI - Last Documented Cardiac Output 6.5 Cardiac Index 2.8 - Exam GENERAL EXAM: Alert, 72-year-old obese white male, very debilitated and weak. Currently on 10 L high flow nasal cannula. HEAD: Normocephalic/atraumatic. EYES: Normal reaction of pupils, equal size. Conjunctiva pink, sclera white. NOSE: Clear with pink turbinates. THROAT: No erythema or exudates. Voices very weak and soft. NECK: No masses, no JVD, no thyroid enlargement, no adenopathy. CHEST: No chest wall deformity. Symmetrical expansion. LUNGS: Equal air entry with diffuse rhonchi, patient has a weak nonproductive congested cough CVS: Regular rate and rhythm, normal S1 and S2, no gallops, no murmurs, no rubs ABDOMEN: Soft, nontender. No hepatosplenomegaly, normal bowel sounds, no guarding or rigidity. EXTREMITIES: No clubbing, 2+ lower extremity edema, bilateral lower extremity wounds, covered with dressings, no cyanosis, 2+ pulses and upper and lower extremities. Extremity edema is improving as the patient is undergoing dialysis with ultrafiltration. MUSCULOSKELETAL: Muscle strength and tone extremely weak. SPINE: No scoliosis or deformity SKIN: No rashes CENTRAL NERVOUS SYSTEM: Alert and oriented -2. No focal deficits, tone is normal in all 4 extremities, however there is considerable amount of motor weakness in all 4 extremities. - Labs CBC & Chem 7: 08/21/18 06:01 08/21/18 13:15 Labs: Abnormal Lab Results - Last 24 Hours (Table) 08/20/18 08/20/18 08/21/18 Range/Units 21:10 23:13 06:01 RBC (4.30-5.90) m/uL Hgb (13.0-17.5) gm/dL Hct (39.0-53.0) % MCV (80.0-100.0) fL MCHC (31.0-37.0) g/dL RDW (11.5-15.5) % Plt Count (150-450) k/uL Sodium 134 L (137-145) mmol/L Potassium 3.4 L (3.5-5.1) mmol/L Creatinine 2.64 H (0.66-1.25) mg/dL Glucose 160 H (74-99) mg/dL POC Glucose (mg/dL) 111 H 111 H (75-99) mg/dL Phosphorus 4.6 H (2.5-4.5) mg/dL 08/21/18 08/21/18 08/21/18 Range/Units 06:01 06:47 08:05 RBC 3.16 L (4.30-5.90) m/uL Hgb 9.5 L (13.0-17.5) gm/dL Hct 32.9 L (39.0-53.0) % MCV 104.1 H (80.0-100.0) fL MCHC 28.9 L (31.0-37.0) g/dL RDW 19.8 H (11.5-15.5) % Plt Count 70 L (150-450) k/uL Sodium (137-145) mmol/L Potassium (3.5-5.1) mmol/L Creatinine (0.66-1.25) mg/dL Glucose (74-99) mg/dL POC Glucose (mg/dL) 157 H 152 H (75-99) mg/dL Phosphorus (2.5-4.5) mg/dL 08/21/18 Range/Units 12:07 RBC (4.30-5.90) m/uL Hgb (13.0-17.5) gm/dL Hct (39.0-53.0) % MCV (80.0-100.0) fL MCHC (31.0-37.0) g/dL RDW (11.5-15.5) % Plt Count (150-450) k/uL Sodium (137-145) mmol/L Potassium (3.5-5.1) mmol/L Creatinine (0.66-1.25) mg/dL Glucose (74-99) mg/dL POC Glucose (mg/dL) 142 H (75-99) mg/dL Phosphorus (2.5-4.5) mg/dL Assessment and Plan Plan: Impression: #1 liver cirrhosis with hepatic encephalopathy did improved with lactulose. Nevertheless the patient remains extremely debilitated and his condition is unchanged and he is not doing any progress. Meanwhile, his swallow has become impaired and the patient is currently receiving enteral feeding for nutritional support through a Dobbhoff. #2 profound weakness and medical debility seconds above-mentioned comorbidities. #3 Acute hypoxic/hypercapnic respiratory failure which is multifactorial. The patient has extensive metastatic deposits in his lungs bilaterally. The patient also had a component of CHF and fluid overload for which he is undergoing dialysis on a regular basis. Also, the patient is silently aspirating and for that reason he was placed nothing by mouth and currently is receiving enteral feeding for nutritional support through a Dobbhoff. #4 Morbid obesity. #5 Suspected Hepatocellular Carcinoma, Multiple Bilateral Pulmonary Nodules Suspicious for Diffuse Metastatic Disease. Alpha-Fetoprotein Levels Elevated. #6 Anemia secondary to above. #7 Thrombocytopenia secondary to above. #8 Acute on chronic renal failure with end-stage renal disease receiving renal replacement therapy with hemodialysis Thursday. #9 Diabetes mellitus #10 Hypertension, history of. #11 Hyperlipidemia. #12 History of GI bleed and esophageal varices status post banding. #13 Lactic acidosis contrary to suspected sepsis possibly cellulitis from the lower extremities and coccyx area wounds. Remains on Unasyn. Plan Prognosis remains very poor. The patient is not having adequate recovery in his quite in a standstill. He is very much debilitated. He unable to get 2.30 with ambulate. He swallows impaired. He has encephalopathy which is chronic. He has hypoxemia which is chronic and multifactorial. Unfortunately the majority of his comorbidities of nonreversible at this point. Consider hospice care. This will be again emphasized to the power of compliance attorney, which happens to be his nephews.
--- NOTE | 2018-08-21 17:50 | PN ---
PROGRESS NOTE DATE OF SERVICE: 08/21/2018 REASON FOR FOLLOWUP: Bilateral lower extremity venostasis ulcers, cellulitis. INTERVAL HISTORY: The patient is currently afebrile, has been breathing comfortably. No chest pain. He did have some cough. No nausea, vomiting or any diarrhea reported by the nursing staff. PHYSICAL EXAMINATION: Blood pressure 111/63 with a pulse of 100, temperature 98. He is 95% on a non- rebreather. General description is an elderly male lying in bed in no distress. RESPIRATORY SYSTEM: Unlabored breathing. Some coarse breath sounds at the bases. No wheeze. HEART: S1, S2. Regular rate and rhythm. ABDOMEN: Soft. No tenderness. Legs are currently wrapped up. No obvious drainage on the dressing. LABS: Hemoglobin 9.5, white count 7.1. BUN of 18, creatinine 2.64. DIAGNOSTIC IMPRESSION AND PLAN: Patient with bilateral lower extremity venostasis ulcers with skin cellulitis. Patient is currently covered with Unasyn. In view of no oral intake, to continue along with Aquacel Silver dressing to the leg wounds and Ronaldo wrap to keep the swelling down. Continue with supportive care. MMODL / IJN: [id number] /
[2018-08-22 00:22] LABS: Glucose,Whole Blood 183 mg/dL (75-99)
[2018-08-22] MEDS: SODIUM CHLORIDE 0.9% 500 ML 500 ML IV SCH (00:33)
[2018-08-22] MEDS: INSULIN ASPART (NovoLOG) 100 UNIT/ML VIAL SQ SCH ×4 (00:33→17:18)
[2018-08-22] MEDS: IPRATROPIUM-ALBUTEROL 3 ML NEB INHALATION SCH ×6 (03:43→23:37)
[2018-08-22 05:44] LABS: Albumin 2.7 g/dL (3.5-5.0); Calcium 11.1 mg/dL (8.4-10.2); Magnesium 2.1 mg/dL (1.6-2.3); Phosphorus 4.7 mg/dL (2.5-4.5); Potassium 3.9 mmol/L (3.5-5.1); Total Bilirubin 1.7 mg/dL (0.2-1.3); Total Protein 7.7 g/dL (6.3-8.2)
[2018-08-22 06:23] LABS: Anisocytosis Slight; HCT 34.7 % (39.0-53.0); HGB 10.1 gm/dL (13.0-17.5); Hypochromasia Marked; MCH 30.6 pg (25.0-35.0); MCHC 29.2 g/dL (31.0-37.0); Macrocytosis Marked; Mean Platelet Volume 8.5; Platelet Count 62 k/uL (150-450); RDW 19.6 % (11.5-15.5)
[2018-08-22 06:42] LABS: Glucose,Whole Blood 171 mg/dL (75-99)
[2018-08-22] MEDS: PANTOPRAZOLE 40 MG/10 ML VIAL IVP SCH (08:59)
[2018-08-22] MEDS: AMPICILLIN-SULBACTAM 3 GM in SODIUM CHLORIDE 0.9% 100 ML IVPB SCH ×2 (08:59→22:11)
[2018-08-22] MEDS: MIDODRINE 5 MG TAB PO SCH ×3 (09:00→17:17)
[2018-08-22] MEDS: SEVELAMER 800 MG TAB PO SCH ×3 (09:00→17:17)
[2018-08-22] MEDS: CINACALCET 30 MG TAB PO SCH (09:01)
[2018-08-22] MEDS: LACTULOSE 20 GM/30 ML CUP PO SCH (09:06)
--- NOTE | 2018-08-22 09:26 | XR ---
EXAMINATION TYPE: XR chest 1V portable DATE OF EXAM: 08/22/2018 COMPARISON: 08/21/2018 INDICATION: Short of breath TECHNIQUE: Single frontal view of the chest is obtained. FINDINGS: The heart size is borderline in size. The pulmonary vasculature is normal. There is a alveolar type patchy opacity through the left lung. Right lung has a moderate right pleura l effusion with some mild alveolar patchy infiltrate. Right central venous catheter is present with the tips in the region superior vena cava. IMPRESSION: 1. Clinical correlation recommended for diffuse pulmonary edema. 2. Moderate right pleural effusion. 3. Cardiomegaly 4. Exam stable from comparison.
--- NOTE | 2018-08-22 09:52 | P.PN ---
Subjective Patient is seen in follow-up for acute kidney injury, currently hemodialysis dependent. He tolerated ultrafiltration well yesterday. Remains oliguric. Edema improved. He is maintained on tube feeding. Vital signs are stable. General: The patient appeared well nourished and normally developed. HEENT: Head exam is unremarkable. Neck is without jugular venous distension. LUNGS: Breath sounds decreased. HEART: Rate and Rhythm are regular. First and second heart sounds normal. No murmurs, rubs or gallops. ABDOMEN: Abdominal exam reveals normal bowel sounds. Non-tender and non- distended. No evidence of peritonitis. EXTREMITITES: 1+ edema. Objective - Vital Signs Vital signs: Vital Signs Temp 98.5 F 08/22/18 08:00 Pulse 106 H 08/22/18 09:00 Resp 25 H 08/22/18 09:00 BP 111/61 08/22/18 09:00 Pulse Ox 89 L 08/22/18 09:00 Intake & Output 08/21/18 08/22/18 08/22/18 18:59 06:59 18:59 Intake Total 810 1090 60 Output Total 61 3 0 Balance 749 1087 60 Weight 135.6 kg 133.1 kg Intake: IV 400 210 10 Ampicillin-Sulbactam 3 gm 100 100 In Sodium Chloride 0.9% 100 ml @ 200 mls/hr IVPB Q12HR DANIEL Rx#:[id number] Dextrose 5% in Water 1, 200 000 ml @ 50 mls/hr IV . Q20H DANIEL Rx#:[id number] KVO 100 110 10 Tube Feeding 310 790 50 Other 100 90 Output: Urine 60 2 0 Stool 1 1 Other: Voiding Method Incontinent Incontinent # Voids 0 0 ABP, PAP, CO, CI - Last Documented Cardiac Output 6.5 Cardiac Index 2.8 - Labs CBC & Chem 7: 08/22/18 04:35 08/22/18 04:35 Labs: Abnormal Lab Results - Last 24 Hours (Table) 08/21/18 08/21/18 08/22/18 Range/Units 12:07 17:53 00:10 RBC (4.30-5.90) m/uL Hgb (13.0-17.5) gm/dL Hct (39.0-53.0) % MCV (80.0-100.0) fL MCHC (31.0-37.0) g/dL RDW (11.5-15.5) % Plt Count (150-450) k/uL Sodium (137-145) mmol/L BUN (9-20) mg/dL Creatinine (0.66-1.25) mg/dL Glucose 156 H (74-99) mg/dL POC Glucose (mg/dL) 142 H 183 H (75-99) mg/dL Calcium (8.4-10.2) mg/dL Phosphorus (2.5-4.5) mg/dL Total Bilirubin (0.2-1.3) mg/dL AST (17-59) U/L Alkaline Phosphatase (38-126) U/L Albumin (3.5-5.0) g/dL 08/22/18 08/22/18 08/22/18 Range/Units 04:35 04:35 06:31 RBC 3.30 L (4.30-5.90) m/uL Hgb 10.1 L (13.0-17.5) gm/dL Hct 34.7 L (39.0-53.0) % MCV 105.0 H (80.0-100.0) fL MCHC 29.2 L (31.0-37.0) g/dL RDW 19.6 H (11.5-15.5) % Plt Count 62 L (150-450) k/uL Sodium 135 L (137-145) mmol/L BUN 25 H (9-20) mg/dL Creatinine 3.27 H (0.66-1.25) mg/dL Glucose 164 H (74-99) mg/dL POC Glucose (mg/dL) 171 H (75-99) mg/dL Calcium 11.1 H (8.4-10.2) mg/dL Phosphorus 4.7 H (2.5-4.5) mg/dL Total Bilirubin 1.7 H (0.2-1.3) mg/dL AST 137 H (17-59) U/L Alkaline Phosphatase 298 H (38-126) U/L Albumin 2.7 L (3.5-5.0) g/dL Assessment and Plan Plan: Assessment: 1. Acute kidney injury secondary to ATN, currently hemodialysis dependent. Remains oliguric. 2. Volume overload. Improving with ultrafiltration. 3. Acute hypoxic respiratory failure secondary to volume overload. Better. 4. Liver carcinoma with likely metastatic disease. Multiple bilateral pulmonary nodules noted. 5. Hyperphosphatemia secondary to acute kidney injury. Better. Maintain on Renvela. 6. Hypercalcemia. Maintain on Sensipar. Likely due to underlying malignancy. Plan: Hemodialysis tomorrow using low calcium bath. Check PTH and vitamin D level. Add Lasix 80 mg twice a day.
[2018-08-22 10:53] LABS: Band Neutrophils % 3 %; Eosinophils # (M) 0.32 k/uL (0-0.7); Lymphocytes # (M) 0.96 k/uL (1.0-4.8); Monocytes # (M) 0.56 k/uL (0-1.0); Myelocytes # (M) 0.16 k/uL (0); Myelocytes % 2 %; Neutrophils % (M) 73 %; Nucleated Red Blood Cells 0 /100 WBC (0-0); Total Cells Counted 200
[2018-08-22 12:19] LABS: Glucose,Whole Blood 136 mg/dL (75-99)
--- NOTE | 2018-08-22 12:21 | P.PN ---
Subjective 72-year-old gentleman with a past medical history significant for end-stage renal disease on dialysis comes in for altered mental status He's been treated for pneumonia and cellulitis and possibly sepsis secondary to that. Computed tomography scan shows that he is having liver mass and pulmonary nodules possibly metastases. He failed his swallow screen twice and is nothing by mouth for now. 08/19 He still feeling weak. He is having gurgling sounds in his throat He doesn't complain of any chest pain or racing heart, does complain of right upper quadrant pain. No nausea and vomiting 08/20 Pt awake today Is NPO now as he failed swallow screen repeatedly. One for a repeat swa;llow study today again seems to be feeling weak says abd pain better 08/21 Patient on nonrebreather his breathing seems to be course. His swallow screen that was done yesterday was inconclusive Looks very weak 08/22 Patient still looks very lethargic on nonrebreather Has a hoarse voice Says that he's feeling better. Objective - Vital Signs Vital signs: Vital Signs Temp 98.5 F 08/22/18 08:00 Pulse 106 H 08/22/18 09:00 Resp 25 H 08/22/18 09:00 BP 111/61 08/22/18 09:00 Pulse Ox 89 L 08/22/18 09:00 Intake & Output 08/21/18 08/22/18 08/22/18 18:59 06:59 18:59 Intake Total 810 1090 720 Output Total 61 3 0 Balance 749 1087 720 Weight 135.6 kg 133.1 kg Intake: IV 400 210 140 Ampicillin-Sulbactam 3 gm 100 100 100 In Sodium Chloride 0.9% 100 ml @ 200 mls/hr IVPB Q12HR DANIEL Rx#:[id number] Dextrose 5% in Water 1, 200 000 ml @ 50 mls/hr IV . Q20H DANIEL Rx#:[id number] KVO 100 110 40 Oral 250 Tube Feeding 310 790 300 Other 100 90 30 Output: Urine 60 2 0 Stool 1 1 Other: Voiding Method Incontinent Incontinent Incontinent # Voids 0 0 ABP, PAP, CO, CI - Last Documented Cardiac Output 6.5 Cardiac Index 2.8 - Exam On exam, alert and oriented x3. His lethargic HEENT: Conjunctivae normal. eyes normal. NECK: No JVD. No thyroid enlargement. No LNs CARDIOVASCULAR: S1, S2 heard RESPIRATION: He is having rhonchorous breath sounds. ABDOMEN: Soft, says no abd pain today . No guarding. LEGS: He is having erythema in his legs which is improving slowly and legs are wrapped in dressing NERVOUS SYSTEM: Cranial N 2-12 grossly normal. Moves all 4 limbs. No focal deficits. No sensory deficit. No signs of cerebellar dysfucntion. Skin: no ulcer no rash Joints: No active swelling. No inflammation. - Labs CBC & Chem 7: 08/22/18 04:35 08/22/18 04:35 Labs: Abnormal Lab Results - Last 24 Hours (Table) 08/21/18 08/21/18 08/22/18 Range/Units 12:07 17:53 00:10 RBC (4.30-5.90) m/uL Hgb (13.0-17.5) gm/dL Hct (39.0-53.0) % MCV (80.0-100.0) fL MCHC (31.0-37.0) g/dL RDW (11.5-15.5) % Plt Count (150-450) k/uL Lymphocytes # (Manual) (1.0-4.8) k/uL Myelocytes # (Manual) (0) k/uL Sodium (137-145) mmol/L BUN (9-20) mg/dL Creatinine (0.66-1.25) mg/dL Glucose 156 H (74-99) mg/dL POC Glucose (mg/dL) 142 H 183 H (75-99) mg/dL Calcium (8.4-10.2) mg/dL Phosphorus (2.5-4.5) mg/dL Total Bilirubin (0.2-1.3) mg/dL AST (17-59) U/L Alkaline Phosphatase (38-126) U/L Albumin (3.5-5.0) g/dL 08/22/18 08/22/18 08/22/18 Range/Units 04:35 04:35 06:31 RBC 3.30 L (4.30-5.90) m/uL Hgb 10.1 L (13.0-17.5) gm/dL Hct 34.7 L (39.0-53.0) % MCV 105.0 H (80.0-100.0) fL MCHC 29.2 L (31.0-37.0) g/dL RDW 19.6 H (11.5-15.5) % Plt Count 62 L (150-450) k/uL Lymphocytes # (Manual) 0.96 L (1.0-4.8) k/uL Myelocytes # (Manual) 0.16 H (0) k/uL Sodium 135 L (137-145) mmol/L BUN 25 H (9-20) mg/dL Creatinine 3.27 H (0.66-1.25) mg/dL Glucose 164 H (74-99) mg/dL POC Glucose (mg/dL) 171 H (75-99) mg/dL Calcium 11.1 H (8.4-10.2) mg/dL Phosphorus 4.7 H (2.5-4.5) mg/dL Total Bilirubin 1.7 H (0.2-1.3) mg/dL AST 137 H (17-59) U/L Alkaline Phosphatase 298 H (38-126) U/L Albumin 2.7 L (3.5-5.0) g/dL Assessment and Plan Assessment: - Acute encephalopathy need to rule out the cause- improved - Possible sepsis due to cellulitis in the lower extremities. - Liver mass and pulmonary nodules probably due to cancer - Hypertension - Acute respiratory failure - History of end-stage renal disease on dialysis - Anemia - History of diabetes mellitus - History of hypertension - Hyperlipidemia - History of GI bleed and esophageal paresis status post banding Plan - Admitted to ICU. Appreciated ICU recommendations - Patient has multiple comorbidities which cannot be fixed. - Is not a new to maintain his hands against gravity. Really weak - Need to to discuss with nephew about possible comfort care versus hospice care as suggested by multiple consultants. Nephew is in the POA - Continue current management until then - We'll continue to monitor Time with Patient: Greater than 30
--- NOTE | 2018-08-22 14:55 | P.PN ---
Subjective Progress Note Date: 08/22/18 Altered mental status, lactic acidosis, suspect sepsis, acute hypoxic/ hypercapnic respiratory failure, hepatocellular carcinoma with metastases This is a 72-year-old gentleman who follows with Dr. Hayden as his primary care physician. He has a history of end-stage renal disease receiving hemodialysis on Thursday, previous alcohol abuse, previous GI bleeding, hypertension, hyperlipidemia, diabetes mellitus. He was transferred here to the regular medical floor from [facility] yesterday due to altered mental status. He was found to have a fever of unknown origin and elevated ammonia levels. He subsequently developed hypotension and respiratory distress and an A team was called and he was transferred here to the intensive care unit. He is seen today in consultation. He is currently on BiPAP 14/5 and 50% FiO2 to maintain O2 saturations in the 90s. He is currently quite weak and obtunded. Difficult to arouse. He currently has a 0.9 normal saline at 100 MLS per hour. No urine output currently. Chest x-ray shows evidence of cardiomegaly with moderate size right pleural effusion and associated right basilar atelectasis and/or infiltrate. Reticular nodular opacities bilaterally possibly reflecting diffuse edema and/or infiltrates but nodularity is concerning. Metastatic disease and septic emboli air in the differential. White count 4.8. Hemoglobin 9.2. Platelet count 100,000 and creatinine 2.05. Initial lactic acid 2.4 currently 2.1. Current ammonia level 27. He did receive lactulose. He does have multiple open wounds on the lower extremities and sacral area. He'll be initiated on Unasyn. On 08/15/2018 patient seen in follow-up in the intensive care unit. He is awake and alert, oriented 2, to person and place, extremely weak, he had been on BiPAP with pressures of 14 and 5 and FiO2 of 50%, and he has been given a trial of nasal cannula, and is currently on 15 L high flow. No fever, no chills , hemodynamically patient is stable, IV fluids 0.9 normal saline at a rate of 100 ML per hour, no other drips. CT chest was done yesterday, and showed a spec cirrhotic liver with suspicious right hepatic dome mass, possible hepatocellular carcinoma, hepatosplenomegaly with mild surrounding ascites. There were scattered bilateral pulmonary nodules suspicious for diffuse metastatic disease, small right pleural fluid collection. Patient had elevated ammonia, and bilateral lower extremity wound infections. Blood and urine cultures show no growth to date. Final cultures are pending, patient was fluid resuscitated, his blood pressures have improved, today's lab work shows white blood cell count of 4.2, hemoglobin of 9.2, serum sodium is 138, potassium is 3.4, chloride is 104, B1 is 27 and creatinine is 2.54. Nephrology is following , hemodialysis had been held in view of patient's hypotension, patient is on Midrin. And his extremely weak, has a weak congested nonproductive cough. Lung sounds are positive for diffuse rhonchi. Abdomen is obese, but nontender and soft. There is lower extremity edema, lower extremities are wrapped with dressings. ID service is following, and current antibiotic coverage includes Unasyn. We'll status has been discussed with the patient, patient's CODE STATUS is DO NOT RESUSCITATE. On 08/16/2098 seeing this patient for a follow-up. His condition is essentially unchanged. He is doing poorly. He seems to be more so BiPAP dependent and BiPAP was restarted at a pressure of 14/5 cm of water with an FiO2 of 50%. The patient was unable to tolerate the high flow oxygen. Meanwhile, I reviewed his CAT scan of the chest and there is obviously metastatic pulmonary deposits which makes me think that is very much likely the patient has metastatic liver cancer, probably of a hepatocellular carcinoma type knowing that his previous alpha fetoprotein level was quite elevated and this was from 2015. A repeat FLP total protein level will be obtained. Meanwhile, the patient chest x-ray from today shows stable consolidation and pleural effusion and increased interstitial markings bilaterally. There is also small and multiple pulmonary nodules consistent with metastases. The patient was also started hemodialysis regarding an acute kidney injury. He is receiving hemodialysis Thursday and Thursday. He has some signs of volume overload. This is supposed improved with hemodialysis. Davies catheter has been removed this morning. No fever. No chills. No hematemesis. He is quite lethargic and his C-reactive significant amount of motor weakness related to his above-mentioned comorbidities. There may be an underlying component of encephalopathy knowing that the patient's ammonia level was also elevated. He is currently on lactulose 20 mg 3 times a day. He is on midodrine for blood pressure control. IV antibiotics with Unasyn On 08/17/2018, I'm seeing this patient for a follow-up. Patient is still in intensive care unit. The patient underwent dialysis yesterday and another session of ultrafiltration with him today. The patient's overall pulmonary status is stable. The patient is currently off the BiPAP. Chest x-ray findings essentially unchanged. There is pleural effusion on the right along with hepatomegaly and elevation of the right hemidiaphragm and the patient has multiple bilateral pulmonary nodules more so on the left consistent with metastatic disease. The repeat alpha-fetoprotein level is still pending for now. The overall picture is consistent with metastatic hepatocellular carcinoma. The patient also has an incisional disease and currently is on hemodialysis. He is weak. A swallow evaluation was done today and I would suggest repeating a swallow evaluation knowing that the patient is able to swallow contrary to the recommendations made by the speech pathologist. The patient is taking lactulose. Is having adequate bowel movements. Lactulose and those has been drop to once a day. The patient is on IV Unasyn as an empiric antibiotic coverage. The patient is on no pressors for now. Mental status is adequate. The patient is able to follow some simple commands and answers some simple questions. No signs of any apparent respiratory distress at this point in time. No fever. No chills. No aspiration. No leukocytosis. He was stable at 9.5. Creatinine is down to 2.49 as the patient underwent dialysis yesterday. CODE STATUS is DO NOT RESUSCITATE The patient is seen today 08/18/2017 in follow-up in the intensive care unit. He is currently undergoing hemodialysis. He is currently awake and alert. His voice is quite weak and soft. He did not pass a swallow evaluation. There is concern regarding continued microaspiration. He is currently afebrile. Maintaining O2 saturations in the upper 90s on 4 L high flow nasal cannula. He is hemodynamically stable. Blood cultures reveal no growth. Urine culture reveals no growth. White count 4.7. Hemoglobin 9.5. Creatinine 3.15. He remains on Unasyn. Today's chest x-ray shows suspected progression of airspace disease/pulmonary edema/fluid volume overload. On 08/19/2018 patient seen in follow-up in intensive care unit, he is awake, alert, oriented to person and place. Remains extremely generally weak, cough is congested, and nonproductive, patient is not able to clear any phlegm. Sounds are positive for diffuse rhonchi throughout. He is currently on 8 L per nasal cannula, and his taxes 95-98%, afebrile, hemodynamically patient is stable , IV fluids include D5 W at a rate of 50 ML per hour. Patient has had a daily bedside swallow evaluation, and patient has been failing swallow evaluations on the daily basis. Patient is on nebulized bronchodilators, he is receiving lactulose, and his ammonia level this morning is less than 9. Antibiotic coverage includes Unasyn, his cultures have been negative. No fever or chills. Medical oncology is following, patient's alpha-fetoprotein levels came back greater than 100,000, and CT chest showed right hepatic dome mass worrisome for hepatocellular carcinoma, and hepatosplenomegaly, with surrounding ascites, scattered bilateral pulmonary nodules suspicious for diffuse metastatic disease. Patient functional that his is extremely debilitated, patient has been hospitalized between different facilities in [facility] and [facility] since March 2018, has had a very complicated protracted downward health trend. CODE STATUS is DO NOT RESUSCITATE, in view of patient's impaired ability to swallow, a decision needs to be made whether patient's family was to proceed with PEG tube placement and consider palliative care/comfort care. Patient has had daily dialysis. No new chest x-ray today, yesterday chest x- ray showed pulmonary edema and volume overload. Today's labs showed a white blood cell count of 5.7, hemoglobin 10.0, electrolytes were within normal limits , BUN is 20 and creatinine was 2.5, nephrology is following. The patient is seen again today 08/20/2018 in follow-up in the intensive care unit. He remains awake and alert. His voice is still quite soft and weak. He has not passed any swallow evaluations thus far. He is going down again for a barium swallow today. A Dobbhoff tube was inserted yesterday. He has been initiated on Nepro and free water flushes. His oxygen requirements have gone up in the past 24 hours. Currently on 10 L high flow nasal cannula to maintain O2 saturations in the low 90s. He's been afebrile. Hemodynamically stable. A culture reveals no growth. Urine culture reveals no growth. White count 6.1. Hemoglobin 9.3. Creatinine 3.04. Yesterday's chest x-ray revealed congestive heart failure with a right pleural effusion. He remains on bronchodilators and Unasyn. He remains overall quite weak. He is receiving hemodialysis again today. On today's evaluation of 08/21/2018, the patient is awake. He is following simple commands. He speaks in a very soft voice. Another swallow evaluation was done and the patient failed again. He has a Dobbhoff and the patient is receiving enteral feeding without any major difficulties. He is tolerating the Nepro and the free water flushes without any major difficulties and without residuals. His oxygenation and pulse ox is been fluctuating. He was a high flow oxygen. Earlier this morning he was placed on the percent nonrebreather facemask as the patient was having some desaturation. He has a deep congested cough. Chest x-ray findings are unchanged. He'll be undergoing another session of hemodialysis today. He remains extremely debilitated. We have changed his CODE STATUS to DNR/DNI. We have also made some recommendations for the guardian to consider hospice care knowing that his condition is very much grade and his comorbidities and none recovered well especially with a metastatic liver cancer and extreme debility and motor weakness. His elevated as well as also becoming impaired and the patient is currently receiving enteral feeding for nutrition. He is afebrile for now. His hemoglobin is stable. He remains on empiric antibiotic coverage with IV Unasyn. No hypoglycemic events. Is receiving lactulose regarding chronic liver disease/ cirrhosis with hepatic encephalopathy. On 08/22/2018, the patient is essentially the unchanged. He is on high flow oxygen and at times is using a nonrebreather fullface mask and 100%. While on high flow, the patient is on 15 L. Dobbhoff cath is in place and the patient is tolerating tube feeds without any major difficulties. The patient is very much debilitated and weak. He is arousable. He has a weak cough. He has a very soft voice. Chest x-ray findings and essentially unchanged and the patient has metastatic involvement throughout his left lung and his right lung from a liver primary. No fever. No chills. Remains on IV Unasyn. Failing swallow evaluation. DNR/DNI CODE STATUS. His last dose of dialysis was yesterday. Objective - Vital Signs Vital signs: Vital Signs Temp 98.2 F 08/22/18 12:00 Pulse 101 H 08/22/18 14:00 Resp 13 08/22/18 14:00 BP 126/76 08/22/18 14:00 Pulse Ox 93 L 08/22/18 14:00 Intake & Output 08/21/18 08/22/18 08/22/18 18:59 06:59 18:59 Intake Total 810 1090 1090 Output Total 61 3 0 Balance 749 1087 1090 Weight 135.6 kg 133.1 kg Intake: IV 400 210 180 Ampicillin-Sulbactam 3 gm 100 100 100 In Sodium Chloride 0.9% 100 ml @ 200 mls/hr IVPB Q12HR DANIEL Rx#:[id number] Dextrose 5% in Water 1, 200 000 ml @ 50 mls/hr IV . Q20H DANIEL Rx#:[id number] KVO 100 110 80 Oral 250 Tube Feeding 310 790 600 Other 100 90 60 Output: Urine 60 2 0 Stool 1 1 Other: Voiding Method Incontinent Incontinent Incontinent # Voids 0 0 ABP, PAP, CO, CI - Last Documented Cardiac Output 6.5 Cardiac Index 2.8 - Exam GENERAL EXAM: Alert, 72-year-old obese white male, very debilitated and weak. Currently on 15 L high flow nasal cannula. HEAD: Normocephalic/atraumatic. EYES: Normal reaction of pupils, equal size. Conjunctiva pink, sclera white. NOSE: Clear with pink turbinates. THROAT: No erythema or exudates. Voices very weak and soft. NECK: No masses, no JVD, no thyroid enlargement, no adenopathy. CHEST: No chest wall deformity. Symmetrical expansion. LUNGS: Equal air entry with diffuse rhonchi, patient has a weak nonproductive congested cough CVS: Regular rate and rhythm, normal S1 and S2, no gallops, no murmurs, no rubs ABDOMEN: Soft, nontender. No hepatosplenomegaly, normal bowel sounds, no guarding or rigidity. EXTREMITIES: No clubbing, 2+ lower extremity edema, bilateral lower extremity wounds, covered with dressings, no cyanosis, 2+ pulses and upper and lower extremities. Extremity edema is improving as the patient is undergoing dialysis with ultrafiltration. MUSCULOSKELETAL: Muscle strength and tone extremely weak. SPINE: No scoliosis or deformity SKIN: No rashes CENTRAL NERVOUS SYSTEM: Alert and oriented -2. No focal deficits, tone is normal in all 4 extremities, however there is considerable amount of motor weakness in all 4 extremities. - Labs CBC & Chem 7: 08/22/18 04:35 08/22/18 04:35 Labs: Abnormal Lab Results - Last 24 Hours (Table) 08/21/18 08/22/18 08/22/18 Range/Units 17:53 00:10 04:35 RBC (4.30-5.90) m/uL Hgb (13.0-17.5) gm/dL Hct (39.0-53.0) % MCV (80.0-100.0) fL MCHC (31.0-37.0) g/dL RDW (11.5-15.5) % Plt Count (150-450) k/uL Lymphocytes # (Manual) (1.0-4.8) k/uL Myelocytes # (Manual) (0) k/uL Sodium 135 L (137-145) mmol/L BUN 25 H (9-20) mg/dL Creatinine 3.27 H (0.66-1.25) mg/dL Glucose 156 H 164 H (74-99) mg/dL POC Glucose (mg/dL) 183 H (75-99) mg/dL Calcium 11.1 H (8.4-10.2) mg/dL Phosphorus 4.7 H (2.5-4.5) mg/dL Total Bilirubin 1.7 H (0.2-1.3) mg/dL AST 137 H (17-59) U/L Alkaline Phosphatase 298 H (38-126) U/L Albumin 2.7 L (3.5-5.0) g/dL 08/22/18 08/22/18 08/22/18 Range/Units 04:35 06:31 12:08 RBC 3.30 L (4.30-5.90) m/uL Hgb 10.1 L (13.0-17.5) gm/dL Hct 34.7 L (39.0-53.0) % MCV 105.0 H (80.0-100.0) fL MCHC 29.2 L (31.0-37.0) g/dL RDW 19.6 H (11.5-15.5) % Plt Count 62 L (150-450) k/uL Lymphocytes # (Manual) 0.96 L (1.0-4.8) k/uL Myelocytes # (Manual) 0.16 H (0) k/uL Sodium (137-145) mmol/L BUN (9-20) mg/dL Creatinine (0.66-1.25) mg/dL Glucose (74-99) mg/dL POC Glucose (mg/dL) 171 H 136 H (75-99) mg/dL Calcium (8.4-10.2) mg/dL Phosphorus (2.5-4.5) mg/dL Total Bilirubin (0.2-1.3) mg/dL AST (17-59) U/L Alkaline Phosphatase (38-126) U/L Albumin (3.5-5.0) g/dL Assessment and Plan Plan: Impression: #1 liver cirrhosis with hepatic encephalopathy did improved with lactulose. Nevertheless the patient remains extremely debilitated and his condition is unchanged and he is not doing any progress. Meanwhile, his swallow has become impaired and the patient is currently receiving enteral feeding for nutritional support through a Dobbhoff. For now, the patient is tolerating his tube feeds. He is also on lactulose 20 mg by mouth daily for hepatic encephalopathy regarding his liver cirrhosis. #2 profound weakness and medical debility seconds above-mentioned comorbidities. The overall examination is unchanged on today's evaluation. #3 Acute hypoxic/hypercapnic respiratory failure which is multifactorial. The patient has extensive metastatic deposits in his lungs bilaterally. The patient also had a component of CHF and fluid overload for which he is undergoing dialysis on a regular basis. Also, the patient is silently aspirating and for that reason he was placed nothing by mouth and currently is receiving enteral feeding for nutritional support through a Dobbhoff. #4 Morbid obesity. #5 Suspected Hepatocellular Carcinoma, Multiple Bilateral Pulmonary Nodules Suspicious for Diffuse Metastatic Disease. Alpha-Fetoprotein Levels Elevated. #6 Anemia secondary to above. #7 Thrombocytopenia secondary to above. #8 Acute on chronic renal failure with end-stage renal disease receiving renal replacement therapy with hemodialysis Thursday. #9 Diabetes mellitus #10 Hypertension, history of. #11 Hyperlipidemia. #12 History of GI bleed and esophageal varices status post banding. #13 Lactic acidosis contrary to suspected sepsis possibly cellulitis from the lower extremities and coccyx area wounds. Remains on Unasyn. Plan Prognosis remains very poor. No major changes in the patient's condition since yesterday. Unfortunately the prognosis remains extremely poor. I think the patient is at a standstill , where the patient is not doing any progress. His CODE STATUS is DNR/DNI. Further CODE STATUS changed to palliative care is recommended to the family. The patient was transferred to a medical floor with telemetry. Meanwhile, continue the supportive care.
[2018-08-22] MEDS: traMADol 50 MG TAB PO PRN (17:17)
[2018-08-22] MEDS: FUROSEMIDE 80 MG TAB PO SCH (17:18)
[2018-08-22 17:26] LABS: Glucose,Whole Blood 166 mg/dL (75-99)
--- NOTE | 2018-08-22 23:54 | PN ---
PROGRESS NOTE DATE OF SERVICE: 08/22/2018 REASON FOR VISIT: Bilateral lower extremity venous stasis ulcer, cellulitis. INTERVAL HISTORY: The patient is afebrile. The patient is hemodynamically stable. Has been transferred out of ICU. He is breathing comfortably. No chest pain. No cough. No abdominal pain or any diarrhea. PHYSICAL EXAMINATION: Blood pressure 143/75 with a pulse of 109, temperature 99.6. He is 95% on BiPAP. General description is an elderly male lying in bed in no distress. Respiratory system: Unlabored breathing with decreased breath sounds in the bases. No wheeze. Heart S1, S2. Regular rate and rhythm. Abdomen soft, no tenderness. Legs are currently wrapped up. No obvious drainage on the dressing. LABS: Hemoglobin is 10.1, white count 8.0, BUN of 25, creatinine 3.27. DIAGNOSTIC IMPRESSION AND PLAN: Patient with bilateral lower extremities venous stasis ulcer secondary to cellulitis. The patient is currently on IV Unasyn as the patient currently n.p.o. getting only Dobbhoff feeding. Continue local care with Aquacel Silver dressing and Ronaldo wrap. Family present at bedside. Questions answered. MMODL / IJN: [id number] /
[2018-08-23 00:13] LABS: Glucose,Whole Blood 176 mg/dL (75-99)
[2018-08-23] MEDS: INSULIN ASPART (NovoLOG) 100 UNIT/ML VIAL SQ SCH ×4 (00:25→17:41)
[2018-08-23] MEDS: SODIUM CHLORIDE 0.9% 500 ML 500 ML IV SCH (00:26)
[2018-08-23] MEDS: IPRATROPIUM-ALBUTEROL 3 ML NEB INHALATION SCH ×5 (03:33→20:40)
[2018-08-23 06:21] LABS: Glucose,Whole Blood 188 mg/dL (75-99)
[2018-08-23] MEDS: MIDODRINE 5 MG TAB PO SCH ×3 (06:33→17:41)
[2018-08-23] MEDS: SEVELAMER 800 MG TAB PO SCH ×3 (06:33→17:28)
[2018-08-23 06:36] LABS: Anisocytosis Slight; Basophils % (A) 0 %; Eosinophils # (A) 0.2 k/uL (0-0.7); Eosinophils % (A) 2 %; HCT 33.4 % (39.0-53.0); HGB 9.8 gm/dL (13.0-17.5); Hypochromasia Marked; Lymphocytes # (A) 1.3 k/uL (1.0-4.8); Lymphocytes % (A) 12 %; MCH 30.8 pg (25.0-35.0); MCHC 29.5 g/dL (31.0-37.0); MCV 104.5 fL (80.0-100.0); Macrocytosis Marked; Mean Platelet Volume 9.2; Monocytes # (A) 0.6 k/uL (0-1.0); Monocytes % (A) 6 %; Neutrophils # (A) 7.8 k/uL (1.3-7.7); Neutrophils % (A) 77 %; RBC 3.19 m/uL (4.30-5.90); RDW 19.8 % (11.5-15.5); WBC 10.1 k/uL (3.8-10.6)
[2018-08-23 06:42] LABS: Platelet Count 70 k/uL (150-450)
[2018-08-23 06:52] LABS: Albumin 2.7 g/dL (3.5-5.0); Magnesium 2.2 mg/dL (1.6-2.3); Phosphorus 4.5 mg/dL (2.5-4.5); Potassium 3.9 mmol/L (3.5-5.1); Total Bilirubin 1.8 mg/dL (0.2-1.3); Total Protein 7.7 g/dL (6.3-8.2)
--- NOTE | 2018-08-23 08:30 | CDI ---
Documentation Clarification Form Date: 08/19/2018 10:15:00 AM From: Mariana Greenberg RN, CCDS Admit Date: 08/14/2018 12:00:00 AM Patient Name: Dillon Morales Visit Number: [id number] Discharge Date: ATTENTION: The Clinical Documentation Specialists (CDI) and [facility] Coding Staff appreciate your assistance in clarifying documentation. Please respond to the clarification below the line at the bottom and electronically sign. The CDI & [facility] Coding staff will review the response and follow-up if needed. Please note: Queries are made part of the Legal Health Record. If you have any questions, please contact the author of this message via ITS. Dr. Claudia Esposito Volume overload, currently improving.Acute hypoxic and hypercapnic respiratory failure secondary to congestive heart failure and possible metastasis, currently improved. Documented in Nephrology Progress notes 08/18/2018 History/Risk Factors:72 Year old male presents to the ED for Altered Mental Status. Med/Hx DM , ESRD, HTN Clinical Indicators: VS/Pulse OX: 104/64 99 94% Chest X Ray: 08/14/2018 Congestive heart failure with right pleural effusion that is new compared to old exam. Cardiomegaly unchanged. Treatment: Dialysis Dependent on Hemodialysis. Pt had ultrafiltration 2018.Bipap In your professional opinion, can you please clarify the acuity and type of CHF if known? Systolic Heart Failure: Acute Chronic Acute on Chronic Diastolic Heart Failure: Acute Chronic Acute on Chronic Systolic & Diastolic Heart Failure: Acute Chronic Acute on Chronic Heart Failure CHF ruled out volume overload POA Unable to Determine Other, please specify (Last Revision: October 2017) MTDD
[2018-08-23 09:47] LABS: Parathyroid Hormone Intact 12.8 pg/mL (14.0-72.0)
[2018-08-23] MEDS: LACTULOSE 20 GM/30 ML CUP PO SCH (09:48)
[2018-08-23] MEDS: PANTOPRAZOLE 40 MG/10 ML VIAL IVP SCH (09:49)
[2018-08-23] MEDS: CINACALCET 30 MG TAB PO SCH (09:49)
[2018-08-23] MEDS: FUROSEMIDE 80 MG TAB PO SCH ×2 (09:49→17:41)
[2018-08-23] MEDS: AMPICILLIN-SULBACTAM 3 GM in SODIUM CHLORIDE 0.9% 100 ML IVPB SCH ×2 (09:51→20:16)
[2018-08-23 12:01] LABS: Glucose,Whole Blood 202 mg/dL (75-99)
[2018-08-23 12:53] LABS: Vitamin D 25 Hydroxy 19.8 ng/mL (30.0-100.0)
[2018-08-23] MEDS ORDERED: SODIUM CHLORIDE 0.9% 250 ML with PAMIDRONATE 30 MG IV ONE ×2 (15:00)
--- NOTE | 2018-08-23 15:55 | PN ---
PROGRESS NOTE Patient is seen for followup for end-stage renal disease. The patient is currently maintained on dialysis. He has significant fluid overload for which he was getting almost daily dialysis last week. This morning, he is not communicating much. Patient is maintained on BiPAP. He has a Dobbhoff tube in place. Blood pressure this morning was 116/75, heart rate about 100 per minute. Patient is afebrile. Examination of the heart S1, S2. Examination lungs bilateral breath sounds are heard. Decreased breath sounds in the bases. Abdomen is soft. Morbidly obese. Examination of lower extremities shows edema 2+ bilaterally with chronic skin changes. REHAB THERAPY MANAGER exam cannot be performed. LAB: Show sodium 138, potassium 3.9, hemoglobin 9.8, creatinine 4.03, calcium is 12.0. ASSESSMENT: 1. End-stage renal disease, currently dialysis dependent. It was mainly acute kidney injury. Currently, the patient is oliguric and dialysis dependent. He will be dialyzed again today. 2. Volume overload. We will continue with daily treatments to help with the volume status. 3. Hypercalcemia, most likely related to underlying malignancy. Vitamin D level was low at 19.8 and PTH was also appropriately low at 12.8. I will give a dose of pamidronate. 4. Liver cirrhosis and most likely underlying liver cancer with metastatic disease in the lungs. 5. Generalized debility. PLAN: Maintain daily dialysis. However, patient's prognosis is guarded. Consider comfort care measures and discontinuation of renal replacement therapy. I will give a dose of pamidronate as well. MMODL / IJN: [id number] /
--- NOTE | 2018-08-23 17:26 | P.PN ---
Subjective Progress Note Date: 08/23/18 Principal diagnosis: Respiratory and Renal Failing 100% NRB, Progressively worsening Objective - Vital Signs Vital signs: Vital Signs Temp 97.4 F L 08/23/18 13:18 Pulse 114 H 08/23/18 16:41 Resp 24 08/23/18 13:18 BP 117/69 08/23/18 13:18 Pulse Ox 97 08/23/18 13:18 Intake & Output 08/22/18 08/23/18 08/23/18 18:59 06:59 18:59 Intake Total 1570 800 570 Output Total 0 1 Balance 1570 799 570 Weight 132.5 kg Intake: IV 210 220 Ampicillin-Sulbactam 3 gm 100 100 In Sodium Chloride 0.9% 100 ml @ 200 mls/hr IVPB Q12HR [facility] Rx#:[id number] KVO 110 120 Intake, IV Titration 60 Amount Sodium Chloride 0.9% 500 60 ml 500 ml @ 10 mls/hr IV .Q24H [facility] Rx#:[id number] Oral 250 Tube Feeding 1050 700 350 Other 60 40 Output: Urine 0 0 Stool 1 Other: Voiding Method Incontinent Incontinent Incontinent # Voids 0 0 ABP, PAP, CO, CI - Last Documented Cardiac Output 6.5 Cardiac Index 2.8 - Exam Constitutional General appearance: Present: mod distress, nrb - EENT Eyes: Present: EOMI ENT: Present: hearing grossly normal - Respiratory Respiratory: bilateral: diminished - Cardiovascular Rhythm: tachy Heart sounds: normal: S1, S2 - Gastrointestinal General gastrointestinal: Present: decreased bowel sounds, soft - Integumentary Integumentary Comment(s): Bilateral lower extremities bandaged below knee, with active wound - Neurologic Neurologic: Present: CNII-XII intact - Musculoskeletal Musculoskeletal: Present: generalized weakness, strength equal bilaterally - Psychiatric Psychiatric Comment(s): Lethargic, appropriately responsive intermittently. - Labs CBC & Chem 7: 08/23/18 06:04 08/23/18 06:04 Labs: Abnormal Lab Results - Last 24 Hours (Table) 08/22/18 08/22/18 08/23/18 Range/Units 04:35 16:21 00:09 RBC (4.30-5.90) m/uL Hgb (13.0-17.5) gm/dL Hct (39.0-53.0) % MCV (80.0-100.0) fL MCHC (31.0-37.0) g/dL RDW (11.5-15.5) % Plt Count (150-450) k/uL Neutrophils # (1.3-7.7) k/uL BUN (9-20) mg/dL Creatinine (0.66-1.25) mg/dL Glucose (74-99) mg/dL POC Glucose (mg/dL) 166 H 176 H (75-99) mg/dL Calcium (8.4-10.2) mg/dL Total Bilirubin (0.2-1.3) mg/dL AST (17-59) U/L Alkaline Phosphatase (38-126) U/L Albumin (3.5-5.0) g/dL Vitamin D 25-Hydroxy 19.8 L (30.0-100.0) ng/mL PTH Intact 12.8 L (14.0-72.0) pg/mL 08/23/18 08/23/18 08/23/18 Range/Units 06:04 06:04 06:19 RBC 3.19 L (4.30-5.90) m/uL Hgb 9.8 L (13.0-17.5) gm/dL Hct 33.4 L (39.0-53.0) % MCV 104.5 H (80.0-100.0) fL MCHC 29.5 L (31.0-37.0) g/dL RDW 19.8 H (11.5-15.5) % Plt Count 70 L (150-450) k/uL Neutrophils # 7.8 H (1.3-7.7) k/uL BUN 34 H (9-20) mg/dL Creatinine 4.03 H (0.66-1.25) mg/dL Glucose 195 H (74-99) mg/dL POC Glucose (mg/dL) 188 H (75-99) mg/dL Calcium 12.0 H (8.4-10.2) mg/dL Total Bilirubin 1.8 H (0.2-1.3) mg/dL AST 134 H (17-59) U/L Alkaline Phosphatase 295 H (38-126) U/L Albumin 2.7 L (3.5-5.0) g/dL Vitamin D 25-Hydroxy (30.0-100.0) ng/mL PTH Intact (14.0-72.0) pg/mL 08/23/18 Range/Units 11:59 RBC (4.30-5.90) m/uL Hgb (13.0-17.5) gm/dL Hct (39.0-53.0) % MCV (80.0-100.0) fL MCHC (31.0-37.0) g/dL RDW (11.5-15.5) % Plt Count (150-450) k/uL Neutrophils # (1.3-7.7) k/uL BUN (9-20) mg/dL Creatinine (0.66-1.25) mg/dL Glucose (74-99) mg/dL POC Glucose (mg/dL) 202 H (75-99) mg/dL Calcium (8.4-10.2) mg/dL Total Bilirubin (0.2-1.3) mg/dL AST (17-59) U/L Alkaline Phosphatase (38-126) U/L Albumin (3.5-5.0) g/dL Vitamin D 25-Hydroxy (30.0-100.0) ng/mL PTH Intact (14.0-72.0) pg/mL Assessment and Plan Plan: Liver mass - Based on clinical criteria, the patient appears to have hepatocellular cancer which is at least multifocal in the liver, and probably metastatic and bilateral lung nodules noted. - Alpha-fetoprotein is markedly elevated, greater than upper limit of the measurement scale. - This has been discussed previously with the patient, and his nephew. - Discussed case today with RN and Nephrology, his overall status is declining , requiring higher supplemental oxygen, he is a DNR, family is not in agreement on goals of care although they are not present at this time. - From the cancer standpoint itself, the patient's prognosis is quite guarded. His disease is not resectable. The standard of care would be systemic targeted therapy with an objective of prolonging life in palliating symptoms. However effectiveness of the therapy ( Nexavar) is doubtful in patients with significant hepatic compromise, which the patient appears to have. With his other co morbidies and failures his short outcome prognosis appears poor ESRD - on dialysis - Nephrology Following Physician Attestation: I have completed the full history and physical and developed the above impression and plan and agree with dictation, dictated as a scribe
[2018-08-23 17:49] LABS: Glucose,Whole Blood 185 mg/dL (75-99)
[2018-08-23] MEDS: traMADol 50 MG TAB PO PRN (20:16)
[2018-08-24 00:35] LABS: Glucose,Whole Blood 245 mg/dL (75-99)
[2018-08-24] MEDS: INSULIN ASPART (NovoLOG) 100 UNIT/ML VIAL SQ SCH ×2 (00:43→08:27)
[2018-08-24] MEDS: SODIUM CHLORIDE 0.9% 500 ML 500 ML IV SCH (00:44)
[2018-08-24] MEDS: IPRATROPIUM-ALBUTEROL 3 ML NEB INHALATION SCH ×3 (01:02→09:44)
[2018-08-24 04:41] VITALS: PULSE 99
--- NOTE | 2018-08-24 06:15 | PN ---
PROGRESS NOTE DATE OF SERVICE: 08/23/2018. REASON FOR FOLLOWUP: Bilateral lower extremity venous stasis ulcer and cellulitis. INTERVAL HISTORY: The patient is afebrile. He seemed to have a problem with breathing and oxygenation requiring BiPAP off and on. However, the patient did have been refusing it. No nausea or vomiting has been reported or any diarrhea per the nursing staff. PHYSICAL EXAMINATION: On examination, blood pressure 116/65, pulse of 108, temperature 98.5. He is 93% on non-rebreather. General description is an elderly male lying in bed in no distress. RESPIRATORY SYSTEM: Unlabored breathing with decreased breath sounds at the bases. No wheeze. HEART: S1, S2. Regular rate and rhythm. ABDOMEN: Soft, no tenderness. Legs are currently wrapped up, no obvious drainage on the dressing. LABS: Hemoglobin 9.8, white count 10.1 with BUN of 34, creatinine 4.03. DIAGNOSTIC IMPRESSION AND PLAN: Patient with bilateral lower extremity venous stasis ulcer skin cellulitis, currently adequately treated with Unasyn. Local wound care with Aquacel Silver dressing and Ronaldo wrap. Continue with supportive care. MMODL / IJN: [id number] /
[2018-08-24 06:33] LABS: Glucose,Whole Blood 179 mg/dL (75-99)
[2018-08-24] MEDS: SEVELAMER 800 MG TAB PO SCH ×2 (08:25→11:26)
[2018-08-24] MEDS: PANTOPRAZOLE 40 MG/10 ML VIAL IVP SCH (09:10)
[2018-08-24] MEDS: MIDODRINE 5 MG TAB PO SCH (09:10)
[2018-08-24] MEDS: FUROSEMIDE 80 MG TAB PO SCH (09:10)
[2018-08-24] MEDS: AMPICILLIN-SULBACTAM 3 GM in SODIUM CHLORIDE 0.9% 100 ML IVPB SCH (09:10)
[2018-08-24] MEDS: CINACALCET 30 MG TAB PO SCH (09:10)
[2018-08-24] MEDS: LACTULOSE 20 GM/30 ML CUP PO SCH (09:10)
[2018-08-24 10:27] LABS: Glucose,Whole Blood 133 mg/dL (75-99)
[2018-08-24 10:27] LABS: Glucose,Whole Blood 521 mg/dL (75-99)
[2018-08-24 10:27] LABS: Glucose,Whole Blood 282 mg/dL (75-99)
[2018-08-24 11:10] VITALS: BP 103/61; RESP 22; TEMP 97
[2018-08-24 11:26] VITALS: BMI 41.7
--- NOTE | 2018-08-24 11:51 | P.PN ---
Subjective this is a pleasant 72 yo M with pmh of diabetes mellitus, hypertension and hyperlipidemia , Gi bleed and esophageal varices , he is more awake today , he denies chest pain or dyspnea, his oxygen saturation is 100% on while pt is currently on bipap. rest of vitals are stable. hemoglobin 9.8, creatinine 4.0 which is slightly increased from 2.5 , glucose at 188 mg/dl. chest xray showing stable right side consolidation and pleural effusion with multiple bilateral pulmonary nodules . pt is currently on unasyn and lactulose 20 mg daily. By mouth Lasix 80 mg twice a day. And Protonix 40 mg daily. Patient has been followed by pulmonary and hematology oncology. Patient is suspected to have hepatocellular carcinoma with elevated alpha-fetoprotein, associated with multiple bilateral pulmonary nodules. Comfort Care is recommended for the patient. No family at bedside, per family has a nephew who is the POA but he wants to make decisions through the patient's 2 sons and matured in the family is agreeable for now for Comfort Care. 08/24/2018 Patient remains confused. He was on BiPAP and follow commands. Today his nephew Mr. Woodson who has DURABLE POWER OF SENIOR FORMULATION SCIENTIST for the patient was present at bedside (a copy of the DPOA is present in the paper chart). He is aware of the patient conditions of possible liver cancer and metastasis to the lung. The situation and case was discussed with Mr. Woodson in details with the recommendation from other consultants are considered. And after discussion he agrees to hospice and Comfort Care. The management plan during hospice care is explained to Mr. Quintana and he verbalized understanding and acceptance. We will take the patient of BiPAP and put him on high flow oxygen as it makes him uncomfortable and he was trying to take it off. Give him pain medicine as needed. However patient currently denies any pain for me. As per Mr. Zheng no need to wait for the rest of the family because his 2 sons already know and he talked to them already Review of system: Nonapplicable medication: Tylenol , unasyn , protonix, insulin, ultram , lactulose, midodrine , Lasix and albuterol Objective - Vital Signs Vital signs: Vital Signs Temp 97 F L 08/24/18 08:00 Pulse 99 08/24/18 08:00 Resp 22 08/24/18 08:00 BP 103/61 08/24/18 08:00 Pulse Ox 97 08/24/18 08:00 Intake & Output 08/23/18 08/24/18 08/24/18 18:59 06:59 18:59 Intake Total 770 620 150 Balance 770 620 150 Weight 132 kg 132 kg Intake: IV 220 170 Ampicillin-Sulbactam 3 gm 100 100 In Sodium Chloride 0.9% 100 ml @ 200 mls/hr IVPB Q12HR [facility] Rx#:[id number] KVO 120 70 Oral 0 Tube Feeding 550 450 150 Other: Voiding Method Incontinent Incontinent Incontinent # Voids 0 1 # Bowel Movements 1 ABP, PAP, CO, CI - Last Documented Cardiac Output 6.5 Cardiac Index 2.8 - Exam -GENERAL: The patient is confused, not in any acute distress. obese HEENT: Pupils are round and equally reacting to light. EOMI. No scleral icterus. No conjunctival pallor. Normocephalic, atraumatic. No pharyngeal erythema. No thyromegaly. CARDIOVASCULAR: S1 and S2 present. No murmurs, rubs, or gallops. PULMONARY: Chest is clear to auscultation, no wheezing or crackles. ABDOMEN: Soft, nontender, nondistended, normoactive bowel sounds. No palpable organomegaly. MUSCULOSKELETAL: No joint swelling or deformity. EXTREMITIES: No cyanosis, clubbing, or pedal edema. NEUROLOGICAL: Gross neurological examination did not reveal any focal deficits. SKIN: No rashes. - Labs CBC & Chem 7: 08/23/18 06:04 08/23/18 06:04 Labs: Abnormal Lab Results - Last 24 Hours (Table) 08/21/18 08/21/18 08/21/18 Range/Units 17:13 17:14 17:15 POC Glucose (mg/dL) 521 H 282 H 133 H (75-99) mg/dL Vitamin D 25-Hydroxy (30.0-100.0) ng/mL 08/22/18 08/23/18 08/23/18 Range/Units 04:35 11:59 17:35 POC Glucose (mg/dL) 202 H 185 H (75-99) mg/dL Vitamin D 25-Hydroxy 19.8 L (30.0-100.0) ng/mL 02/12/19 02/12/19 Range/Units 00:35 06:31 POC Glucose (mg/dL) 245 H 179 H (75-99) mg/dL Vitamin D 25-Hydroxy (30.0-100.0) ng/mL Assessment and Plan Assessment: metabolic encephalopathy , improving bilateral pulmonary nodules suspicious for metastatic disease. metastatic liver cancer, possible hepatocellular carcinoma. High AFP thrombcytopenia high ammonia level history of diabetes mellitus essential hypertension history of hyperlipidemia history of GI bleed and esophageal varices history of alcohol abuse Plan: this is a pleasant 72 yo M who presents with metabolic encephalopathy and mostly metastatic liver cancer. Pulmonary and oncology team both recommended palliative therapy for the patient. His the POA, Mr. Zheng agreed for patient for hospice care. Consult for hospice team has been placed. Patient BiPAP was replaced by high flow cannula/ mask. Continue with pain management. Prognosis is very poor
--- NOTE | 2018-08-24 19:54 | PN ---
PROGRESS NOTE Patient is seen for followup for dialysis-dependent renal failure. His nephew is present at bedside and it appears that CODE STATUS has been changed to COMFORT CARE MEASURES. We will not be dialyzing the patient today. Patient is currently comfortable, awake. He is not in any acute distress. Blood pressure this morning was 103/61, heart rate about 99 per minute. Patient is afebrile. Examination shows abdominal distention, about 2+ edema bilaterally. Labs from yesterday show potassium 3.9, hemoglobin 9.8 g/dL. ASSESSMENT: 1. Acute kidney injury, currently hemodialysis-dependent. 2. Metastatic liver cancer. 3. Generalized debility. 4. Hypercalcemia, most likely related to underlying malignancy. PLAN: Agree with comfort care measures. Will hold off on dialysis. MMODL / IJN: [id number] /
--- NOTE | 2018-08-25 09:23 | CDI ---
Documentation Clarification Form Date: 08/25/2018 CDS: Mariana Greenberg RN CCDS Admit Date: 08/14/2018 Patient Name: Dillon Morales ATTENTION: The Clinical Documentation Specialists (CDI) and [facility] Coding Staff appreciate your assistance in clarifying documentation. Please respond to the clarification below the line at the bottom and electronically sign. The CDI & [facility] Coding staff will review the response and follow-up if needed. Please note: Queries are made part of the Legal Health Record. If you have any questions, please contact the author of this message via ITS. Dr. Esposito Volume overload, currently improving. Acute hypoxic and hypercapnic respiratory failure secondary to congestive heart failure and possible metastasis, currently improved. Documented in Nephrology Progress notes 08/18/2018 History/Risk Factors:72 Year old male presents to the ED for Altered Mental Status. Med/Hx DM , ESRD, HTN Clinical Indicators: VS/Pulse OX: 104/64 99 94% Chest X Ray: 08/14/2018 Congestive heart failure with right pleural effusion that is new compared to old exam. Cardiomegaly unchanged. Treatment: Dialysis Dependent maintained on Hemodialysis. Pt had ultrafiltration 08/17/2018. on Bipap In your professional opinion, can you please clarify the acuity and type of CHF if known? Systolic Heart Failure: Acute Chronic Acute on Chronic Diastolic Heart Failure: Acute Chronic Acute on Chronic Systolic & Diastolic Heart Failure: Acute Chronic Acute on Chronic Heart Failure Unable to Determine Other, please specify CHF ruled out volume overload POA (Last Revision: October 2017) MTDD
--- NOTE | 2018-08-26 10:27 | CDI ---
Documentation Clarification Form Date: 08/19/2018 10:15:00 AM From: Mariana Greenberg RN CCDS Admit Date: 08/14/2018 12:00:00 AM Patient Name: Dillon Morales Visit Number: [id number] Discharge Date: 08/24/2018 12:53:00 PM ATTENTION: The Clinical Documentation Specialists (CDI) and [facility] Coding Staff appreciate your assistance in clarifying documentation. Please respond to the clarification below the line at the bottom and electronically sign. The CDI & [facility] Coding staff will review the response and follow-up if needed. Please note: Queries are made part of the Legal Health Record. If you have any questions, please contact the author of this message via ITS. Dr. Claudia Esposito, Documented in Nephrology Progress notes 08/18/2018 Volume overload, currently improving. Acute hypoxic and hypercapnic respiratory failure secondary to congestive heart failure and possible metastasis, currently improved. History/Risk Factors:72 Year old male presents to the ED for Altered Mental Status. Med/Hx DM , ESRD, HTN Clinical Indicators: VS/Pulse OX: 104/64 99 94% Chest X Ray: 08/14/2018 Congestive heart failure with right pleural effusion that is new compared to old exam. Cardiomegaly unchanged. Treatment: Dialysis Dependent maintained on Hemodialysis. Pt had ultrafiltration 08/17/2018. on Bipap In your professional opinion, can you please clarify the acuity and type of CHF if known? Systolic Heart Failure: * Acute * Chronic * Acute on Chronic Diastolic Heart Failure: * Acute * Chronic * Acute on Chronic Systolic & Diastolic Heart Failure: * Acute * Chronic * Acute on Chronic Heart Failure Unable to Determine Other, please specify acute on chronic, diastolic CHF CHF ruled out volume overload POA (Last Revision: October 2017) MTDD
--- NOTE | 2018-08-27 08:21 | CDI ---
Documentation Clarification Form Date: 08/19/2018 10:15:00 AM From: Mariana Greenberg Phone: Admit Date: 08/14/2018 12:00:00 AM Patient Name: Dillon Morales Visit Number: [id number] Discharge Date: 08/24/2018 12:53:00 PM ATTENTION: The Clinical Documentation Specialists (CDI) and [facility] Coding Staff appreciate your assistance in clarifying documentation. Please respond to the clarification below the line at the bottom and electronically sign. The CDI & [facility] Coding staff will review the response and follow-up if needed. Please note: Queries are made part of the Legal Health Record. If you have any questions, please contact the author of this message via ITS. Dr. Claudia Esposito Volume overload, currently improving. Acute hypoxic and hypercapnic respiratory failure secondary to congestive heart failure and possible metastasis, currently improved. Documented in Nephrology Progress notes 08/18/2018 History/Risk Factors:72 Year old male presents to the ED for Altered Mental Status. Med/Hx DM , ESRD, HTN Clinical Indicators: VS/Pulse OX: 104/64 99 94% Chest X Ray: 08/14/2018 Congestive heart failure with right pleural effusion that is new compared to old exam. Cardiomegaly unchanged. Treatment: Dialysis Dependent maintained on Hemodialysis. Pt had ultrafiltration 08/17/2018. on Bipap In your professional opinion, can you please clarify the acuity and type of CHF if known? Systolic Heart Failure: Acute Chronic Acute on Chronic Diastolic Heart Failure: Acute Chronic Acute on Chronic Systolic & Diastolic Heart Failure: Acute Chronic Acute on Chronic Heart Failure Unable to Determine Other, please specify CHF ruled out volume overload POA (Last Revision: October 2017) MTDD
--- NOTE | 2018-08-31 07:36 | CDI ---
Documentation Clarification Form Date: 08/19/2018 10:15:00 AM From: Mariana Greenberg RN CCDS Admit Date: 08/14/2018 12:00:00 AM Patient Name: Dillon Morales Visit Number: [id number] Discharge Date: 08/24/2018 12:53:00 PM ATTENTION: The Clinical Documentation Specialists (CDI) and [facility] Coding Staff appreciate your assistance in clarifying documentation. Please respond to the clarification below the line at the bottom and electronically sign. The CDI & [facility] Coding staff will review the response and follow-up if needed. Please note: Queries are made part of the Legal Health Record. If you have any questions, please contact the author of this message via ITS. Dr. Claudia Esposito Volume overload, currently improving. Acute hypoxic and hypercapnic respiratory failure secondary to congestive heart failure and possible metastasis, currently improved. Documented in Nephrology Progress notes 08/18/2018 History/Risk Factors:72 Year old male presents to the ED for Altered Mental Status. Med/Hx DM , ESRD, HTN Clinical Indicators: VS/Pulse OX: 104/64 99 94% Chest X Ray: 08/14/2018 Congestive heart failure with right pleural effusion that is new compared to old exam. Cardiomegaly unchanged. Treatment: Dialysis Dependent maintained on Hemodialysis. Pt had ultrafiltration 08/17/2018. on Bipap In your professional opinion, can you please clarify the acuity and type of CHF if known? Systolic Heart Failure: * Acute * Chronic * Acute on Chronic Diastolic Heart Failure: * Acute * Chronic * Acute on Chronic Systolic & Diastolic Heart Failure: * Acute * Chronic * Acute on Chronic Heart Failure Unable to Determine Other, please specify CHF ruled out volume overload POA (Last Revision: October 2017) MTDD
--- NOTE | 2018-09-03 15:29 | P.PN ---
Subjective this is a pleasant 72 yo M with pmh of diabetes mellitus, hypertension and hyperlipidemia , Gi bleed and esophageal varices , he is more awake today , he denies chest pain or dyspnea, his oxygen saturation is 100% on while pt is currently on bipap. rest of vitals are stable. hemoglobin 9.8, creatinine 4.0 which is slightly increased from 2.5 , glucose at 188 mg/dl. chest xray showing stable right side consolidation and pleural effusion with multiple bilateral pulmonary nodules . pt is currently on unasyn and lactulose 20 mg daily. By mouth Lasix 80 mg twice a day. And Protonix 40 mg daily. Patient has been followed by pulmonary and hematology oncology. Patient is suspected to have hepatocellular carcinoma with elevated alpha-fetoprotein, associated with multiple bilateral pulmonary nodules. Comfort Care is recommended for the patient. No family at bedside, per family has a nephew who is the POA but he wants to make decisions through the patient's 2 sons and matured in the family is agreeable for now for Comfort Care. Review of system: Nonapplicable medication: Tylenol , unasyn , protonix, insulin, ultram , lactulose, midodrine , Lasix and albuterol Objective - Vital Signs Vital signs: Vital Signs Temp 98.8 F 08/23/18 04:00 Pulse 102 H 08/23/18 08:20 Resp 24 08/23/18 04:00 BP 108/72 08/23/18 04:00 Pulse Ox 97 08/23/18 04:00 Intake & Output 08/22/18 08/23/18 08/23/18 18:59 06:59 18:59 Intake Total 1570 800 Output Total 0 1 Balance 1570 799 Weight 132.5 kg Intake: IV 210 Ampicillin-Sulbactam 3 gm 100 In Sodium Chloride 0.9% 100 ml @ 200 mls/hr IVPB Q12HR DANIEL Rx#:[id number] KVO 110 Intake, IV Titration 60 Amount Sodium Chloride 0.9% 500 60 ml 500 ml @ 10 mls/hr IV .Q24H DANIEL Rx#:[id number] Oral 250 Tube Feeding 1050 700 Other 60 40 Output: Urine 0 0 Stool 1 Other: Voiding Method Incontinent Incontinent # Voids 0 0 ABP, PAP, CO, CI - Last Documented Cardiac Output 6.5 Cardiac Index 2.8 - Exam GENERAL: The patient is alert and oriented x3, not in any acute distress. Well developed, well nourished. HEENT: Pupils are round and equally reacting to light. EOMI. No scleral icterus. No conjunctival pallor. Normocephalic, atraumatic. No pharyngeal erythema. No thyromegaly. CARDIOVASCULAR: S1 and S2 present. No murmurs, rubs, or gallops. PULMONARY: Chest is clear to auscultation, no wheezing or crackles. ABDOMEN: Soft, nontender, nondistended, normoactive bowel sounds. No palpable organomegaly. MUSCULOSKELETAL: No joint swelling or deformity. EXTREMITIES: No cyanosis, clubbing, or pedal edema. NEUROLOGICAL: Gross neurological examination did not reveal any focal deficits. SKIN: No rashes. - Labs CBC & Chem 7: 08/23/18 06:04 08/23/18 06:04 Labs: Abnormal Lab Results - Last 24 Hours (Table) 08/22/18 08/22/18 08/22/18 Range/Units 04:35 12:08 16:21 RBC (4.30-5.90) m/uL Hgb (13.0-17.5) gm/dL Hct (39.0-53.0) % MCV (80.0-100.0) fL MCHC (31.0-37.0) g/dL RDW (11.5-15.5) % Plt Count (150-450) k/uL Neutrophils # (1.3-7.7) k/uL Lymphocytes # (Manual) 0.96 L (1.0-4.8) k/uL Myelocytes # (Manual) 0.16 H (0) k/uL BUN (9-20) mg/dL Creatinine (0.66-1.25) mg/dL Glucose (74-99) mg/dL POC Glucose (mg/dL) 136 H 166 H (75-99) mg/dL Calcium (8.4-10.2) mg/dL Total Bilirubin (0.2-1.3) mg/dL AST (17-59) U/L Alkaline Phosphatase (38-126) U/L Albumin (3.5-5.0) g/dL 08/23/18 08/23/18 08/23/18 Range/Units 00:09 06:04 06:04 RBC 3.19 L (4.30-5.90) m/uL Hgb 9.8 L (13.0-17.5) gm/dL Hct 33.4 L (39.0-53.0) % MCV 104.5 H (80.0-100.0) fL MCHC 29.5 L (31.0-37.0) g/dL RDW 19.8 H (11.5-15.5) % Plt Count 70 L (150-450) k/uL Neutrophils # 7.8 H (1.3-7.7) k/uL Lymphocytes # (Manual) (1.0-4.8) k/uL Myelocytes # (Manual) (0) k/uL BUN 34 H (9-20) mg/dL Creatinine 4.03 H (0.66-1.25) mg/dL Glucose 195 H (74-99) mg/dL POC Glucose (mg/dL) 176 H (75-99) mg/dL Calcium 12.0 H (8.4-10.2) mg/dL Total Bilirubin 1.8 H (0.2-1.3) mg/dL AST 134 H (17-59) U/L Alkaline Phosphatase 295 H (38-126) U/L Albumin 2.7 L (3.5-5.0) g/dL 08/23/18 Range/Units 06:19 RBC (4.30-5.90) m/uL Hgb (13.0-17.5) gm/dL Hct (39.0-53.0) % MCV (80.0-100.0) fL MCHC (31.0-37.0) g/dL RDW (11.5-15.5) % Plt Count (150-450) k/uL Neutrophils # (1.3-7.7) k/uL Lymphocytes # (Manual) (1.0-4.8) k/uL Myelocytes # (Manual) (0) k/uL BUN (9-20) mg/dL Creatinine (0.66-1.25) mg/dL Glucose (74-99) mg/dL POC Glucose (mg/dL) 188 H (75-99) mg/dL Calcium (8.4-10.2) mg/dL Total Bilirubin (0.2-1.3) mg/dL AST (17-59) U/L Alkaline Phosphatase (38-126) U/L Albumin (3.5-5.0) g/dL Assessment and Plan Assessment: metabolic encephalopathy , improving bilateral pulmonary nodules suspicious for metastatic disease metastatic liver cancer, possible hepatocellular carcinoma. High AFP thrombcytopenia high ammonia level history of diabetes mellitus essential hypertension history of hyperlipidemia history of GI bleed and esophageal varices history of alcohol abuse Plan: this is a pleasant 72 yo M who presents with metabolic encephalopathy , continue in the general medical floor with pulmonary/critical care team monitoring the pt closely . contineu with unasyn antibiotic , lactulose therapy with monitoring how many bowel movements each day.hematology/oncology consult is appreciated continue with the same treatment , continue with symptomatic treatment , resume home medication , monitor lytes and vitals including glucose , DVT px : no heparin due to low platelet count, hematology team on the case GI px protonix Prognosis is guarded
== END 2018-08-24 12:53 | disposition hospice, inpatient (51) | DRG 871 ==
LOC: EC 22:09 → UNDOADMOB 22:46 → 4SSUR 22:46 → 2SICU 08-14 03:40 → 3SCARD 08-22 15:26
PROVIDERS: ADMIT Hospitalist; ATTEND Hospitalist
PROC: 5A09457 Assistance with Respiratory Ventilation, 24-96 Consecutive Hours, Continuous Positive Airway Pressure (ICD-10-PCS; principal; 2018-08-14)
PROC: 5A1D70Z Performance of Urinary Filtration, Intermittent, Less than 6 Hours Per Day (ICD-10-PCS; 2018-08-16)
DX: A41.9 Sepsis, unspecified organism (principal); G93.41 Metabolic encephalopathy; J96.01 Acute respiratory failure with hypoxia; J96.02 Acute respiratory failure with hypercapnia; N17.0 Acute kidney failure with tubular necrosis; N18.6 End stage renal disease; C22.0 Liver cell carcinoma; C78.00 Secondary malignant neoplasm of unspecified lung; Z68.41 Body mass index [BMI] 40.0-44.9, adult; E87.2 Acidosis; I76 Septic arterial embolism; L03.115 Cellulitis of right lower limb; L03.116 Cellulitis of left lower limb; N39.0 Urinary tract infection, site not specified; I12.0 Hypertensive chronic kidney disease with stage 5 chronic kidney disease or end stage renal disease; D64.9 Anemia, unspecified; D69.59 Other secondary thrombocytopenia; E11.22 Type 2 diabetes mellitus with diabetic chronic kidney disease; E66.01 Morbid (severe) obesity due to excess calories; E78.5 Hyperlipidemia, unspecified; E83.39 Other disorders of phosphorus metabolism; E83.52 Hypercalcemia; I25.10 Atherosclerotic heart disease of native coronary artery without angina pectoris; I83.019 Varicose veins of right lower extremity with ulcer of unspecified site; I83.029 Varicose veins of left lower extremity with ulcer of unspecified site; K21.9 Gastro-esophageal reflux disease without esophagitis; K72.90 Hepatic failure, unspecified without coma; K70.30 Alcoholic cirrhosis of liver without ascites; F10.21 Alcohol dependence, in remission; L89.152 Pressure ulcer of sacral region, stage 2; R65.20 Severe sepsis without septic shock; Z51.5 Encounter for palliative care; Z66 Do not resuscitate; Z79.899 Other long term (current) drug therapy; Z82.49 Family history of ischemic heart disease and other diseases of the circulatory system; Z99.2 Dependence on renal dialysis; Z87.19 Personal history of other diseases of the digestive system; Z79.891 Long term (current) use of opiate analgesic; M19.90 Unspecified osteoarthritis, unspecified site; E11.51 Type 2 diabetes mellitus with diabetic peripheral angiopathy without gangrene; E87.70 Fluid overload, unspecified
CPT/HCPCS: 36600; 71045; 71260; 74018; 74230; 80048; 80053; 81001; 82105; 82140; 82306; 82607; 82652; 82728; 82747; 82805; 82947; 83036; 83540; 83550; 83605; 83735; 83970; 84100; 84132; 84484; 85025; 85027; 85045; 87040; 87086; 90935; 93005; 94640; 94660; 96360; 99285

== ENCOUNTER 2018-08-24 12:32 | Inpatient (IN) | payer MEDICAID ==
[2018-08-24] MEDS ORDERED: LORazepam 2 MG/ML INJ IV PRN (12:35)
[2018-08-24] MEDS ORDERED: ATROPINE OPHTH SOLN 1% 5ML BTL SUBLINGUAL PRN (12:35)
[2018-08-24] MEDS ORDERED: MORPHINE SULFATE 4 MG/ML SYRINGE IV PRN (12:35)
[2018-08-24] MEDS ORDERED: ACETAMINOPHEN SUPPOSITORY 650 MG SUPP RECTAL PRN (12:35)
[2018-08-24] MEDS ORDERED: ONDANSETRON 4 MG/2 ML VIAL IVP PRN (12:35)
[2018-08-24] MEDS ORDERED: BISACODYL 10 MG SUPP RECTAL PRN (12:38)
[2018-08-24] MEDS ORDERED: MORPHINE SULFATE (100 MG/2 ML) 100 MG in SODIUM CHLORIDE 0.9% 100 ML IV SCH (12:45)
[2018-08-24] MEDS ORDERED: SCOPOLAMINE 1.5MG/72HR PATCH TRANSDERM SCH (12:45)
[2018-08-25 00:09] VITALS: PULSE 71; RESP 13
[2018-08-25 00:18] VITALS: BP 125/61
--- NOTE | 2018-09-03 15:37 | P.DS ---
Providers Date of admission: 08/24/18 13:38 Attending physician: Brandee Thrasher Primary care physician: [facility] Course: metabolic encephalopathy , bilateral pulmonary nodules suspicious for metastatic disease. metastatic liver cancer, possible hepatocellular carcinoma. High AFP thrombcytopenia high ammonia level history of diabetes mellitus essential hypertension history of hyperlipidemia history of GI bleed and esophageal varices history of alcohol abuse hospital course this is a 72 yo M with pmh of diabetes mellitus, hypertension and hyperlipidemia , Gi bleed and esophageal varices , he persent with resp distress and Bipap dependant, due to liver cancer metastatic to the lung on both side as there multiple nodules, prognosis was extremely poor and his cousin who is his DPOA agrees to comfort care and hospice [facility] and he informed me his 2 sons are agree with this, morphine is provided , pt kept comfortable till expiration, pt within hours , Plan - Discharge Summary New Discharge Prescriptions: No Action Simethicone 80 mg PO Q6HR guaiFENesin [Diabetic Tussin Ex] 200 mg PO Q4HR PRN PRN Reason: Cough Petrolatum, White [Aquaphor] 1 applic TOPICAL DAILY Propranolol HCl [Inderal] 60 mg PO TID Acetaminophen Tab [Tylenol] 650 mg PO TID PRN PRN Reason: Pain Nystatin 100,000Unit/gm Cream [Mycostatin Cream] 1 applic TOPICAL DIRECTED Pravastatin Sodium [Pravachol] 40 mg PO HS Famotidine [Pepcid] 20 mg PO HS HYDROcodone/APAP 5-325MG [[place] 5-325] 1 tab PO DIRECTED Midodrine HCl [ProAmatine] 10 mg PO MOWEFR Ergocalciferol (Vitamin D2) [Drisdol] 50,000 unit PO Q7DAYS Discharge Medication List Acetaminophen Tab [Tylenol] 650 mg PO TID PRN 08/13/18 [History] Ergocalciferol (Vitamin D2) [Drisdol] 50,000 unit PO Q7DAYS 08/13/18 [History] Famotidine [Pepcid] 20 mg PO HS 08/13/18 [History] HYDROcodone/APAP 5-325MG [[place] 5-325] 1 tab PO DIRECTED 08/13/18 [History] Midodrine HCl [ProAmatine] 10 mg PO MOWEFR 08/13/18 [History] Nystatin 100,000Unit/gm Cream [Mycostatin Cream] 1 applic TOPICAL DIRECTED [History] Petrolatum, White [Aquaphor] 1 applic TOPICAL DAILY 08/13/18 [History] Pravastatin Sodium [Pravachol] 40 mg PO HS 08/13/18 [History] Propranolol HCl [Inderal] 60 mg PO TID 08/13/18 [History] Simethicone 80 mg PO Q6HR 08/13/18 [History] guaiFENesin [Diabetic Tussin Ex] 200 mg PO Q4HR PRN 08/13/18 [History] Discharge Disposition: - Preliminary Cause of Preliminary Cause of : liver cancer with possible mets to the lungs
== END 2018-08-25 03:30 | disposition expired | DRG 951 ==
LOC: 3SCARD 13:38
PROVIDERS: ADMIT Hospitalist; ATTEND Hospitalist
DX: Z51.5 Encounter for palliative care (principal); N18.6 End stage renal disease; A41.9 Sepsis, unspecified organism; J96.00 Acute respiratory failure, unspecified whether with hypoxia or hypercapnia; I12.0 Hypertensive chronic kidney disease with stage 5 chronic kidney disease or end stage renal disease; G93.40 Encephalopathy, unspecified; L03.116 Cellulitis of left lower limb; L03.115 Cellulitis of right lower limb; C22.7 Other specified carcinomas of liver; C78.00 Secondary malignant neoplasm of unspecified lung; E11.22 Type 2 diabetes mellitus with diabetic chronic kidney disease; E78.5 Hyperlipidemia, unspecified; M19.90 Unspecified osteoarthritis, unspecified site; D64.9 Anemia, unspecified; Z66 Do not resuscitate; Z99.2 Dependence on renal dialysis; Z90.49 Acquired absence of other specified parts of digestive tract; Z79.899 Other long term (current) drug therapy; Z82.49 Family history of ischemic heart disease and other diseases of the circulatory system